=== PATIENT | female | born 1940 | race Caucasian/White ===

== ENCOUNTER 2023-12-13 09:39 | Inpatient (IN) | payer MEDICARE, SELFPAY ==
[2023-12-13] VITALS (16 sets, daily range): BP systolic 91–166; BP diastolic 59–95; PULSE 73–97; RESP 13–26; TEMP 36.3–36.5; O2SAT 94–99
--- NOTE | ~2023-12-13 | XR_ITS ---
EXAMINATION: XR chest 1V DATE: 12/13/2023 10:25 INDICATION: Syncope. Hypoxia. TECHNIQUE: A single frontal view of the chest was obtained. COMPARISON: None. FINDINGS: There is mild atelectasis at left lung base. A horizontal skinfold overlies the upper chest . No pleural effusion or pneumothorax. Cardiomegaly is noted. IMPRESSION: 1. Mild atelectasis at left lung base. 2. Cardiomegaly. Reviewed, dictated and finalized at location []
--- NOTE | ~2023-12-13 | MR_ITS ---
EXAMINATION: MR brain/brain stem wo con DATE: 12/17/2023 11:45 INDICATION: Worsening stroke. TECHNIQUE: Magnetic resonance imaging (MRI) of the brain and brainstem was performed without intraven ous contrast. COMPARISON: Head CT 12/16/2023, 12/13/23 FINDINGS: There is an acute infarct in left cerebellum. There is susceptibility artifact in this dist ribution. There are infarcts involving left parietal lobe, left insula, and left occipital lobe. Ther e is an old infarct in the right thalamus. There are scattered areas of nonspecific increased T2-weig hted signal intensity in the cerebral white matter, which is within normal limits for the patient's a ge. There is no abnormal mass lesion. The ventricles are normal. There is mild mucosal thickening in the ethmoid sinuses. There are likely changes of ocular lens replacement surgeries. The mastoid air c ells are normal. IMPRESSION: 1. Acute infarct in left cerebellum. Susceptibility artifact in this distribution may be calcificatio ns or blood products. 2. Infarcts involving the left parietal lobe, left insula, and left occipital lobe, likely subacute o r chronic. 3. Old infarct in the right thalamus. Reviewed, dictated and finalized at location A. ECTION AGENT IMPRESSION: 1. Acute infarct in left cerebellum. Susceptibility artifact in this distributi on may be calcifications or blood products. 2. Infarcts involving the left parietal lobe, left insula, and left occipital l obe, likely subacute or chronic. 3. Old infarct in the right thalamus.
--- NOTE | ~2023-12-13 | US_ITS ---
EXAMINATION: US venous doppler [facility] DATE: 12/15/2023 12:54 INDICATION: Deep venous anastomosis TECHNIQUE: Grayscale ultrasound images without and with compression and Doppler ultrasound images of the bilateral lower extremity veins were obtained. COMPARISON: None. FINDINGS: Noncompressible thrombus in the right peroneal veins. The visualized portions of right common femoral vein, profunda (deep) femoral vein, femoral vein, popliteal vein, posterior tibial veins, gastrocnem ius vein and greater saphenous vein outflow are patent. Noncompressible thrombus in the left posterior tibial and peroneal veins. The visualized portions of left common femoral vein, profunda femoral vein, femoral vein, popliteal vein, gastrocnemius vein and greater saphenous vein outflow are patent. IMPRESSION: 1. Bilateral [id number] deep venous thrombosis in the right peroneal vein and left posterior tib ial and peroneal veins. Reviewed, dictated and finalized at location A. IMPRESSION: 1. Bilateral [id number] deep venous thrombosis in the right peroneal vein and left posterior tibial and peroneal veins.
--- NOTE | ~2023-12-13 | CT_ITS ---
EXAMINATION: CT chest abdomen pelvis w con DATE: 12/13/2023 14:02 INDICATION: Altered mental status. Vomiting. TECHNIQUE: Computed tomography (CT) of the chest, abdomen, and pelvis was performed with 100 mL Omnip aque 350 intravenous contrast. Automated exposure control and iterative reconstruction technique were employed. The dose-length product was 773.09 mGy-cm. COMPARISON: None FINDINGS: CHEST CT: The lungs demonstrate mild atelectasis. No pleural effusion. Cardiomegaly is noted. There are coronar y artery calcifications. No pericardial effusion. There is a small sliding hiatal hernia. There are n odules in the thyroid measuring up to 8 mm, likely not clinically significant. There is mild thoracic spondylosis. ABDOMEN/PELVIS CT: The liver, spleen, gallbladder, pancreas, and adrenal glands are normal. There is cortical thinning o f the kidneys. There are cysts in left kidney measuring up to 9 mm. There are no dilated loops of bow el. The appendix is normal. There is calcified atherosclerosis of the aorta and many of the other art eries. There is a Wheeler catheter in expected position. There are no pathologically enlarged lymph nod es. There is no free intraperitoneal fluid. There is severe lumbar spondylosis. IMPRESSION: 1. Small sliding hiatal hernia. Reviewed, dictated and finalized at location B.
--- NOTE | ~2023-12-13 | CT_ITS ---
EXAMINATION: CT brain wo con DATE: 12/16/2023 11:19 INDICATION: Stroke presenting with confusion TECHNIQUE: Computed tomography (CT) of the head was performed without intravenous contrast. Sagittal and coronal reconstructions were performed. The mA was adjusted according to patient size. Iterative reconstruction technique was employed. The dose-length product was 605.33 mGy-cm. COMPARISON: head CT dated 12/13/2023 FINDINGS: Again seen is a small region of encephalomalacia in the left cerebral hemisphere consistent with police commissioner augustus infarct. There are a few additional small old lacunar infarcts including at the right basal gangl ia, right thalamus, bilateral subinsular white matter and the anterior left frontal lobe periventricu lar white matter. There is mild scattered white matter hypoattenuation consistent with chronic small vessel ischemic disease. No acute intracranial hemorrhage, acute infarction or abnormal extra axial f luid collection. Symmetric prominence of the sulci consistent with mild age-appropriate diffuse cereb ral volume loss. Ventricles are normal and symmetric. No mass/mass effect. Changes of bilateral intr aocular lens replacement. The orbits, paranasal sinuses and mastoid air cells are normal. Intracrania l calcified cerebral atherosclerosis is noted. IMPRESSION: 1. No acute intracranial process. 2. Unchanged old infarcts in the left cerebellar hemisphere, right thalamus and basal ganglia, left f rontal lobe and bilateral subinsular white matter. 3. Age-related changes including mild diffuse volume loss and mild scattered white matter hypoattenua tion consistent with chronic small vessel ischemic disease. Reviewed, dictated and finalized at location A. CLOSURE SPECIALIST IMPRESSION: 1. No acute intracranial process. 2. 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 3. Age-related changes including mild diffuse volume loss and mild scattered wh ite matter hypoattenuation consistent with chronic small vessel ischemic diseas e.
--- NOTE | ~2023-12-13 | CT_ITS ---
CT head without contrast Indication: Syncope Technique: Serial scans were obtained through the brain without the administration of contrast. Dose reduction technique was used on this scan by utilizing automated exposure control and iterative recon struction technique. The dose-length product (DLP) was 681.00 mGy-cm. Findings: There is no evidence of intracranial hemorrhage, mass lesion, or acute infarct. The ventri cles and subarachnoid spaces are dilated, consistent with mild atrophy. Low attenuation regions are seen within the periventricular white matter bilaterally, likely representing changes from chronic mi crovascular ischemic disease. There is no evidence of edema, mass effect or midline shift. The visu alized paranasal sinuses and mastoid air cells are clear. Impression: No intracranial hemorrhage, mass, or acute infarct. Atrophy and chronic white matter changes, as above. Reviewed, dictated and finalized at location . Impression: No intracranial hemorrhage, mass, or acute infarct. Atrophy and chronic white matter changes, as above.
--- NOTE | 2023-12-13 09:54 | ECG_ITS ---
Test Date: 2023-12-13 09:51:36 Measurements Intervals [place] Rate: 90 P: 19 [place]: 179 QRS: -44 QRSD: 106 T: 110 QT: 373 QTc: 458 Interpretive Statements SINUS RHYTHM LEFT AXIS DEVIATION [QRS AXIS < -30] POSSIBLE ANTERIOR MYOCARDIAL INFARCTION , PROBABLY OLD [30 ms Q WAVE IN V3/V4, OR R < 0.2 mV IN V4] MODERATE T-WAVE ABNORMALITY, CONSIDER LATERAL ISCHEMIA [-0.1+ mV T-WAVE IN I/aVL/V5/V6] No previous ECG available for comparison Electronically Signed On 12-13-2023 11:49:52 CDT by Vick Best M.D.
--- NOTE | 2023-12-13 10:11 | PC.NURSE ---
BS 236
--- NOTE | 2023-12-13 10:12 | PC.NURSE ---
PT TO CT SCAN VIA STRETCHER
[2023-12-13 10:18] LABS: Glucose Point of Care 236 mg/dl (65-105)
[2023-12-13 10:18] LABS: Basophils Absolute Auto 0.1 K/mm3 (0.0-0.1); Basophils Percent Auto 0.7 % (0.2-1.2); Eosinophils Absolute Auto 0.2 K/mm3 (0-0.3); Eosinophils Percent Auto 1.3 % (0-4.4); Hematocrit 34.9 % (37.0-47.0); Hemoglobin 11.4 g/dL (12.0-15.0); Immature Granulocyte Absolute 0.07 K/mm3 (0.00-0.031); Immature Granulocyte Percent A 0.6 % (0-0.5); Lymphocytes Absolute Auto 1.36 K/mm3 (0.9-3.2); Lymphocytes Percent Auto 11.9 % (18.3-44.2); Mean Corpuscular HGB Conc 32.7 g/dl (32-36); Mean Corpuscular Hemoglobin 30.1 pg (26-34); Mean Corpuscular Volume 92.1 fl (80-100); Mean Platelet Volume 10.8 fl (7.4-10.4); Monocytes Absolute Auto 0.7 K/mm3 (0.1-0.6); Monocytes Percent Auto 5.7 % (2.6-8.5); Neutrophils Absolute Auto 9.1 K/mm3 (1.3-6.7); Neutrophils Percent Auto 79.8 % (45.5-73.1); Platelet Count Result 335 k/mm3 (150-375); Red Blood Count 3.79 M/mm3 (4.2-5.4); Red Cell Distribution Width 13.1 % (11.5-14.5); White Blood Count 11.4 K/mm3 (4.5-10.0)
[2023-12-13 10:23] LABS: Add Urine Microscopic? YES; Appearance Urine Cloudy (Clear); Bacteria Urine 4+ /hpf; Bilirubin Urine Negative (Negative); Blood Urine 1+ (Negative); Color Urine Yellow (Yellow); Glucose Urine UA Negative (Negative); Ketones Urine Trace mg/dL (Negative); Leukocyte Esterase Ur 2+ LEU/UL (Negative); Nitrate Urine Negative (Negative); Protein Urine 2+ mg/dL (Negative); Specific Grav Ur 1.018 (1.001-1.035); Squamous Epithelial Cell Urine None Seen /hpf (Few); WBC Urine 21-50 /hpf (0-3); pH Urine 5.5 (5.0-9.0)
[2023-12-13 10:30] LABS: Alanine Aminotransferase 16 U/L (6-35); Albumin Level 3.2 g/dL (3.5-5.1); Alkaline Phosphatase 70 U/L (38-126); Anion Gap 7 mmol/L (4-12); Aspartate Amino Transferase 32 U/L (14-36); Bilirubin,Total 1.1 mg/dL (0.2-1.3); Blood Urea Nitrogen 28 mg/dL (7-17); Calcium 8.6 mg/dL (8.4-10.2); Carbon Dioxide 31 mmol/L (22-30); Chloride 96 mmol/L (98-107); Estimated CRCL calculation 23 ml/min; Estimated Glomerular Filt Rate 43; Glucose 208 mg/dL (65-110); Sodium 134 mmol/L (137-145)
--- NOTE | 2023-12-13 10:47 | ED_ITS ---
HPI - Altered Mental Status General Chief Complaint: Syncope <FRANCISCO Barney Last Filed: 12/14/23 11:05> Stated Complaint: syncope <FRANCISCO Barney Last Filed: 12/14/23 11:05> Time Seen by Provider: 12/13/23 10:07 <FRANCISCO Barney Last Filed: 12/14/23 11:05> Source: patient and EMS <FRANCISCO Barney Last Filed: 12/14/23 11:05> Mode of arrival: EMS <FRANCISCO Barney Last Filed: 12/14/23 11:05> Limitations: altered mental status <FRANCISCO Barney Last Filed: 12/14/23 11:05> History of Present Illness HPI narrative: This is an 83-year-old female that presents to the emergency department for altered mental status. Patient presents via EMS. Daughter is at bedside. Daughter reports she is recently suffered 2 strokes. Is currently in the [facility]. Yesterday she was not feeling well. Reports she struggled to get through therapy. She had an episode of vomiting. Today patient was unresponsive to staff. Noted to be hypoxic. <FRANCISCO Barney Last Filed: 12/14/23 11:05> Related Data Home Medications: Home Medications Medication Instructions Recorded Confirmed aspirin 81 mg tablet,delayed 81 mg PO DAILY 11/14/23 12/13/23 release clopidogrel 75 mg tablet 75 mg PO DAILY 11/14/23 12/13/23 losartan 50 mg tablet 50 mg PO DAILY 11/14/23 12/13/23 meclizine 25 mg tablet 25 mg PO BID PRN Dizziness Or 11/14/23 12/13/23 Vertigo metformin 500 mg tablet 500 mg PO BIDWM 11/14/23 12/13/23 methocarbamol 750 mg tablet 750 mg PO Q8H PRN muscle spasms 11/14/23 12/13/23 metoprolol succinate 25 mg 25 mg PO DAILY 11/14/23 12/13/23 tablet,extended release 24 hr ondansetron 4 mg disintegrating 4 mg PO Q8H PRN Nausea And Vomiting 11/14/23 1 tablet acetaminophen 325 mg tablet 650 mg PO Q6H PRN Pain 11/16/23 12/13/23 amlodipine 5 mg tablet 5 mg PO DAILY 12/13/23 12/13/23 nystatin 100,000 unit/mL oral 5 ml buccal QID 12/13/23 12/13/23 suspension rosuvastatin 20 mg tablet 20 mg PO HS 12/13/23 12/13/23 isosorbide mononitrate 30 mg 30 mg PO DAILY 12/14/23 12/14/23 tablet,extended release 24 hr <Jennifer Vega PA-C - Last Filed: 12/14/23 11:05> Allergies/Adverse Reactions: Allergies Allergy/AdvReac Type Severity Reaction Status Date / Time No Known Allergies Allergy Verified 12/08/23 18:26 <Jennifer Vega PA-C - Last Filed: 12/14/23 11:05> Review of Systems Review of Systems: ROS unobtainable: Yes unobtainable due to mental status <Jennifer Vega PA-C - Last Filed: 12/14/23 11:05> [facility] Past Medical History Medical History: Medical History (Updated 12/14/23 @ 11:03 by Jennifer Vega PA-C) Cognitive communication deficit Dysphagia as late effect of stroke HTN (hypertension) Stroke Type 2 diabetes mellitus with hyperglycemia <Jennifer Vega PA-C - Last Filed: 12/14/23 11:05> Social History Social History: Social History Smoking status: Never smoker Second hand tobacco smoke exposure: Yes Alcohol intake: never Substance use: never Substance use type: does not use Do You Feel Safe in your Home?: Yes Lack of Transportation: No Lack of Food: Never True Current Housing: I Have Housing Concerned About Future Housing: No Difficulty Paying Gas/Electric Bills: No Difficulty Paying for Meds: No Currently Unemployed: No Education: High School Diploma/GED Difficulty w/ Childcare or Family Care: No Living arrangements: with family Gender identity (if verbalized by the patient): Female Sexual Orientation (if Verbalized by the Patient): Straight or Heterosexual Spiritual care concerns: No <Jennifer Vega PA-C - Last Filed: 12/14/23 11:05> Exam Narrative: GENERAL: Ill-appearing, lethargic HEAD: Normocephalic, atraumatic. EYES: PERRLA ENT: Nares clear, no rhinorrhea or epistaxis. Mucous membranes moist. Oropharynx without tonsillar hypertrophy exudate or other lesions. Bilateral TMs pearly castellano non-bulging NECK: Supple. No adenopathy or masses. CHEST: Clear to auscultation. No respiratory distress. No wheezes rales or rhonchi HEART: Regular rate and rhythm. No murmur heard. Normal peripheral pulses. ABDOMEN: Soft, nontender, nondistended, normal active bowel sounds. EXTREMITIES: Normal range of motion. No edema. SKIN: Warm, dry, no rash. NEURO: Right sided weakness from prior CVA. Alert to verbal stimuli. Will follow some commands <Jennifer Vega PA-C - Last Filed: 12/14/23 11:05> Course Course Emergency Course: patient and family updated on workup and recommendation for admission <Jennifer Vega PA-C - Last Filed: 12/14/23 11:05> HEEL SEAT POUNDER/PA Physician Supervision For this patient encounter, I reviewed the HEEL SEAT POUNDER or PA documentation, treatment plan, and medical decision making; and I had [id number] time with this patient. <Bud Pan MD - Last Filed: 12/16/23 17:52> Consultations Consultation #1: spoke with hospitalist about patient and workup who accepts admission <Jennifer Vega PA-C - Last Filed: 12/14/23 11:05> Date: 12/13/23 <Jennifer Vega PA-C - Last Filed: 12/14/23 11:05> Vital Signs Vital signs: Vital Signs Temperature 97.7 F 12/13/23 09:47 Pulse Rate 92 12/13/23 09:47 Respiratory Rate 26 H 12/13/23 09:47 Blood Pressure 96/74 L 12/13/23 09:47 Pulse Oximetry 95 12/13/23 09:47 Oxygen Delivery Nasal Cannula 12/13/23 09:47 Oxygen Flow Rate 2 12/13/23 09:47 Temperature 97.7 F 12/16/23 06:00 Pulse Rate 79 12/16/23 16:00 Respiratory Rate 16 12/16/23 06:00 Blood Pressure 173/86 H 12/16/23 06:00 Pulse Oximetry 98 12/16/23 06:00 Oxygen Delivery Room Air 12/16/23 08:00 Oxygen Flow Rate 2 12/14/23 08:00 Fraction of Inspired Oxygen 21 12/15/23 20:00 <Jennifer Vega PA-C - Last Filed: 12/14/23 11:05> Vital Signs Temperature 97.7 F 12/13/23 09:47 Pulse Rate 92 12/13/23 09:47 Respiratory Rate 26 H 12/13/23 09:47 Blood Pressure 96/74 L 12/13/23 09:47 Pulse Oximetry 95 12/13/23 09:47 Oxygen Delivery Nasal Cannula 12/13/23 09:47 Oxygen Flow Rate 2 12/13/23 09:47 Temperature 97.7 F 12/16/23 06:00 Pulse Rate 79 12/16/23 16:00 Respiratory Rate 16 12/16/23 06:00 Blood Pressure 173/86 H 12/16/23 06:00 Pulse Oximetry 98 12/16/23 06:00 Oxygen Delivery Room Air 12/16/23 08:00 Oxygen Flow Rate 2 12/14/23 08:00 Fraction of Inspired Oxygen 21 12/15/23 20:00 <Bud Pan MD - Last Filed: 12/16/23 17:52> MDM - Altered Mental Status MDM Narrative Medical decision making narrative: patient presents to the emergency department for lethargy. Currently admitted to [facility]. Has suffered 2 strokes recently. This morning was unresponsive. Usually alert and responsive to verbal stimuli. 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 today she is quite lethargic, but is responsive to verbal stimuli and will follow some commands. Hypertensive upon arrival, she did respond to IV fluids. She is afebrile. Reportedly hypoxic at rehab, placed on 2 L nasal cannula. Cbc without leukocytosis. Hemoglobin appears stable. Metabolic panel with evidence of dehydration and acute hypokalemia. Urine without evidence of infection. Influenza, RSV and COVID screens are negative. CT brain is without acute findings. Chest x-ray shows atelectasis. Initial troponin elevated, but down trending. Likely due to infectious state. CT chest/abdomen / pelvis obtained for further evaluation. Shows small sliding hiatal hernia. Patient's family updated on her workup and recommendation for admission. Spoke with hospitalist about patient and workup who accepts admission. Patient will be admitted for IV antibiotics for further management of UTI <Jennifer Vega PA-C - Last Filed: 12/14/23 11:05> Differential Diagnosis Differential diagnosis: Likely altered mental status, delirium, dementia, hyponatremia, sepsis and other ( dehydration, UTI, pneumonia) <Jennifer Vega PA-C - Last Filed: 12/14/23 11:05> Lab Data Attestation: I reviewed the patient's lab results. <Jennifer Vega PA-C - Last Filed: 12/14/23 11:05> Result diagrams: 12/16/23 06:26 12/16/23 06:26 <Jennifer Vega PA-C - Last Filed: 12/14/23 11:05> Labs: Lab Results 12/13/23 12/13/23 12/13/23 Range/Units 10:06 10:08 10:09 WBC 11.4 H (4.5-10.0) K/mm3 RBC 3.79 L (4.2-5.4) M/mm3 Hgb 11.4 L (12.0-15.0) g/dL Hct 34.9 L (37.0-47.0) % MCV 92.1 (80-100) fl MCH 30.1 (26-34) pg MCHC 32.7 (32-36) g/dl RDW 13.1 (11.5-14.5) % Plt Count 335 (150-375) k/mm3 MPV 10.8 H (7.4-10.4) fl Immature Gran % (Auto) 0.6 H (0-0.5) % Neut % (Auto) 79.8 H (45.5-73.1) % Lymph % (Auto) 11.9 L (18.3-44.2) % [place] % (Auto) 5.7 (2.6-8.5) % Eos % (Auto) 1.3 (0-4.4) % Baso % (Auto) 0.7 (0.2-1.2) % Lymph # (Auto) 1.36 (0.9-3.2) K/mm3 [place] # (Auto) 0.7 H (0.1-0.6) K/mm3 Eos # (Auto) 0.2 (0-0.3) K/mm3 Baso # (Auto) 0.1 (0.0-0.1) K/mm3 Abs Immat Gran (auto) 0.07 H (0.00-0.031) K/mm3 Absolute Neuts (auto) 9.1 H (1.3-6.7) K/mm3 Absolute Nucleated RBC 0.000 (0.0-0.012) K/mm3 Nucleated RBC % 0.0 (0.0-0.2) % Sodium 134 L (137-145) mmol/L Potassium 3.0 L (3.4-5.0) mmol/L Chloride 96 L (98-107) mmol/L Carbon Dioxide 31 H (22-30) mmol/L Anion Gap 7 (4-12) mmol/L BUN 28 H (7-17) mg/dL Creatinine 1.20 H (0.7-1.0) mg/dL Estim Creat Clear Calc 23 ml/min Estimated GFR 43 L (59 - ) Glucose 208 H (65-110) mg/dL POC Capillary Glucose 236 H (65-105) mg/dl Hemoglobin A1c (<5.7) % Lactic Acid (0.7-2.0) mmol/L Calcium 8.6 (8.4-10.2) mg/dL Magnesium 1.4 L (1.6-2.3) mg/dL Total Bilirubin 1.1 (0.2-1.3) mg/dL AST 32 (14-36) U/L ALT 16 (6-35) U/L Alkaline Phosphatase 70 (38-126) U/L Troponin I 0.140 H* (0.000-0.034) ng/mL Total Protein 6.0 L (6.3-8.2) g/dL Albumin 3.2 L (3.5-5.1) g/dL Procalcitonin ng/mL Urine Color (Yellow) Urine Appearance (Clear) Urine pH (5.0-9.0) Ur Specific [place] (1.001-1.035) Urine Protein (Negative) mg/dL Urine Glucose (UA) (Negative) mg/dL Urine Ketones (Negative) mg/dL Ur Blood (Man) (Negative) Urine Nitrate (Negative) Urine Bilirubin (Negative) Urine Urobilinogen (<2.0) mg/dL Leukocyte Esterase Rfl (Negative) ROGERS/UL Urine RBC (0-2) /hpf Urine WBC (0-3) /hpf Ur Squamous Epith Cells (Few) /hpf Urine Bacteria /hpf Urine Casts Influenza A (RT-PCR) (Negative) Influenza B (RT-PCR) (Negative) RSV (RT-PCR) (Negative) SARS-CoV-2 RNA (RT-PCR) (Negative) 12/13/23 12/13/23 12/13/23 Range/Units 10:11 11:13 12:48 WBC (4.5-10.0) K/mm3 RBC (4.2-5.4) M/mm3 Hgb (12.0-15.0) g/dL Hct (37.0-47.0) % MCV (80-100) fl MCH (26-34) pg MCHC (32-36) g/dl RDW (11.5-14.5) % Plt Count (150-375) k/mm3 MPV (7.4-10.4) fl Immature Gran % (Auto) (0-0.5) % Neut % (Auto) (45.5-73.1) % Lymph % (Auto) (18.3-44.2) % [place] % (Auto) (2.6-8.5) % Eos % (Auto) (0-4.4) % Baso % (Auto) (0.2-1.2) % Lymph # (Auto) (0.9-3.2) K/mm3 [place] # (Auto) (0.1-0.6) K/mm3 Eos # (Auto) (0-0.3) K/mm3 Baso # (Auto) (0.0-0.1) K/mm3 Abs Immat Gran (auto) (0.00-0.031) K/mm3 Absolute Neuts (auto) (1.3-6.7) K/mm3 Absolute Nucleated RBC (0.0-0.012) K/mm3 Nucleated RBC % (0.0-0.2) % Sodium (137-145) mmol/L Potassium (3.4-5.0) mmol/L Chloride (98-107) mmol/L Carbon Dioxide (22-30) mmol/L Anion Gap (4-12) mmol/L BUN (7-17) mg/dL Creatinine (0.7-1.0) mg/dL Estim Creat Clear Calc ml/min Estimated GFR (59 - ) Glucose (65-110) mg/dL POC Capillary Glucose (65-105) mg/dl Hemoglobin A1c (<5.7) % Lactic Acid 2.0 (0.7-2.0) mmol/L Calcium (8.4-10.2) mg/dL Magnesium (1.6-2.3) mg/dL Total Bilirubin (0.2-1.3) mg/dL AST (14-36) U/L ALT (6-35) U/L Alkaline Phosphatase (38-126) U/L Troponin I (0.000-0.034) ng/mL Total Protein (6.3-8.2) g/dL Albumin (3.5-5.1) g/dL Procalcitonin ng/mL Urine Color Yellow (Yellow) Urine Appearance Cloudy H (Clear) Urine pH 5.5 (5.0-9.0) Ur Specific [place] 1.018 (1.001-1.035) Urine Protein 2+ H (Negative) mg/dL Urine Glucose (UA) Negative (Negative) mg/dL Urine Ketones Trace H (Negative) mg/dL Ur Blood (Man) 1+ H (Negative) Urine Nitrate Negative (Negative) Urine Bilirubin Negative (Negative) Urine Urobilinogen 1.0 (<2.0) mg/dL Leukocyte Esterase Rfl 2+ H (Negative) ROGERS/UL Urine RBC 3-5 H (0-2) /hpf Urine WBC 21-50 H (0-3) /hpf Ur Squamous Epith Cells None seen (Few) /hpf Urine Bacteria 4+ H /hpf Urine Casts 3-5 Influenza A (RT-PCR) Negative (Negative) Influenza B (RT-PCR) Negative (Negative) RSV (RT-PCR) Negative (Negative) SARS-CoV-2 RNA (RT-PCR) Negative (Negative) 12/13/23 12/13/23 12/13/23 Range/Units 16:05 17:32 18:56 WBC (4.5-10.0) K/mm3 RBC (4.2-5.4) M/mm3 Hgb (12.0-15.0) g/dL Hct (37.0-47.0) % MCV (80-100) fl MCH (26-34) pg MCHC (32-36) g/dl RDW (11.5-14.5) % Plt Count (150-375) k/mm3 MPV (7.4-10.4) fl Immature Gran % (Auto) (0-0.5) % Neut % (Auto) (45.5-73.1) % Lymph % (Auto) (18.3-44.2) % [place] % (Auto) (2.6-8.5) % Eos % (Auto) (0-4.4) % Baso % (Auto) (0.2-1.2) % Lymph # (Auto) (0.9-3.2) K/mm3 [place] # (Auto) (0.1-0.6) K/mm3 Eos # (Auto) (0-0.3) K/mm3 Baso # (Auto) (0.0-0.1) K/mm3 Abs Immat Gran (auto) (0.00-0.031) K/mm3 Absolute Neuts (auto) (1.3-6.7) K/mm3 Absolute Nucleated RBC (0.0-0.012) K/mm3 Nucleated RBC % (0.0-0.2) % Sodium (137-145) mmol/L Potassium (3.4-5.0) mmol/L Chloride (98-107) mmol/L Carbon Dioxide (22-30) mmol/L Anion Gap (4-12) mmol/L BUN (7-17) mg/dL Creatinine (0.7-1.0) mg/dL Estim Creat Clear Calc ml/min Estimated GFR (59 - ) Glucose (65-110) mg/dL POC Capillary Glucose 114 H (65-105) mg/dl Hemoglobin A1c (<5.7) % Lactic Acid (0.7-2.0) mmol/L Calcium (8.4-10.2) mg/dL Magnesium (1.6-2.3) mg/dL Total Bilirubin (0.2-1.3) mg/dL AST (14-36) U/L ALT (6-35) U/L Alkaline Phosphatase (38-126) U/L Troponin I 0.097 H* D 0.108 H* (0.000-0.034) ng/mL Total Protein (6.3-8.2) g/dL Albumin (3.5-5.1) g/dL Procalcitonin 0.1 ng/mL Urine Color (Yellow) Urine Appearance (Clear) Urine pH (5.0-9.0) Ur Specific [place] (1.001-1.035) Urine Protein (Negative) mg/dL Urine Glucose (UA) (Negative) mg/dL Urine Ketones (Negative) mg/dL Ur Blood (Man) (Negative) Urine Nitrate (Negative) Urine Bilirubin (Negative) Urine Urobilinogen (<2.0) mg/dL Leukocyte Esterase Rfl (Negative) ROGERS/UL Urine RBC (0-2) /hpf Urine WBC (0-3) /hpf Ur Squamous Epith Cells (Few) /hpf Urine Bacteria /hpf Urine Casts Influenza A (RT-PCR) (Negative) Influenza B (RT-PCR) (Negative) RSV (RT-PCR) (Negative) SARS-CoV-2 RNA (RT-PCR) (Negative) 12/13/23 12/14/23 12/14/23 Range/Units 20:35 04:42 07:58 WBC 8.3 (4.5-10.0) K/mm3 RBC 3.69 L (4.2-5.4) M/mm3 Hgb 11.0 L (12.0-15.0) g/dL Hct 34.5 L (37.0-47.0) % MCV 93.5 (80-100) fl MCH 29.8 (26-34) pg MCHC 31.9 L (32-36) g/dl RDW 12.9 (11.5-14.5) % Plt Count 270 (150-375) k/mm3 MPV 10.7 H (7.4-10.4) fl Immature Gran % (Auto) 0.2 (0-0.5) % Neut % (Auto) 71.9 (45.5-73.1) % Lymph % (Auto) 20.3 (18.3-44.2) % [place] % (Auto) 5.1 (2.6-8.5) % Eos % (Auto) 1.8 (0-4.4) % Baso % (Auto) 0.7 (0.2-1.2) % Lymph # (Auto) 1.68 (0.9-3.2) K/mm3 [place] # (Auto) 0.4 (0.1-0.6) K/mm3 Eos # (Auto) 0.2 (0-0.3) K/mm3 Baso # (Auto) 0.1 (0.0-0.1) K/mm3 Abs Immat Gran (auto) 0.02 (0.00-0.031) K/mm3 Absolute Neuts (auto) 5.9 (1.3-6.7) K/mm3 Absolute Nucleated RBC 0.000 (0.0-0.012) K/mm3 Nucleated RBC % 0.0 (0.0-0.2) % Sodium 136 L (137-145) mmol/L Potassium 3.2 L (3.4-5.0) mmol/L Chloride 102 (98-107) mmol/L Carbon Dioxide 29 (22-30) mmol/L Anion Gap 5 (4-12) mmol/L BUN 19 H (7-17) mg/dL Creatinine 0.90 (0.7-1.0) mg/dL Estim Creat Clear Calc 30 ml/min Estimated GFR 60 (59 - ) Glucose 94 (65-110) mg/dL POC Capillary Glucose 118 H 97 (65-105) mg/dl Hemoglobin A1c 6.6 H (<5.7) % Lactic Acid (0.7-2.0) mmol/L Calcium 8.2 L (8.4-10.2) mg/dL Magnesium 1.8 (1.6-2.3) mg/dL Total Bilirubin 0.8 (0.2-1.3) mg/dL AST 32 (14-36) U/L ALT 15 (6-35) U/L Alkaline Phosphatase 73 (38-126) U/L Troponin I 0.146 H* (0.000-0.034) ng/mL Total Protein 6.0 L (6.3-8.2) g/dL Albumin 3.0 L (3.5-5.1) g/dL Procalcitonin ng/mL Urine Color (Yellow) Urine Appearance (Clear) Urine pH (5.0-9.0) Ur Specific [place] (1.001-1.035) Urine Protein (Negative) mg/dL Urine Glucose (UA) (Negative) mg/dL Urine Ketones (Negative) mg/dL Ur Blood (Man) (Negative) Urine Nitrate (Negative) Urine Bilirubin (Negative) Urine Urobilinogen (<2.0) mg/dL Leukocyte Esterase Rfl (Negative) ROGERS/UL Urine RBC (0-2) /hpf Urine WBC (0-3) /hpf Ur Squamous Epith Cells (Few) /hpf Urine Bacteria /hpf Urine Casts Influenza A (RT-PCR) (Negative) Influenza B (RT-PCR) (Negative) RSV (RT-PCR) (Negative) SARS-CoV-2 RNA (RT-PCR) (Negative) <Jennifer Vega PA-C - Last Filed: 12/14/23 11:05> Lab Results 12/13/23 12/13/23 12/13/23 Range/Units 10:06 10:08 10:09 WBC 11.4 H (4.5-10.0) K/mm3 RBC 3.79 L (4.2-5.4) M/mm3 Hgb 11.4 L (12.0-15.0) g/dL Hct 34.9 L (37.0-47.0) % MCV 92.1 (80-100) fl MCH 30.1 (26-34) pg MCHC 32.7 (32-36) g/dl RDW 13.1 (11.5-14.5) % Plt Count 335 (150-375) k/mm3 MPV 10.8 H (7.4-10.4) fl Immature Gran % (Auto) 0.6 H (0-0.5) % Neut % (Auto) 79.8 H (45.5-73.1) % Lymph % (Auto) 11.9 L (18.3-44.2) % [place] % (Auto) 5.7 (2.6-8.5) % Eos % (Auto) 1.3 (0-4.4) % Baso % (Auto) 0.7 (0.2-1.2) % Lymph # (Auto) 1.36 (0.9-3.2) K/mm3 [place] # (Auto) 0.7 H (0.1-0.6) K/mm3 Eos # (Auto) 0.2 (0-0.3) K/mm3 Baso # (Auto) 0.1 (0.0-0.1) K/mm3 Abs Immat Gran (auto) 0.07 H (0.00-0.031) K/mm3 Absolute Neuts (auto) 9.1 H (1.3-6.7) K/mm3 Absolute Nucleated RBC 0.000 (0.0-0.012) K/mm3 Nucleated RBC % 0.0 (0.0-0.2) % Sodium 134 L (137-145) mmol/L Potassium 3.0 L (3.4-5.0) mmol/L Chloride 96 L (98-107) mmol/L Carbon Dioxide 31 H (22-30) mmol/L Anion Gap 7 (4-12) mmol/L BUN 28 H (7-17) mg/dL Creatinine 1.20 H (0.7-1.0) mg/dL Estim Creat Clear Calc 23 ml/min Estimated GFR 43 L (59 - ) Glucose 208 H (65-110) mg/dL POC Capillary Glucose 236 H (65-105) mg/dl Hemoglobin A1c (<5.7) % Lactic Acid (0.7-2.0) mmol/L Calcium 8.6 (8.4-10.2) mg/dL Magnesium 1.4 L (1.6-2.3) mg/dL Total Bilirubin 1.1 (0.2-1.3) mg/dL AST 32 (14-36) U/L ALT 16 (6-35) U/L Alkaline Phosphatase 70 (38-126) U/L Troponin I 0.140 H* (0.000-0.034) ng/mL Total Protein 6.0 L (6.3-8.2) g/dL Albumin 3.2 L (3.5-5.1) g/dL Procalcitonin ng/mL Urine Color (Yellow) Urine Appearance (Clear) Urine pH (5.0-9.0) Ur Specific [place] (1.001-1.035) Urine Protein (Negative) mg/dL Urine Glucose (UA) (Negative) mg/dL Urine Ketones (Negative) mg/dL Ur Blood (Man) (Negative) Urine Nitrate (Negative) Urine Bilirubin (Negative) Urine Urobilinogen (<2.0) mg/dL Leukocyte Esterase Rfl (Negative) ROGERS/UL Urine RBC (0-2) /hpf Urine WBC (0-3) /hpf Ur Squamous Epith Cells (Few) /hpf Urine Bacteria /hpf Urine Casts Influenza A (RT-PCR) (Negative) Influenza B (RT-PCR) (Negative) RSV (RT-PCR) (Negative) SARS-CoV-2 RNA (RT-PCR) (Negative) 12/13/23 12/13/23 12/13/23 Range/Units 10:11 11:13 12:48 WBC (4.5-10.0) K/mm3 RBC (4.2-5.4) M/mm3 Hgb (12.0-15.0) g/dL Hct (37.0-47.0) % MCV (80-100) fl MCH (26-34) pg MCHC (32-36) g/dl RDW (11.5-14.5) % Plt Count (150-375) k/mm3 MPV (7.4-10.4) fl Immature Gran % (Auto) (0-0.5) % Neut % (Auto) (45.5-73.1) % Lymph % (Auto) (18.3-44.2) % [place] % (Auto) (2.6-8.5) % Eos % (Auto) (0-4.4) % Baso % (Auto) (0.2-1.2) % Lymph # (Auto) (0.9-3.2) K/mm3 [place] # (Auto) (0.1-0.6) K/mm3 Eos # (Auto) (0-0.3) K/mm3 Baso # (Auto) (0.0-0.1) K/mm3 Abs Immat Gran (auto) (0.00-0.031) K/mm3 Absolute Neuts (auto) (1.3-6.7) K/mm3 Absolute Nucleated RBC (0.0-0.012) K/mm3 Nucleated RBC % (0.0-0.2) % Sodium (137-145) mmol/L Potassium (3.4-5.0) mmol/L Chloride (98-107) mmol/L Carbon Dioxide (22-30) mmol/L Anion Gap (4-12) mmol/L BUN (7-17) mg/dL Creatinine (0.7-1.0) mg/dL Estim Creat Clear Calc ml/min Estimated GFR (59 - ) Glucose (65-110) mg/dL POC Capillary Glucose (65-105) mg/dl Hemoglobin A1c (<5.7) % Lactic Acid 2.0 (0.7-2.0) mmol/L Calcium (8.4-10.2) mg/dL Magnesium (1.6-2.3) mg/dL Total Bilirubin (0.2-1.3) mg/dL AST (14-36) U/L ALT (6-35) U/L Alkaline Phosphatase (38-126) U/L Troponin I (0.000-0.034) ng/mL Total Protein (6.3-8.2) g/dL Albumin (3.5-5.1) g/dL Procalcitonin ng/mL Urine Color Yellow (Yellow) Urine Appearance Cloudy H (Clear) Urine pH 5.5 (5.0-9.0) Ur Specific [place] 1.018 (1.001-1.035) Urine Protein 2+ H (Negative) mg/dL Urine Glucose (UA) Negative (Negative) mg/dL Urine Ketones Trace H (Negative) mg/dL Ur Blood (Man) 1+ H (Negative) Urine Nitrate Negative (Negative) Urine Bilirubin Negative (Negative) Urine Urobilinogen 1.0 (<2.0) mg/dL Leukocyte Esterase Rfl 2+ H (Negative) ROGERS/UL Urine RBC 3-5 H (0-2) /hpf Urine WBC 21-50 H (0-3) /hpf Ur Squamous Epith Cells None seen (Few) /hpf Urine Bacteria 4+ H /hpf Urine Casts 3-5 Influenza A (RT-PCR) Negative (Negative) Influenza B (RT-PCR) Negative (Negative) RSV (RT-PCR) Negative (Negative) SARS-CoV-2 RNA (RT-PCR) Negative (Negative) 12/13/23 12/13/23 12/13/23 Range/Units 16:05 17:32 18:56 WBC (4.5-10.0) K/mm3 RBC (4.2-5.4) M/mm3 Hgb (12.0-15.0) g/dL Hct (37.0-47.0) % MCV (80-100) fl MCH (26-34) pg MCHC (32-36) g/dl RDW (11.5-14.5) % Plt Count (150-375) k/mm3 MPV (7.4-10.4) fl Immature Gran % (Auto) (0-0.5) % Neut % (Auto) (45.5-73.1) % Lymph % (Auto) (18.3-44.2) % [place] % (Auto) (2.6-8.5) % Eos % (Auto) (0-4.4) % Baso % (Auto) (0.2-1.2) % Lymph # (Auto) (0.9-3.2) K/mm3 [place] # (Auto) (0.1-0.6) K/mm3 Eos # (Auto) (0-0.3) K/mm3 Baso # (Auto) (0.0-0.1) K/mm3 Abs Immat Gran (auto) (0.00-0.031) K/mm3 Absolute Neuts (auto) (1.3-6.7) K/mm3 Absolute Nucleated RBC (0.0-0.012) K/mm3 Nucleated RBC % (0.0-0.2) % Sodium (137-145) mmol/L Potassium (3.4-5.0) mmol/L Chloride (98-107) mmol/L Carbon Dioxide (22-30) mmol/L Anion Gap (4-12) mmol/L BUN (7-17) mg/dL Creatinine (0.7-1.0) mg/dL Estim Creat Clear Calc ml/min Estimated GFR (59 - ) Glucose (65-110) mg/dL POC Capillary Glucose 114 H (65-105) mg/dl Hemoglobin A1c (<5.7) % Lactic Acid (0.7-2.0) mmol/L Calcium (8.4-10.2) mg/dL Magnesium (1.6-2.3) mg/dL Total Bilirubin (0.2-1.3) mg/dL AST (14-36) U/L ALT (6-35) U/L Alkaline Phosphatase (38-126) U/L Troponin I 0.097 H* D 0.108 H* (0.000-0.034) ng/mL Total Protein (6.3-8.2) g/dL Albumin (3.5-5.1) g/dL Procalcitonin 0.1 ng/mL Urine Color (Yellow) Urine Appearance (Clear) Urine pH (5.0-9.0) Ur Specific [place] (1.001-1.035) Urine Protein (Negative) mg/dL Urine Glucose (UA) (Negative) mg/dL Urine Ketones (Negative) mg/dL Ur Blood (Man) (Negative) Urine Nitrate (Negative) Urine Bilirubin (Negative) Urine Urobilinogen (<2.0) mg/dL Leukocyte Esterase Rfl (Negative) ROGERS/UL Urine RBC (0-2) /hpf Urine WBC (0-3) /hpf Ur Squamous Epith Cells (Few) /hpf Urine Bacteria /hpf Urine Casts Influenza A (RT-PCR) (Negative) Influenza B (RT-PCR) (Negative) RSV (RT-PCR) (Negative) SARS-CoV-2 RNA (RT-PCR) (Negative) 12/13/23 12/14/23 12/14/23 Range/Units 20:35 04:42 07:58 WBC 8.3 (4.5-10.0) K/mm3 RBC 3.69 L (4.2-5.4) M/mm3 Hgb 11.0 L (12.0-15.0) g/dL Hct 34.5 L (37.0-47.0) % MCV 93.5 (80-100) fl MCH 29.8 (26-34) pg MCHC 31.9 L (32-36) g/dl RDW 12.9 (11.5-14.5) % Plt Count 270 (150-375) k/mm3 MPV 10.7 H (7.4-10.4) fl Immature Gran % (Auto) 0.2 (0-0.5) % Neut % (Auto) 71.9 (45.5-73.1) % Lymph % (Auto) 20.3 (18.3-44.2) % [place] % (Auto) 5.1 (2.6-8.5) % Eos % (Auto) 1.8 (0-4.4) % Baso % (Auto) 0.7 (0.2-1.2) % Lymph # (Auto) 1.68 (0.9-3.2) K/mm3 [place] # (Auto) 0.4 (0.1-0.6) K/mm3 Eos # (Auto) 0.2 (0-0.3) K/mm3 Baso # (Auto) 0.1 (0.0-0.1) K/mm3 Abs Immat Gran (auto) 0.02 (0.00-0.031) K/mm3 Absolute Neuts (auto) 5.9 (1.3-6.7) K/mm3 Absolute Nucleated RBC 0.000 (0.0-0.012) K/mm3 Nucleated RBC % 0.0 (0.0-0.2) % Sodium 136 L (137-145) mmol/L Potassium 3.2 L (3.4-5.0) mmol/L Chloride 102 (98-107) mmol/L Carbon Dioxide 29 (22-30) mmol/L Anion Gap 5 (4-12) mmol/L BUN 19 H (7-17) mg/dL Creatinine 0.90 (0.7-1.0) mg/dL Estim Creat Clear Calc 30 ml/min Estimated GFR 60 (59 - ) Glucose 94 (65-110) mg/dL POC Capillary Glucose 118 H 97 (65-105) mg/dl Hemoglobin A1c 6.6 H (<5.7) % Lactic Acid (0.7-2.0) mmol/L Calcium 8.2 L (8.4-10.2) mg/dL Magnesium 1.8 (1.6-2.3) mg/dL Total Bilirubin 0.8 (0.2-1.3) mg/dL AST 32 (14-36) U/L ALT 15 (6-35) U/L Alkaline Phosphatase 73 (38-126) U/L Troponin I 0.146 H* (0.000-0.034) ng/mL Total Protein 6.0 L (6.3-8.2) g/dL Albumin 3.0 L (3.5-5.1) g/dL Procalcitonin ng/mL Urine Color (Yellow) Urine Appearance (Clear) Urine pH (5.0-9.0) Ur Specific [place] (1.001-1.035) Urine Protein (Negative) mg/dL Urine Glucose (UA) (Negative) mg/dL Urine Ketones (Negative) mg/dL Ur Blood (Man) (Negative) Urine Nitrate (Negative) Urine Bilirubin (Negative) Urine Urobilinogen (<2.0) mg/dL Leukocyte Esterase Rfl (Negative) ROGERS/UL Urine RBC (0-2) /hpf Urine WBC (0-3) /hpf Ur Squamous Epith Cells (Few) /hpf Urine Bacteria /hpf Urine Casts Influenza A (RT-PCR) (Negative) Influenza B (RT-PCR) (Negative) RSV (RT-PCR) (Negative) SARS-CoV-2 RNA (RT-PCR) (Negative) <Bud Pan MD - Last Filed: 12/16/23 17:52> Imaging Data Radiologist's impression: ITS Impressions Head CT 12/13/23 10:38 Impression: No intracranial hemorrhage, mass, or acute infarct. Atrophy and chronic white matter changes, as above. Chest X-Ray 12/13/23 10:39 IMPRESSION: 1. Mild atelectasis at left lung base. 2. Cardiomegaly. Chest/Abdomen/Pelvis CT 12/13/23 14:18 IMPRESSION: 1. Small sliding hiatal hernia. <Jennifer Vega PA-C - Last Filed: 12/14/23 11:05> ECG Data EKG #1: ECG completion date: 12/13/23 <Jennifer Vega PA-C - Last Filed: 12/14/23 11:05> EKG Interpretation: normal rate, sinus rhythm, non-specific ST changes and normal QT <Jennifer Vega PA-C - Last Filed: 12/14/23 11:05> Critical Care Time Critical Care Time Critical Care Time: Yes <FRANCISCO Barney Last Filed: 12/14/23 11:05> Total Critical Care Time: 35 <FRANCISCO Barney Last Filed: 12/14/23 11:05> Discharge Plan Discharge Clinical Impression: Acute kidney injury, Dehydration, Acute UTI, Hypokalemia <FRANCISCO Barney Last Filed: 12/14/23 11:05> Patient Disposition: Still a Patient <Jennifer Vega PA-C - Last Filed: 12/14/23 11:05> Condition: Serious <Jennifer Vega PA-C - Last Filed: 12/14/23 11:05>
[2023-12-13] MEDS: POTASSIUM CHLORIDE INJ 40 MEQ in SODIUM CHLORIDE 0.9% IV 500 ML 130 MEQ IVPB (10:56)
[2023-12-13] MEDS: SODIUM CHLORIDE 0.9% IV 500 ML 999 ML IV CONT (10:56)
[2023-12-13 11:58] LABS: Magnesium 1.4 mg/dL (1.6-2.3)
[2023-12-13 12:00] LABS: Influenza A QL RT-PCR Negative (Negative); Influenza B QL RT-PCR Negative (Negative); RSV RNA, RT-PCR Negative (Negative); SARS-CoV-2 RNA PCR Negative (Negative)
[2023-12-13] MEDS: MAGNESIUM SULF 2 GM/WATER 50ML 2 GM/50 ML BAG IVPB (12:10)
--- NOTE | 2023-12-13 14:41 | PC.NURSE ---
Spoke to Trini from Rehab regarding pt status and POC, gave update as requested.
[2023-12-13] MEDS: SODIUM CHLORIDE 0.9% IV 1,000 ML 125 ML IV CONT (14:52)
--- NOTE | 2023-12-13 15:24 | P.HP_ITS ---
H&P: HPI History of Present Illness Date/Time: 12/13/23 15:24 Chief Complaint: AMS Narrative: 83 y/o F presents here with syncope with PMH of HTN, CVA (RUE weakness, dysphagia, expressive aphasia), and diabetes. [facility] after a syncopal event that occurred today. Per daughter's report, they were told when they checked on her this morning that she was unresponsive . Per EMS, she was feeling unwell today and struggled to participate in PT. She then had 1 episode of vomiting and was then unresponsive to staff. Daughter is unsure of exact events. Upon EMS arrival she was noted to be hypoxic and pressure was soft. Arrived on 2L NC at 95% and blood pressure was 96/74. She has recently sustained 2 CVAs with most recent on 12/01/23 with residual deficits - right upper extremity weakness, dysphagia (on modified diet) and expressive aphasia (able to say short sentences/simple sentences). Patient denying shortness of breath, cough, abdominal pain, or dysuria. Initial VS at presentation: 97.7? F, HR in 92, RR 26, 96/74, and 95% on 2L NC. ED workup showed: WBC 11.4, hemoglobin 11.4 (previously 11.3 on 12/09/2023), sodium 134, potassium 3.0, CO2 31, creatinine 1.2 and GFR 43 (previously 0.8 and GFR >60 on 12/09/2023), glucose 208, magnesium 1.4, and initial troponin 0.140, and UA consistent with UTI. Viral PCR negative. Head CT showed no acute findings and atrophy/chronic white matter changes. CXR showed mild atelectasis at left lung base and cardiomegaly. CT chest/abdomen/pelvis with con showed a small sliding hiatal hernia, otherwise unremarkable. Review of Systems Review of Systems: ROS unobtainable: Yes unobtainable due to mental status (Limited) [facility] Past Medical History Medical History (Updated 12/13/23 @ 21:25 by Nette Diop APRN) Cognitive communication deficit Dysphagia as late effect of stroke HTN (hypertension) Stroke Type 2 diabetes mellitus with hyperglycemia Social History Social History Smoking status: Never smoker Second hand tobacco smoke exposure: Yes Alcohol intake: never Substance use: never Substance use type: does not use Do You Feel Safe in your Home?: Yes Lack of Transportation: No Lack of Food: Never True Current Housing: I Have Housing Concerned About Future Housing: No Difficulty Paying Gas/Electric Bills: No Difficulty Paying for Meds: No Currently Unemployed: No Education: High School Diploma/GED Difficulty w/ Childcare or Family Care: No Living arrangements: with family Gender identity (if verbalized by the patient): Female Sexual Orientation (if Verbalized by the Patient): Straight or Heterosexual Spiritual care concerns: No Meds Home Medications and Allergies Home Medications Medication Instructions Recorded Confirmed Type aspirin 81 mg tablet,delayed 81 mg PO DAILY 11/14/23 12/13/23 History release clopidogrel 75 mg tablet 75 mg PO DAILY 11/14/23 12/13/23 History losartan 50 mg tablet 50 mg PO DAILY 11/14/23 12/13/23 History meclizine 25 mg tablet 25 mg PO BID PRN Dizziness Or 11/14/23 12/13/23 History Vertigo metformin 500 mg tablet 500 mg PO BIDWM 11/14/23 12/13/23 History methocarbamol 750 mg tablet 750 mg PO Q8H PRN muscle spasms 11/14/23 12/13/23 History metoprolol succinate 25 mg 25 mg PO DAILY 11/14/23 12/13/23 History tablet,extended release 24 hr ondansetron 4 mg disintegrating 4 mg PO Q8H PRN Nausea And Vomiting 11/14/23 12/13/23 History tablet acetaminophen 325 mg tablet 650 mg PO Q6H PRN Pain 11/16/23 12/13/23 History isosorbide dinitrate 10 mg tablet 10 mg PO TID 12/08/23 12/13/23 History amlodipine 5 mg tablet 5 mg PO DAILY 12/13/23 12/13/23 History nystatin 100,000 unit/mL oral 5 ml buccal QID 12/13/23 12/13/23 History suspension rosuvastatin 20 mg tablet 20 mg PO HS 12/13/23 12/13/23 History Allergies Allergy/AdvReac Type Severity Reaction Status Date / Time No Known Allergies Allergy Verified 12/08/23 18:26 Vital Signs Vital Signs - 24 hr 12/13/23 09:47 12/13/23 09:56 12/13/23 09:57 Temperature 97.7 F Pulse Rate 92 97 Respiratory Rate 26 H Blood Pressure 96/74 L Pulse Oximetry 95 94 Oxygen Delivery Nasal Cannula Nasal Cannula Oxygen Flow Rate 2 2 12/13/23 10:11 12/13/23 10:59 12/13/23 12:12 Temperature 97.5 F L Pulse Rate 91 90 87 Respiratory Rate 15 14 17 Blood Pressure 91/67 L 109/63 109/59 L Pulse Oximetry 94 97 96 Oxygen Delivery Oxygen Flow Rate 12/13/23 14:07 Temperature Pulse Rate 83 Respiratory Rate 13 Blood Pressure 148/77 H Pulse Oximetry 96 Oxygen Delivery Oxygen Flow Rate Exam Const: General: comfortable and no acute distress Other: , female, elderly, mildly ill-appearing HENMT: Face/Nose/Sinus: Normal nares present Mouth: Yes dry mucous membranes Eyes: General: appearance normal, both eyes and all related structures Sclera: sclerae normal Pupils: Equal, round and reactive pupils present EOM: EOMs intact bilaterally Resp: Effort & Inspection: normal respiratory effort Auscultation: clear to auscultation bilaterally Cardio: Rate: regular rate Rhythm: regular rhythm Other: S1-S2 present without murmur, rub, ectopy GI: Other: Abdomen soft, nondistended, nontender. Normoactive bowel sounds in all quadrants. Urinary Catheter: Urinary Catheter: patent and draining Skin: General skin exam: normal color and no rashes or lesions noted Wounds: no wounds Neuro: Other: Patient with spontaneous eye opening. Regards. Able to nod yes and no to simple questions. Extrem: General: normal to inspection Psych: Other: Fair to poor insight and judgment are present, pleasant. H&P: Results Labs Labs: Short CBC 12/13/23 Range/Units 10:08 WBC 11.4 H (4.5-10.0) K/mm3 Hgb 11.4 L (12.0-15.0) g/dL Hct 34.9 L (37.0-47.0) % Plt Count 335 (150-375) k/mm3 [facility] 12/13/23 10:08 Sodium 134 L Potassium 3.0 L Chloride 96 L Carbon Dioxide 31 H BUN 28 H Creatinine 1.20 H Glucose 208 H Calcium 8.6 Cardiac Enzymes 12/13/23 Range/Units 10:09 Troponin I 0.140 H* (0.000-0.034) ng/mL Liver Function 12/13/23 Range/Units 10:08 Total Bilirubin 1.1 (0.2-1.3) mg/dL AST 32 (14-36) U/L ALT 16 (6-35) U/L Alkaline Phosphatase 70 (38-126) U/L Albumin 3.2 L (3.5-5.1) g/dL Urine 12/13/23 Range/Units 10:11 Urine Color Yellow (Yellow) Urine Appearance Cloudy H (Clear) Urine pH 5.5 (5.0-9.0) Ur Specific [place] 1.018 (1.001-1.035) Urine Protein 2+ H (Negative) mg/dL Urine Glucose (UA) Negative (Negative) mg/dL Assessment and Plan Assessment and plan (1) SIRS (systemic inflammatory response syndrome): Code(s): R65.10 - Systemic inflammatory response syndrome (SIRS) of non-infectious origin without acute organ dysfunction Status: Acute Assessment and Plan: - meets SIRS criteria: HR, RR - lactic acid: 2.0, procalcitonin added - 30 mL/kg = 720, 1L bolus given - suspected source: UTI - started on ceftriaxone - blood cultures drawn on 12/12 - UA consistent with UTI - CXR showing no pneumonia - monitor hemodynamic stability and temp (2) Altered mental status: Qualifiers: Altered mental status type: somnolence Qualified Code(s): R40.0 - Henry nolence Code(s): R41.82 - Altered mental status, unspecified Status: Acute Assessment and Plan: - EKG, initial: Sinus rhythm, rate 90, left axis deviation, possible anterior DC probably old, moderate T-wave abnormality consider lateral ischemia. No previous available for comparison. - head CT: no intracranial hemorrhage mass or acute infarct. atrophy and chronic white matter changes, see report. - CXR: Mild atelectasis at left lung base and cardiomegaly. - CT chest/abdomen/pelvis with con: small sliding hiatal hernia. - Troponin: 0.140 -> 0.097 -> 0.108, no chest pain or shortness of breath - ASA 324 ordered and SL nitro PRN - suspect alteration is multifactorial secondary to hypoxia, UTI, and hypotension. - telemetry monitoring Currently improving post fluids and antibiotic initiation. Now able to sustain wakefulness. (3) UTI (urinary tract infection): Qualifiers: Hematuria presence: without hematuria Urinary tract infection type: acute cystitis Qualified Code(s): N30.00 - Acute cystitis without hematuria Code(s): N39.0 - Urinary tract infection, site not specified Status: Acute Assessment and Plan: - UA: Cloudy, 2+ protein, trace ketones, 1+ blood, 2+ leuk esterase, 3-5 RBC, 21-50 WBC, no epithelial cells, 4+ bacteria - UC pending - no previous micro available for review - started on Ceftriaxone on 12/12 - rene exchanged on 12/12, originally placed post-CVA on 11/30 (4) Type 2 diabetes mellitus: Qualifiers: Diabetes mellitus complication status: without complication Diabetes mellitus skilled nursing insulin use: without director long term care use Qualified Code(s): E11.9 - Type 2 diabetes mellitus without complications Code(s): E11.9 - Type 2 diabetes mellitus without complications Status: Chronic Assessment and Plan: - hypoglycemia protocol - POC blood glucose ACHS - home medication: Hold metformin - correct regimen ordered - low dose TIDWM, based off BMI - A1C ordered (5) HTN (hypertension): Qualifiers: Hypertension type: primary hypertension Qualified Code(s): I10 - Essential (primary) hypertension Code(s): I10 - Essential (primary) hypertension Status: Chronic Assessment and Plan: - chronic, currently 166/95 - home medications: Continue amlodipine 5 mg and metoprolol 25 mg ER daily. Hold losartan given recent hypotension. Resume when appropriate. - monitor Plan Mild hypomagnesia and hypokalemia, repleted. Monitor. Diet: Diabetic, pureed level 4 GI Prophylaxis: Not currently indicated DVT Prophylaxis: SCDs Lines: Peripheral Code Status: Full code Quality VTE Prophylaxis VTE prophylaxis: mechanical ordered Hospitalist MIPS Advance Care Plan I have confirmed that the patient's Advanced Care Plan is present, code status is documented, or surrogate decision maker is listed in patient medical record.: Yes Medication Reconciliation I have utilized all available resources to obtain, update and review the patients current medications (includes all prescriptions, OTC, herbals, cannabis, and nutritional supplements).: Yes
--- NOTE | 2023-12-13 15:57 | ECG_ITS ---
Test Date: 2023-12-13 16:09:17 Measurements Intervals [place] Rate: 78 P: 25 ME: 183 QRS: -29 QRSD: 97 T: 108 QT: 389 QTc: 444 Interpretive Statements SINUS RHYTHM WITH OCCASIONAL SUPRAVENTRICULAR PREMATURE COMPLEXES DELAYED PRECORDIAL R/S TRANSITION CONSIDER INFERIOR INFARCT, AGE INDETERMINATE ST-T WAVE ABNORMALITY IN HIGH LATERAL LEADS- CONSIDER ISCHEMIA BASELINE ARTIFACT- V4 ABNORMAL ECG Compared to ECG 12/13/2023 09:51:36 NO SIGNIFICANT CHANGE Electronically Signed On 12-14-2023 06:42:04 CDT by Tomasz Schafer D.O.
--- NOTE | 2023-12-13 16:42 | ADMGEN ---
Addendum entered by Denita Landry RN 12/13/23 18:18: Report received from CIELO Richards @ [phone]. Pt arrived to the floor at 1628 Original Note: This patient, Alba Thayer, was admitted to IMU Room 204-01. Patient/family oriented to hospital policies and general routines including ID bracelet, bed and alarms, visiting hours, pain management, procedures, bathroom and other care routines, personal items, smoking policy, room service/diet, and visiting hours. Information on how to activate the Rapid Response Team has been discussed. Patient/Family are encouraged to report perceived risks to care and to ask questions if they do not understand what they are told or what they should do.
[2023-12-13 16:53] LABS: Troponin I 0.097 ng/mL (0.000-0.034)
[2023-12-13 17:35] LABS: Glucose Point of Care 114 mg/dl (65-105)
[2023-12-13] MEDS: ASPIRIN 81 MG CHEWABLE TABLET 324 MG PO (18:09)
--- NOTE | 2023-12-13 18:30 | PC.NURSE ---
Spoke with Nette Diop NP regarding pt's Wheeler catheter. There is no documentation, nor was it reported to this RN if the Wheeler catheter had been exchanged in the ED. New order to exchanged catheter, and obtain new urine culture after catheter has been exchanged.
[2023-12-13 19:32] LABS: Troponin I 0.108 ng/mL (0.000-0.034)
[2023-12-13 19:58] LABS: Procalcitonin 0.1 ng/mL
[2023-12-13 20:41] LABS: Glucose Point of Care 118 mg/dl (65-105)
[2023-12-13] MEDS: ROSUVASTATIN 20 MG TABLET PO (22:29)
[2023-12-13] MEDS: NYSTATIN 100,000 UNITS/ML SUSP 5 ML ORAL.SUSP BY MOUTH (22:29)
[2023-12-14] VITALS (17 sets, daily range): BP systolic 124–175; BP diastolic 70–95; PULSE 68–87; RESP 14–18; TEMP 36.4–36.7; O2SAT 95–100
[2023-12-14] MEDS: SODIUM CHLORIDE 0.9% IV 1,000 ML 125 ML IV CONT ×3 (00:49→17:19)
[2023-12-14 05:16] LABS: Basophils Absolute Auto 0.1 K/mm3 (0.0-0.1); Basophils Percent Auto 0.7 % (0.2-1.2); Eosinophils Absolute Auto 0.2 K/mm3 (0-0.3); Eosinophils Percent Auto 1.8 % (0-4.4); Hematocrit 34.5 % (37.0-47.0); Immature Granulocyte Absolute 0.02 K/mm3 (0.00-0.031); Immature Granulocyte Percent A 0.2 % (0-0.5); Lymphocytes Absolute Auto 1.68 K/mm3 (0.9-3.2); Lymphocytes Percent Auto 20.3 % (18.3-44.2); Mean Corpuscular HGB Conc 31.9 g/dl (32-36); Mean Corpuscular Hemoglobin 29.8 pg (26-34); Mean Corpuscular Volume 93.5 fl (80-100); Mean Platelet Volume 10.7 fl (7.4-10.4); Monocytes Absolute Auto 0.4 K/mm3 (0.1-0.6); Monocytes Percent Auto 5.1 % (2.6-8.5); Neutrophils Absolute Auto 5.9 K/mm3 (1.3-6.7); Neutrophils Percent Auto 71.9 % (45.5-73.1); Platelet Count Result 270 k/mm3 (150-375); Red Blood Count 3.69 M/mm3 (4.2-5.4); Red Cell Distribution Width 12.9 % (11.5-14.5); White Blood Count 8.3 K/mm3 (4.5-10.0)
[2023-12-14 05:26] LABS: Hemoglobin A1C 6.6 % (<5.7)
[2023-12-14 05:33] LABS: Alanine Aminotransferase 15 U/L (6-35); Alkaline Phosphatase 73 U/L (38-126); Anion Gap 5 mmol/L (4-12); Aspartate Amino Transferase 32 U/L (14-36); Bilirubin,Total 0.8 mg/dL (0.2-1.3); Blood Urea Nitrogen 19 mg/dL (7-17); Calcium 8.2 mg/dL (8.4-10.2); Carbon Dioxide 29 mmol/L (22-30); Chloride 102 mmol/L (98-107); Estimated CRCL calculation 30 ml/min; Estimated Glomerular Filt Rate 60; Glucose 94 mg/dL (65-110); Magnesium 1.8 mg/dL (1.6-2.3); Potassium 3.2 mmol/L (3.4-5.0); Sodium 136 mmol/L (137-145)
[2023-12-14 05:48] LABS: Troponin I 0.146 ng/mL (0.000-0.034)
[2023-12-14 08:00] LABS: Glucose Point of Care 97 mg/dl (65-105)
[2023-12-14] MEDS: CLOPIDOGREL BISULFATE 75 MG TABLET PO (08:10)
[2023-12-14] MEDS: amLODIPine BESYLATE 5 MG TABLET PO (08:11)
[2023-12-14] MEDS: METOPROLOL SUCCINATE EXT REL 25 MG TABCR PO (08:11)
[2023-12-14] MEDS: NYSTATIN 100,000 UNITS/ML SUSP 5 ML ORAL.SUSP BY MOUTH ×4 (08:11→20:02)
[2023-12-14] MEDS: ASPIRIN 81 MG ENTERIC TABLET PO (08:11)
[2023-12-14] MEDS: ISOSORBIDE MONONITRATE 30 MG TAB.ER.24H PO (08:12)
--- NOTE | 2023-12-14 08:46 | PM.IMPN ---
Progress Note: A&P Assessment and Plan (1) Altered mental status: Qualifiers: Altered mental status type: somnolence Qualified Code(s): R40.0 - Somnolence Code(s): R41.82 - Altered mental status, unspecified Status: Acute (2) SIRS (systemic inflammatory response syndrome): Code(s): R65.10 - Systemic inflammatory response syndrome (SIRS) of non-infectious origin without acute organ dysfunction Status: Acute (3) HTN (hypertension): Qualifiers: Hypertension type: primary hypertension Qualified Code(s): I10 - Essential (primary) hypertension Code(s): I10 - Essential (primary) hypertension Status: Chronic (4) UTI (urinary tract infection): Qualifiers: Hematuria presence: without hematuria Urinary tract infection type: acute cystitis Qualified Code(s): N30.00 - Acute cystitis without hematuria Code(s): N39.0 - Urinary tract infection, site not specified Status: Acute (5) Type 2 diabetes mellitus: Qualifiers: Diabetes mellitus complication status: without complication Diabetes mellitus [employer] insulin use: without long-term use Qualified Code(s): E11.9 - Type 2 diabetes mellitus without complications Code(s): E11.9 - Type 2 diabetes mellitus without complications Status: Chronic Plan SEPSIS - meets Sepsis criteria: HR, RR, leukocytosis 11,400 Likely resulting from UTI - lactic acid: 2.0, procalcitonin added - 30 mL/kg = 720, 1L bolus given - suspected source: UTI - started on ceftriaxone - blood cultures drawn on 12/12 - UA consistent with UTI - CXR showing no pneumonia - monitor hemodynamic stability and temp Acute encephalopathy -head CT: no intracranial hemorrhage mass or acute infarct. atrophy and chronic white matter changes, see report. Likely secondary to UTI, dehydration Neuro check KAUSHAL Elevated BUN creatinine above baseline, upon arrival 28 over 1.2, baseline creatinine 0.8 December 09, 2023 Likely secondary to dehydration and UTI Received antibiotics continue normal saline 125 mL/hour Creatinine is trending down Hypokalemia Hypokalemia upon arrival, Replete with potassium chloride 40 mEq daily p.o. Follow-up BMP, magnesium level Elevated troponin EKG, initial: Sinus rhythm, rate 90, left axis deviation, possible anterior CO probably old, moderate T-wave abnormality consider lateral ischemia. No previous available for comparison. - CXR: Mild atelectasis at left lung base and cardiomegaly. - CT chest/abdomen/pelvis with con: small sliding hiatal hernia. - Troponin: Positive serial troponin no chest pain or shortness of breath - ASA 324 ordered and SL nitro PRN - suspect alteration is multifactorial secondary to hypoxia, UTI, and hypotension. - telemetry monitoring Follow-up echocardiogram, consult Cardiology UTI (urinary tract infection): Qualifiers: Hematuria presence: without hematuria Urinary tract infection type: acute cystitis Qualified Code(s): N30.00 - Acute cystitis without hematuria Code(s): N39.0 - Urinary tract infection, site not specified Status: Acute Assessment and Plan: - UA: Cloudy, 2+ protein, trace ketones, 1+ blood, 2+ leuk esterase, 3-5 RBC, 21-50 WBC, no epithelial cells, 4+ bacteria - UC pending - no previous micro available for review - started on Ceftriaxone on 12/12 - rene exchanged on 12/12, originally placed post-CVA on 11/30 Type 2 diabetes mellitus: Qualifiers: Diabetes mellitus complication status: without complication Diabetes mellitus long-term insulin use: without [employer] use Qualified Code(s): E11.9 - Type 2 diabetes mellitus without complications Code(s): E11.9 - Type 2 diabetes mellitus without complications Status: Chronic Assessment and Plan: - hypoglycemia protocol - POC blood glucose ACHS - home medication: Hold metformin - correct regimen ordered - low dose TIDWM, based off BMI - A1C ordered HTN (hypertension): Qualifiers: Hypertension type: primary hypertension Qualified Code(s): I10 - Essential (primary) hypertension Code(s): I10 - Essential (primary) hypertension Status: Chronic Assessment and Plan: - chronic, currently 166/95 - home medications: Continue amlodipine 5 mg and metoprolol 25 mg ER daily. Hold losartan given recent hypotension. Resume when appropriate. - monitor Subjective Date/time seen: 12/14/23 08:46 Interval history: I saw and examined patient in presents of patient's daughter and granddaughter. Patient was lethargic, able to answer questions, patient is confused, patient has no appetite. Patient denies abdomen pain, nausea vomiting diarrhea. Labs reviewed, patient is afebrile, blood pressure stable, Exam Narrative: GENERAL: Pleasant, in no acute distress. Well-nourished. - EYES: EOMI. Anicteric. - HENT: Dry mucous membranes. - LUNGS: Clear to auscultation bilaterally, no wheezing, rhonchi, or rales. - CARDIOVASCULAR: Regular rate and rhythm. No murmur. No JVD. - ABDOMEN: Soft, non-tender and non-distended. No palpable masses. - EXTREMITIES: No edema. Peripheral pulses 2+. Non-tender. - NEUROLOGIC: No focal neurological deficits. CN II-XII grossly intact. Focal weakness, - PSYCHIATRIC: Awake, Alert and not oriented x 3. Appropriate mood and affect. - SKIN: No rashes or lesions. Warm. - LYMPH: No cervical lymphadenopathy. Objective Data Vital Signs Vital Signs: Vital Signs - 24 hr 12/13/23 09:47 12/13/23 09:56 12/13/23 09:57 Temperature 97.7 F Pulse Rate 92 97 Respiratory Rate 26 H Blood Pressure 96/74 L Pulse Oximetry 95 94 Oxygen Delivery Nasal Cannula Nasal Cannula Oxygen Flow Rate 2 2 12/13/23 10:11 12/13/23 10:59 12/13/23 12:12 Temperature 97.5 F L Pulse Rate 91 90 87 Respiratory Rate 15 14 17 Blood Pressure 91/67 L 109/63 109/59 L Pulse Oximetry 94 97 96 Oxygen Delivery Oxygen Flow Rate 12/13/23 14:07 12/13/23 16:00 12/13/23 16:44 Temperature 97.3 F L Pulse Rate 83 81 84 Respiratory Rate 13 17 18 Blood Pressure 148/77 H 154/88 H 150/84 H Pulse Oximetry 96 98 99 Oxygen Delivery Oxygen Flow Rate 12/13/23 17:30 12/13/23 18:00 12/13/23 20:07 Temperature 97.7 F Pulse Rate 89 87 Respiratory Rate 18 Blood Pressure 166/95 H Pulse Oximetry 99 97 Oxygen Delivery Nasal Cannula Oxygen Flow Rate 2 12/13/23 20:50 12/13/23 20:00 12/13/23 22:00 Temperature Pulse Rate 87 83 73 Respiratory Rate 18 Blood Pressure Pulse Oximetry 97 Oxygen Delivery Nasal Cannula Oxygen Flow Rate 2 12/13/23 23:50 12/14/23 00:00 12/14/23 00:43 Temperature 97.7 F Pulse Rate 73 84 87 Respiratory Rate 18 18 Blood Pressure 153/76 H Pulse Oximetry 97 100 Oxygen Delivery Nasal Cannula Oxygen Flow Rate 2 12/14/23 02:00 12/14/23 03:45 12/14/23 04:00 Temperature Pulse Rate 84 84 80 Respiratory Rate 18 Blood Pressure Pulse Oximetry 100 Oxygen Delivery Nasal Cannula Oxygen Flow Rate 2 12/14/23 04:45 12/14/23 06:00 12/14/23 08:11 Temperature 97.6 F Pulse Rate 82 73 86 Respiratory Rate 18 Blood Pressure 171/95 H Pulse Oximetry 95 Oxygen Delivery Oxygen Flow Rate 12/14/23 08:14 Temperature Pulse Rate Respiratory Rate Blood Pressure 175/91 H Pulse Oximetry Oxygen Delivery Oxygen Flow Rate Intake/Output Intake/Output: Intake & Output 12/11/23 12/12/23 12/13/23 12/14/23 23:59 23:59 23:59 23:59 Intake Total 1120 2097.9 Output Total 300 1300 Balance 820 797.9 Meds/Results Medications: Active Medications Generic Name Dose Route Start Last Admin Trade Name Freq PRN Reason Stop Dose Admin Acetaminophen 650 mg 12/13/23 21:22 Acetaminophen 325 Mg Tablet PO Q6H PRN PAIN RATED 1-3 Amlodipine Besylate 5 mg 12/14/23 09:00 12/14/23 08:11 Amlodipine Besylate 5 Mg Tablet PO 5 mg DAILY SARA Administration Aspirin 81 mg 12/14/23 09:00 12/14/23 08:11 Aspirin 81 Mg Enteric Tablet PO 81 mg DAILY SARA Administration Clopidogrel Bisulfate 75 mg 12/14/23 09:00 12/14/23 08:10 Clopidogrel Bisulfate 75 Mg Tablet PO 75 mg DAILY SARA Administration Dextrose 12.5 gm 12/13/23 15:48 Dextrose 50% 25 Gm/50 Ml Syringe IV PUSH PRN PRN Hypoglycemia Protocol Glucagon 1 mg 12/13/23 15:48 Glucagon For Inj 1 Mg Vial IM PRN PRN Hypoglycemia Protocol Glucose 15 gm 12/13/23 15:48 Glucose Oral Gel 15 Gm Of Glucse In 37.5 Gm Tube PO PRN PRN Hypoglycemia Protocol Sodium Chloride 1,000 mls @ 125 mls/hr 12/13/23 14:45 12/14/23 08:24 Normal Saline Iv IV CONT 125 mls/hr .Q8H SARA Administration Ceftriaxone Sodium 1 gm in 50 mls @ 100 mls/hr 12/14/23 11:00 Rocephin 1 Gm/Ns 50 Ml IVPB Q24H SARA Dextrose 1,000 mls @ 100 mls/hr 12/13/23 15:48 Dextrose 5% 1,000 Ml IVPB PRN PRN Hypoglycemia Protocol Insulin Aspart 2 - 5 units 12/13/23 17:00 12/14/23 08:13 Insulin Aspart (*Bkc) 100 Units/Ml SUB-Q Not Given TIDWM [facility] Protocol Isosorbide Mononitrate 30 mg 12/14/23 09:00 12/14/23 08:12 Isosorbide Mononitrate 30 Mg Tab.Er.24h PO 30 mg DAILY SARA Administration Meclizine HCl 25 mg 12/13/23 21:22 Meclizine Hcl 25 Mg Tablet PO BID PRN Dizziness Or Vertigo Methocarbamol 750 mg 12/13/23 21:22 Methocarbamol 750 Mg Tablet PO Q8H PRN muscle spasms Metoprolol Succinate 25 mg 12/14/23 09:00 12/14/23 08:11 Metoprolol Succinate Ext Rel 25 Mg Tabcr PO 25 mg DAILY SARA Administration Nystatin 5 ml 12/13/23 21:35 12/14/23 08:11 Nystatin 100,000 Units/Ml Susp 5 Ml Oral.Susp BY MOUTH 5 ml QID SARA Administration Ondansetron HCl 4 mg 12/13/23 21:22 Ondansetron Hcl Odt 4 Mg Tablet PO Q8H PRN Nausea And Vomiting Rosuvastatin Calcium 20 mg 12/13/23 21:35 12/13/23 22:29 Rosuvastatin 20 Mg Tablet PO 20 mg HS SARA Administration Radiology Results: ITS Impressions Head CT 12/13/23 10:38 Impression: No intracranial hemorrhage, mass, or acute infarct. Atrophy and chronic white matter changes, as above. Chest X-Ray 12/13/23 10:39 IMPRESSION: 1. Mild atelectasis at left lung base. 2. Cardiomegaly. Chest/Abdomen/Pelvis CT 12/13/23 14:18 IMPRESSION: 1. Small sliding hiatal hernia. Labs Labs: Laboratory Results - last 24 hr 12/13/23 12/13/23 12/13/23 10:06 10:08 10:09 WBC 11.4 H RBC 3.79 L Hgb 11.4 L Hct 34.9 L MCV 92.1 MCH 30.1 MCHC 32.7 RDW 13.1 Plt Count 335 MPV 10.8 H Immature Gran % (Auto) 0.6 H Neut % (Auto) 79.8 H Lymph % (Auto) 11.9 L [place] % (Auto) 5.7 Eos % (Auto) 1.3 Baso % (Auto) 0.7 Lymph # (Auto) 1.36 [place] # (Auto) 0.7 H Eos # (Auto) 0.2 Baso # (Auto) 0.1 Abs Immat Gran (auto) 0.07 H Absolute Neuts (auto) 9.1 H Absolute Nucleated RBC 0.000 Nucleated RBC % 0.0 Sodium 134 L Potassium 3.0 L Chloride 96 L Carbon Dioxide 31 H Anion Gap 7 BUN 28 H Creatinine 1.20 H Estim Creat Clear Calc 23 Estimated GFR 43 L Glucose 208 H POC Capillary Glucose 236 H Hemoglobin A1c Lactic Acid Calcium 8.6 Magnesium 1.4 L Total Bilirubin 1.1 AST 32 ALT 16 Alkaline Phosphatase 70 Troponin I 0.140 H* Total Protein 6.0 L Albumin 3.2 L Procalcitonin Urine Color Urine Appearance Urine pH Ur Specific Simpson Urine Protein Urine Glucose (UA) Urine Ketones Ur Blood (Man) Urine Nitrate Urine Bilirubin Urine Urobilinogen Leukocyte Esterase Rfl Urine RBC Urine WBC Ur Squamous Epith Cells Urine Bacteria Urine Casts Influenza A (RT-PCR) Influenza B (RT-PCR) RSV (RT-PCR) SARS-CoV-2 RNA (RT-PCR) 12/13/23 12/13/23 12/13/23 10:11 11:13 12:48 WBC RBC Hgb Hct MCV MCH MCHC RDW Plt Count MPV Immature Gran % (Auto) Neut % (Auto) Lymph % (Auto) [place] % (Auto) Eos % (Auto) Baso % (Auto) Lymph # (Auto) [place] # (Auto) Eos # (Auto) Baso # (Auto) Abs Immat Gran (auto) Absolute Neuts (auto) Absolute Nucleated RBC Nucleated RBC % Sodium Potassium Chloride Carbon Dioxide Anion Gap BUN Creatinine Estim Creat Clear Calc Estimated GFR Glucose POC Capillary Glucose Hemoglobin A1c Lactic Acid 2.0 Calcium Magnesium Total Bilirubin AST ALT Alkaline Phosphatase Troponin I Total Protein Albumin Procalcitonin Urine Color Yellow Urine Appearance Cloudy H Urine pH 5.5 Ur Specific Simpson 1.018 Urine Protein 2+ H Urine Glucose (UA) Negative Urine Ketones Trace H Ur Blood (Man) 1+ H Urine Nitrate Negative Urine Bilirubin Negative Urine Urobilinogen 1.0 Leukocyte Esterase Rfl 2+ H Urine RBC 3-5 H Urine WBC 21-50 H Ur Squamous Epith Cells None seen Urine Bacteria 4+ H Urine Casts 3-5 Influenza A (RT-PCR) Negative Influenza B (RT-PCR) Negative RSV (RT-PCR) Negative SARS-CoV-2 RNA (RT-PCR) Negative 12/13/23 12/13/23 12/13/23 16:05 17:32 18:56 WBC RBC Hgb Hct MCV MCH MCHC RDW Plt Count MPV Immature Gran % (Auto) Neut % (Auto) Lymph % (Auto) [place] % (Auto) Eos % (Auto) Baso % (Auto) Lymph # (Auto) [place] # (Auto) Eos # (Auto) Baso # (Auto) Abs Immat Gran (auto) Absolute Neuts (auto) Absolute Nucleated RBC Nucleated RBC % Sodium Potassium Chloride Carbon Dioxide Anion Gap BUN Creatinine Estim Creat Clear Calc Estimated GFR Glucose POC Capillary Glucose 114 H Hemoglobin A1c Lactic Acid Calcium Magnesium Total Bilirubin AST ALT Alkaline Phosphatase Troponin I 0.097 H* D 0.108 H* Total Protein Albumin Procalcitonin 0.1 Urine Color Urine Appearance Urine pH Ur Specific Simpson Urine Protein Urine Glucose (UA) Urine Ketones Ur Blood (Man) Urine Nitrate Urine Bilirubin Urine Urobilinogen Leukocyte Esterase Rfl Urine RBC Urine WBC Ur Squamous Epith Cells Urine Bacteria Urine Casts Influenza A (RT-PCR) Influenza B (RT-PCR) RSV (RT-PCR) SARS-CoV-2 RNA (RT-PCR) 12/13/23 12/14/23 12/14/23 20:35 04:42 07:58 WBC 8.3 RBC 3.69 L Hgb 11.0 L Hct 34.5 L MCV 93.5 MCH 29.8 MCHC 31.9 L RDW 12.9 Plt Count 270 MPV 10.7 H Immature Gran % (Auto) 0.2 Neut % (Auto) 71.9 Lymph % (Auto) 20.3 [place] % (Auto) 5.1 Eos % (Auto) 1.8 Baso % (Auto) 0.7 Lymph # (Auto) 1.68 [place] # (Auto) 0.4 Eos # (Auto) 0.2 Baso # (Auto) 0.1 Abs Immat Gran (auto) 0.02 Absolute Neuts (auto) 5.9 Absolute Nucleated RBC 0.000 Nucleated RBC % 0.0 Sodium 136 L Potassium 3.2 L Chloride 102 Carbon Dioxide 29 Anion Gap 5 BUN 19 H Creatinine 0.90 Estim Creat Clear Calc 30 Estimated GFR 60 Glucose 94 POC Capillary Glucose 118 H 97 Hemoglobin A1c 6.6 H Lactic Acid Calcium 8.2 L Magnesium 1.8 Total Bilirubin 0.8 AST 32 ALT 15 Alkaline Phosphatase 73 Troponin I 0.146 H* Total Protein 6.0 L Albumin 3.0 L Procalcitonin Urine Color Urine Appearance Urine pH Ur Specific Simpson Urine Protein Urine Glucose (UA) Urine Ketones Ur Blood (Man) Urine Nitrate Urine Bilirubin Urine Urobilinogen Leukocyte Esterase Rfl Urine RBC Urine WBC Ur Squamous Epith Cells Urine Bacteria Urine Casts Influenza A (RT-PCR) Influenza B (RT-PCR) RSV (RT-PCR) SARS-CoV-2 RNA (RT-PCR)
--- NOTE | 2023-12-14 08:55 | ECHO_ITS ---
Patient Info Name: Alba Thayer Age: 83 years : 1940 Gender: Female Ht: 61 in Wt: 130 lbs BSA: 1.60 m2 HR: 77 bpm BP: 145 / 81 mmHg Heart Rhythm: Sinus Rhythm Technical Quality: Good Exam Date: 12/14/2023 11:08 AM Exam Location: Echo Lab Patient Status: Inpatient Admit Date: 12/14/2023 Staff Ordering Physician: Darius Obrien MD Sales And Service Change Leader: Tomeka Brewer RDCS Attending Provider: Chema Beavers MD Exam Type: CA echo doppler color flow Study Info Indications - elevated troponin Complete two-dimensional, color flow and Doppler transthoracic echocardiogram is performed. Summary 1. Complete two-dimensional, color flow and Doppler transthoracic echocardiogram is performed. 2. Left ventricular chamber dimension is normal. 3. Left ventricular systolic function is normal, estimated at 60-65%. 4. There is moderate concentric increased left ventricular wall thickness. 5. The left ventricular diastolic function is grade I diastolic dysfunction. 6. E/e' 14 is mildly elevated. 7. Left atrial chamber dimension is moderately enlarged. 8. There is trace mitral valve regurgitation. 9. There is trace tricuspid valve regurgitation. 10. No pulmonary hypertension, estimated pulmonary arterial systolic pressure is 33 mmHg. 11. There is trivial pericardial effusion. Left Ventricle E/e' 14 is mildly elevated. Left ventricular chamber dimension is normal. Left ventricular systolic function is normal, estimated at 60-65%. There is moderate concentric increased left ventricular wall thickness. The left ventricular diastolic function is grade I diastolic dysfunction. Right Ventricle Right ventricular systolic function is normal and with normal TAPSE 1.8 cm. Right ventricular chamber dimension is normal. Left Atria Left atrial chamber dimension is moderately enlarged. Right Atria Right atrial chamber dimension is normal. Aortic Valve The aortic valve is trileaflet. There is no aortic valve stenosis. There is no aortic valve regurgitation. Pulmonic Valve There is no pulmonic regurgitation. Mitral Valve There is no mitral valve stenosis. There is trace mitral valve regurgitation. Tricuspid Valve There is trace tricuspid valve regurgitation. No pulmonary hypertension, estimated pulmonary arterial systolic pressure is 33 mmHg. Pericardium/Pleural There is trivial pericardial effusion. Inferior Vena Cava Normal inferior vena cava with >50% collapse upon inspiration consistent with normal right atrial pressure, 5 mmHg. Aorta The aortic root size at the sinus of Valsalva is normal. Left Ventricular Outflow Tract Name Value Normal LVOT 2D LVOT Diameter 2.1 cm LVOT Doppler LVOT Peak Gradient 2 mmHg LVOT Mean Gradient 1 mmHg LVOT VTI 16 cm LVOT VTI/AV VTI Ratio 0.6 LVOT Stroke Volume 55 ml LVOT CO 3.8 l/min LVOT CI 2.4 l/min/m2 Mitral Valve Name Value Normal MV Doppler MV Decel [place] 340 cm/s2 MV PHT 45 ms MV Area (PHT) 4.9 cm2 4.0-5.0 MV Regurgitation Doppler MR Peak Gradient 34 mmHg MV Diastolic Function MV E Peak Velocity 53 cm/s MV A Peak Velocity 94 cm/s MV E/A 0.6 MV Decel Time 155 ms MV Annular TDI MV E/e' (Septal) 12.3 <=8.0 MV E/e' (Lateral) 19.2 <=8.0 MV E/e' (Average) 15.7 Tricuspid Valve Name Value Normal TV Regurgitation Doppler TR Peak Velocity 263 cm/s TR Peak Gradient 28 mmHg Estimated PAP/RSVP RA Pressure 5 mmHg <=5 PA Systolic Pressure 33 mmHg <36 RV Systolic Pressure 33 mmHg <36 Aortic Valve Name Value Normal AV Doppler AV Peak Velocity 101 cm/s AV Peak Gradient 4 mmHg AV Mean Gradient 2 mmHg AV VTI 24 cm AV Area (Cont Eq VTI) 2.2 cm2 >=3.0 AV Area (Cont Eq Toribio) 2.5 cm2 AV Regurgitation 2D LVOT Area 3.5 cm2 Ventricles Name Value Normal LV Dimensions 2D/MM IVS Diastolic Thickness (2D) 1.4 cm 0.6-1.0 LVID Diastole (2D) 4.9 cm 3.8-5.2 LVIW Diastolic Thickness (2D) 1.3 cm 0.6-0.9 LVID Systole (2D) 3.3 cm 2.2-3.5 LVOT Diameter 2.1 cm LV Mass (2D Cubed) 269.08 g 67.00-162.00 LV Mass Index (2D Cubed) 168 g/m2 43-95 Relative Wall Thickness (2D) 0.55 LV Fractional Shortening/Ejection Fraction 2D/MM LV Fractional Shortening (2D) 33 % 27-45 LV EF (2D Teicholz) 62 % 54-74 LV Diastolic Volume (4C MOD) 93 ml LV EF (4C MOD) 57 % LV Diastolic Volume (2C MOD) 70 ml LV EF (2C MOD) 68 % LV Diastolic Volume (BP MOD) 81 ml 46-106 LV Diastolic Volume Index (BP MOD) 50 ml/m2 29-61 LV Systolic Volume (BP MOD) 31 ml 14-42 LV Systolic Volume Index (BP MOD) 19 ml/m2 8-24 LV EF (BP MOD) 62 % 54-74 LV Diastolic Length (4C) 6.8 cm LV Systolic Length (4C) 5.3 cm LV Stroke Volume (4C MOD) 53 ml Atria Name Value Normal LA Dimensions LA Volume (4C A-L) 58 ml LA Volume (BP A-L) 54 ml RA Dimensions RA Area (4C) 7.8 cm2 <=18.0 Report Signatures
--- NOTE | 2023-12-14 09:50 | PM.CNCAR ---
Assessment and Plan Assessment and plan (1) Syncope: Qualifiers: Syncope type: unspecified Qualified Code(s): R55 - Syncope and collapse Code(s): R55 - Syncope and collapse Status: Acute Assessment and Plan: Probably due to volume depletion and UTI. Agree with IV hydration. (2) HTN (hypertension): Qualifiers: Hypertension type: primary hypertension Qualified Code(s): I10 - Essential (primary) hypertension Code(s): I10 - Essential (primary) hypertension Status: Chronic Assessment and Plan: Stable. (3) History of cerebellar stroke: Code(s): Z86.73 - Personal history of transient ischemic attack (TIA), and cerebral infarction without residual deficits Status: Acute Assessment and Plan: Unknown etiology, could be from PFO or not. On aspirin and Plavix. (4) Elevated troponin: Code(s): R79.89 - Other specified abnormal findings of blood chemistry Status: Acute Assessment and Plan: Stuttering levels up to 0.146. Doubt ACS as she has no symptoms related to it. Probably due to UTI. Obtain echo. (5) DVT (deep venous thrombosis): Code(s): I82.409 - Acute embolism and thrombosis of unspecified deep veins of unspecified lower extremity Status: Acute Assessment and Plan: Leg DVT per family's history recently. Not on anticoagulation due to recent stroke per family. Need neurology to let us know when OK to start anticoagulation for this. (6) PFO (patent foramen ovale): Code(s): Q21.12 - Patent foramen ovale Status: Acute Assessment and Plan: Per history. (7) CAD (coronary artery disease): Code(s): I25.10 - Atherosclerotic heart disease of [place] coronary artery without angina pectoris Status: Acute Assessment and Plan: On dual antiplatelets as it was recent stent in August 2023 at [facility]. History of Present Illness History of Present Illness Consult date/time: 12/14/23 09:50 Reason For Visit: Acute UTI/Altered Mental Status Narrative: 83 yr old woman admitted for unresponsiveness. She has a history of recent strokes in Oct and Nov 2023 and received care at [facility] and DVT of leg, PFO, CAD with a stent in August 2023, hypertension, DM, dyslipidemia. Her regular scorekeeper is Dr. Epps with [facility]. Daughter is at bedside. Apparently she was at acute rehab for her stroke with right sided weakness and difficulty with speech, and was informed she became unresponsive and brought to ER. They also mentioned that her BP tends to be low while doing rehab and walking. Denies chest pain, sob. Review of Systems Review of Systems: All systems reviewed & are unremarkable except as noted in HPI and below Constitutional: Constitutional: Reports as per HPI, Denies chills and Denies fever(s) Cardiovascular: Cardiovascular: Reports as per HPI and Denies chest pain Respiratory: Respiratory: Reports as per HPI and Denies dyspnea Gastrointestinal: Gastrointestinal: Reports as per HPI and Denies abdominal pain Genitourinary: Genitourinary: Reports as per HPI Musculoskeletal: Musculoskeletal: Reports as per HPI Neurologic: Reports as per HPI and Denies dizziness PMFSH Past Medical History Medical History (Updated 12/14/23 @ 09:59 by Tomasz Schafer DO) Cognitive communication deficit Dysphagia as late effect of stroke HTN (hypertension) Stroke Type 2 diabetes mellitus with hyperglycemia Social History Social History Smoking status: Never smoker Second hand tobacco smoke exposure: Yes Alcohol intake: never Substance use: never Substance use type: does not use Do You Feel Safe in your Home?: Yes Lack of Transportation: No Lack of Food: Never True Current Housing: I Have Housing Concerned About Future Housing: No Difficulty Paying Gas/Electric Bills: No Difficulty Paying for Meds: No Currently Unemployed: No Education: High School Diploma/GED Difficulty w/ Childcare or Family Care: No Living arrangements: with family Gender identity (if verbalized by the patient): Female Sexual Orientation (if Verbalized by the Patient): Straight or Heterosexual Spiritual care concerns: No Meds Home Medications and Allergies Home Medications Medication Instructions Recorded Confirmed Type aspirin 81 mg tablet,delayed 81 mg PO DAILY 11/14/23 12/13/23 History release clopidogrel 75 mg tablet 75 mg PO DAILY 11/14/23 12/13/23 History losartan 50 mg tablet 50 mg PO DAILY 11/14/23 12/13/23 History meclizine 25 mg tablet 25 mg PO BID PRN Dizziness Or 11/14/23 12/13/23 History Vertigo metformin 500 mg tablet 500 mg PO BIDWM 11/14/23 12/13/23 History methocarbamol 750 mg tablet 750 mg PO Q8H PRN muscle spasms 11/14/23 12/13/23 History metoprolol succinate 25 mg 25 mg PO DAILY 11/14/23 12/13/23 History tablet,extended release 24 hr ondansetron 4 mg disintegrating 4 mg PO Q8H PRN Nausea And Vomiting 11/14/23 12/13/23 History tablet acetaminophen 325 mg tablet 650 mg PO Q6H PRN Pain 11/16/23 12/13/23 History amlodipine 5 mg tablet 5 mg PO DAILY 12/13/23 12/13/23 History nystatin 100,000 unit/mL oral 5 ml buccal QID 12/13/23 12/13/23 History suspension rosuvastatin 20 mg tablet 20 mg PO HS 12/13/23 12/13/23 History isosorbide mononitrate 30 mg 30 mg PO DAILY 12/14/23 12/14/23 History tablet,extended release 24 hr Allergies Allergy/AdvReac Type Severity Reaction Status Date / Time No Known Allergies Allergy Verified 12/08/23 18:26 Vital Signs Vital Signs - 24 hr 12/13/23 09:56 12/13/23 09:57 12/13/23 10:11 Temperature Pulse Rate 97 91 Respiratory Rate 15 Blood Pressure 91/67 L Pulse Oximetry 94 94 Oxygen Delivery Nasal Cannula Oxygen Flow Rate 2 12/13/23 10:59 12/13/23 12:12 12/13/23 14:07 Temperature 97.5 F L Pulse Rate 90 87 83 Respiratory Rate 14 17 13 Blood Pressure 109/63 109/59 L 148/77 H Pulse Oximetry 97 96 96 Oxygen Delivery Oxygen Flow Rate 12/13/23 16:00 12/13/23 16:44 12/13/23 17:30 Temperature 97.3 F L Pulse Rate 81 84 Respiratory Rate 17 18 Blood Pressure 154/88 H 150/84 H Pulse Oximetry 98 99 99 Oxygen Delivery Nasal Cannula Oxygen Flow Rate 2 12/13/23 18:00 12/13/23 20:07 12/13/23 20:50 Temperature 97.7 F Pulse Rate 89 87 87 Respiratory Rate 18 18 Blood Pressure 166/95 H Pulse Oximetry 97 97 Oxygen Delivery Nasal Cannula Oxygen Flow Rate 2 12/13/23 20:00 12/13/23 22:00 12/13/23 23:50 Temperature Pulse Rate 83 73 73 Respiratory Rate 18 Blood Pressure Pulse Oximetry 97 Oxygen Delivery Nasal Cannula Oxygen Flow Rate 2 12/14/23 00:00 12/14/23 00:43 12/14/23 02:00 Temperature 97.7 F Pulse Rate 84 87 84 Respiratory Rate 18 Blood Pressure 153/76 H Pulse Oximetry 100 Oxygen Delivery Oxygen Flow Rate 12/14/23 03:45 12/14/23 04:00 12/14/23 04:45 Temperature 97.6 F Pulse Rate 84 80 82 Respiratory Rate 18 18 Blood Pressure 171/95 H Pulse Oximetry 100 95 Oxygen Delivery Nasal Cannula Oxygen Flow Rate 2 12/14/23 06:00 12/14/23 08:11 12/14/23 08:14 Temperature Pulse Rate 73 86 Respiratory Rate Blood Pressure 175/91 H Pulse Oximetry Oxygen Delivery Oxygen Flow Rate 12/14/23 08:00 Temperature Pulse Rate Respiratory Rate Blood Pressure Pulse Oximetry 97 Oxygen Delivery Nasal Cannula Oxygen Flow Rate 2 Exam Const: General: cooperative, healthy appearing and comfortable Resp: Auscultation: clear to auscultation bilaterally, no crackles, no rales, no rhonchi and no wheezes Cardio: Rate: regular rate Rhythm: regular rhythm Heart sounds: no murmurs Peripheral pulses: dorsalis pedis present GI: GI Palp: No abdominal tenderness and Yes Soft to palpation Neuro: General: oriented to person, oriented to place and oriented to time Extrem: Right lower extremity: no edema Left lower extremity: no edema Results Labs and Meds 12/14/23 04:42 12/14/23 04:42 Lab results: Cardiac Enzymes 12/13/23 12/13/23 12/13/23 Range/Units 10:08 10:09 16:05 AST 32 (14-36) U/L Troponin I 0.140 H* 0.097 H* D (0.000-0.034) ng/mL 12/13/23 12/14/23 Range/Units 18:56 04:42 AST 32 (14-36) U/L Troponin I 0.108 H* 0.146 H* (0.000-0.034) ng/mL CBC 12/13/23 12/14/23 Range/Units 10:08 04:42 WBC 11.4 H 8.3 (4.5-10.0) K/mm3 RBC 3.79 L 3.69 L (4.2-5.4) M/mm3 Hgb 11.4 L 11.0 L (12.0-15.0) g/dL Hct 34.9 L 34.5 L (37.0-47.0) % Plt Count 335 270 (150-375) k/mm3 Lymph # (Auto) 1.36 1.68 (0.9-3.2) K/mm3 [place] # (Auto) 0.7 H 0.4 (0.1-0.6) K/mm3 Eos # (Auto) 0.2 0.2 (0-0.3) K/mm3 Baso # (Auto) 0.1 0.1 (0.0-0.1) K/mm3 Comprehensive Metabolic Panel 12/13/23 12/14/23 Range/Units 10:08 04:42 Sodium 134 L 136 L (137-145) mmol/L Potassium 3.0 L 3.2 L (3.4-5.0) mmol/L Chloride 96 L 102 (98-107) mmol/L Carbon Dioxide 31 H 29 (22-30) mmol/L BUN 28 H 19 H (7-17) mg/dL Creatinine 1.20 H 0.90 (0.7-1.0) mg/dL Glucose 208 H 94 (65-110) mg/dL Calcium 8.6 8.2 L (8.4-10.2) mg/dL AST 32 32 (14-36) U/L ALT 16 15 (6-35) U/L Alkaline Phosphatase 70 73 (38-126) U/L Total Protein 6.0 L 6.0 L (6.3-8.2) g/dL Albumin 3.2 L 3.0 L (3.5-5.1) g/dL Intake and Output 12/13/23 12/14/23 12/14/23 23:59 07:59 15:59 Intake Total 1150 947.9 Output Total 300 1300 750 Balance -300 -150 197.9 Intake: IV 1000 947.9 Sodium Chloride 0.9% IV 1,000 1000 947.9 ml @ 125 mls/hr IV CONT .Q8H [facility] Rx#:[id number] Oral 150 0 Output: Urine 300 750 Catheter Urine 1300 Urethral Catheter 1300 Patient Weight 12/14/23 23:59 Weight 59.4 kg
[2023-12-14 11:58] LABS: Glucose Point of Care 128 mg/dl (65-105)
[2023-12-14 11:58] LABS: Glucose Point of Care 116 mg/dl (65-105)
[2023-12-14] MEDS: POTASSIUM CHLORIDE 20 MEQ PACKET (FOR LIQUID) 40 MEQ PO (12:03)
[2023-12-14 12:06] LABS: Magnesium 1.6 mg/dL (1.6-2.3)
[2023-12-14 18:09] LABS: Glucose Point of Care 121 mg/dl (65-105)
[2023-12-14] MEDS: ROSUVASTATIN 20 MG TABLET PO (20:02)
[2023-12-14 20:22] LABS: Glucose Point of Care 128 mg/dl (65-105)
[2023-12-15] VITALS (10 sets, daily range): BP systolic 140–180; BP diastolic 75–95; PULSE 68–90; RESP 16–22; TEMP 36.4–36.7; O2SAT 96–100
[2023-12-15] MEDS: SODIUM CHLORIDE 0.9% IV 1,000 ML 125 ML IV CONT (02:39)
[2023-12-15 08:27] LABS: Glucose Point of Care 95 mg/dl (65-105)
--- NOTE | 2023-12-15 08:36 | PCOTNOTE ---
Attempted OT evaluation, per RN hold off till ultrasound for reported DVT. Will follow.
--- NOTE | 2023-12-15 08:40 | P.PNIM_ITS ---
Progress Note: A&P Assessment and Plan (1) Altered mental status: Qualifiers: Altered mental status type: somnolence Qualified Code(s): R40.0 - Somnolence Code(s): R41.82 - Altered mental status, unspecified Status: Acute (2) SIRS (systemic inflammatory response syndrome): Code(s): R65.10 - Systemic inflammatory response syndrome (SIRS) of non-infectious origin without acute organ dysfunction Status: Acute (3) HTN (hypertension): Qualifiers: Hypertension type: primary hypertension Qualified Code(s): I10 - Essential (primary) hypertension Code(s): I10 - Essential (primary) hypertension Status: Chronic (4) UTI (urinary tract infection): Qualifiers: Hematuria presence: without hematuria Urinary tract infection type: acute cystitis Qualified Code(s): N30.00 - Acute cystitis without hematuria Code(s): N39.0 - Urinary tract infection, site not specified Status: Acute (5) Type 2 diabetes mellitus: Qualifiers: Diabetes mellitus complication status: without complication 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 atrophy and chronic white matter changes, see report. Likely secondary to UTI, dehydration Neuro check Mental status improving, still not oriented x3 KAUSHAL Elevated BUN creatinine above baseline, upon arrival 28 over 1.2, baseline creatinine 0.8 December 09, 2023 Likely secondary to dehydration and UTI Received antibiotics on normal saline 125 mL/hour Creatinine is trending down dcrease NS to 75 ml/h Hypokalemia Hypokalemia upon arrival, Replete with potassium chloride 40 mEq daily p.o. Follow-up BMP, magnesium level Elevated troponin EKG, initial: Sinus rhythm, rate 90, left axis deviation, possible anterior UT probably old, moderate T-wave abnormality consider lateral ischemia. No previous available for comparison. - CXR: Mild atelectasis at left lung base and cardiomegaly. - CT chest/abdomen/pelvis with con: small sliding hiatal hernia. - Troponin: Positive serial troponin no chest pain or shortness of breath - ASA 324 ordered and SL nitro PRN - suspect alteration is multifactorial secondary to hypoxia, UTI, and hypotension. - telemetry monitoring Follow-up echocardiogram, 1. Complete two-dimensional, color flow and Doppler transthoracic echocardiogram is performed. 2. Left ventricular chamber dimension is normal. 3. Left ventricular systolic function is normal, estimated at 60-65%. 4. There is moderate concentric increased left ventricular wall thickness. 5. The left ventricular diastolic function is grade I diastolic dysfunction. 6. E/e' 14 is mildly elevated. 7. Left atrial chamber dimension is moderately enlarged. 8. There is trace mitral valve regurgitation. 9. There is trace tricuspid valve regurgitation. 10. No pulmonary hypertension, estimated pulmonary arterial systolic pressure is 33 mmHg. 11. There is trivial pericardial effusion. consulted Cardiology UTI (urinary tract infection): Qualifiers: Hematuria presence: without hematuria Urinary tract infection type: acute cystitis Qualified Code(s): N30.00 - Acute cystitis without hematuria Code(s): N39.0 - Urinary tract infection, site not specified Status: Acute Assessment and Plan: - UA: Cloudy, 2+ protein, trace ketones, 1+ blood, 2+ leuk esterase, 3-5 RBC, 2 1-50 WBC, no epithelial cells, 4+ bacteria - UC pending - no previous micro available for review - started on Ceftriaxone on 12/12 - rene exchanged on 12/12, originally placed post-CVA on 11/30 Type 2 diabetes mellitus: Qualifiers: Diabetes mellitus complication status: without complication 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 Qualified Code(s): E11.9 - Type 2 diabetes mellitus without complications Code(s): E11.9 - Type 2 diabetes mellitus without complications Status: Chronic Assessment and Plan: - hypoglycemia protocol - POC blood glucose ACHS - home medication: Hold metformin - correct regimen ordered - low dose TIDWM, based off BMI - A1C ordered HTN (hypertension): Qualifiers: Hypertension type: primary hypertension Qualified Code(s): I10 - Essential (primary) hypertension Code(s): I10 - Essential (primary) hypertension Status: Chronic Assessment and Plan: Uncontrolled hypertension, Increased globulin 10 mg daily p.o., continue metoprolol 25 mg daily p.o., start losartan 50 mg daily p.o. Start hydralazine p.r.n. IV with parameters History DVT Anticoagulation on hold due to recent stroke per neurologist Follow-up venous Doppler Subjective Date/time seen: 12/15/23 08:40 Interval history: I saw and examined patient in presents of the patient's nurse. Patient mental status is improving, S no obvious distress, able to answer questions, but unable to provide reliable history. Patient denies abdomen pain, nausea vomiting diarrhea. Labs reviewed, patient is afebrile, blood pressure stable, Exam Narrative: GENERAL: Pleasant, in no acute distress. Well-nourished. - EYES: EOMI. Anicteric. - HENT: Dry mucous membranes. - LUNGS: Clear to auscultation bilateral ly, no wheezing, rhonchi, or rales. - CARDIOVASCULAR: Regular rate and rhyth m. No murmur. No JVD. - ABDOMEN: Soft, non-tender and non-dist ended. No palpable masses. - EXTREMITIES: No edema. Peripheral puls es 2+. Non-tender. - NEUROLOGIC: No focal neurological defi cits. CN II-XII grossly intact. Focal weakness, - PSYCHIATRIC: Awake, Alert and not orie nted x 3. Appropriate mood and affect. - SKIN: No rashes or lesions. Warm. - LYMPH: No cervical lymphadenopathy. Objective Data Vital Signs Vital Signs: Vital Signs - 24 hr 12/14/23 09:57 12/14/23 10:00 12/14/23 12:00 Temperature 97.6 F Pulse Rate 68 77 85 Respiratory Rate 14 Blood Pressure 145/81 H Pulse Oximetry 98 Oxygen Delivery 12/14/23 12:38 12/14/23 15:29 12/14/23 16:00 Temperature 98.1 F 97.9 F Pulse Rate 85 76 73 Respiratory Rate 18 Blood Pressure 124/70 140/90 Pulse Oximetry 96 95 Oxygen Delivery 12/14/23 20:00 12/14/23 20:00 12/15/23 00:00 Temperature 98.0 F Pulse Rate 73 Respiratory Rate 20 Blood Pressure 170/70 H 179/95 H Pulse Oximetry 99 Oxygen Delivery Room Air 12/14/23 20:00 12/15/23 00:00 12/15/23 04:00 Temperature Pulse Rate 83 68 82 Respiratory Rate Blood Pressure Pulse Oximetry Oxygen Delivery 12/15/23 08:00 Temperature 97.5 F L Pulse Rate 72 Respiratory Rate 22 H Blood Pressure 180/92 H Pulse Oximetry 100 Oxygen Delivery Intake/Output Intake/Output: Intake & Output 12/12/23 12/13/23 12/14/23 12/15/23 23:59 23:59 23:59 23:59 Intake Total 1120 3217.9 1150 Output Total 300 2475 950 Balance 820 742.9 200 Meds/Results Medications: Active Medications Generic Name Dose Route Start Last Admin Trade Name Freq PRN Reason Stop Dose Admin Acetaminophen 650 mg 12/13/23 21:22 Acetaminophen 325 Mg Tablet PO Q6H PRN PAIN RATED 1-3 Amlodipine Besylate 10 mg 12/15/23 09:00 Amlodipine Besylate 10 Mg Tablet PO DAILY SARA Aspirin 81 mg 12/14/23 09:00 12/14/23 08:11 Aspirin 81 Mg Enteric Tablet PO 81 mg DAILY SARA Administration Clopidogrel Bisulfate 75 mg 12/14/23 09:00 12/14/23 08:10 Clopidogrel Bisulfate 75 Mg Tablet PO 75 mg DAILY SARA Administration Dextrose 12.5 gm 12/13/23 15:48 Dextrose 50% 25 Gm/50 Ml Syringe IV PUSH PRN PRN Hypoglycemia Protocol Glucagon 1 mg 12/13/23 15:48 Glucagon For Inj 1 Mg Vial IM PRN PRN Hypoglycemia Protocol Glucose 15 gm 12/13/23 15:48 Glucose Oral Gel 15 Gm Of Glucse In 37.5 Gm Tube PO PRN PRN Hypoglycemia Protocol Sodium Chloride 1,000 mls @ 125 mls/hr 12/13/23 14:45 12/15/23 02:39 Normal Saline Iv IV CONT 125 mls/hr .Q8H SARA Administration Ceftriaxone Sodium 1 gm in 50 mls @ 100 mls/hr 12/14/23 11:00 12/14/23 12:04 Rocephin 1 Gm/Ns 50 Ml IVPB 100 mls/hr Q24H SARA Administration Dextrose 1,000 mls @ 100 mls/hr 12/13/23 15:48 Dextrose 5% 1,000 Ml IVPB PRN PRN Hypoglycemia Protocol Insulin Aspart 2 - 5 units 12/13/23 17:00 12/14/23 17:19 Insulin Aspart (*Bkc) 100 Units/Ml SUB-Q Not Given TIDWM [facility] Protocol Isosorbide Mononitrate 30 mg 12/14/23 09:00 12/14/23 08:12 Isosorbide Mononitrate 30 Mg Tab.Er.24h PO 30 mg DAILY SARA Administration Meclizine HCl 25 mg 12/13/23 21:22 Meclizine Hcl 25 Mg Tablet PO BID PRN Dizziness Or Vertigo Methocarbamol 750 mg 12/13/23 21:22 Methocarbamol 750 Mg Tablet PO Q8H PRN muscle spasms Metoprolol Succinate 25 mg 12/14/23 09:00 12/14/23 08:11 Metoprolol Succinate Ext Rel 25 Mg Tabcr PO 25 mg DAILY SARA Administration Nystatin 5 ml 12/13/23 21:35 12/14/23 20:02 Nystatin 100,000 Units/Ml Susp 5 Ml Oral.Susp BY MOUTH 5 ml QID SARA Administration Ondansetron HCl 4 mg 12/13/23 21:22 Ondansetron Hcl Odt 4 Mg Tablet PO Q8H PRN Nausea And Vomiting Perflutren Lipid Microsphere 0 ml 12/14/23 08:55 Perflutren Lipid Microspheres 1.5 Ml Vial Diluted To 10 Ml Total Volume IV PUSH 12/17/23 08:55 ONCE PRN adequate visualization Protocol Potassium Chloride 40 meq 12/15/23 09:00 Potassium Chloride 20 Meq Packet (For Liquid) PO DAILY [facility] Rosuvastatin Calcium 20 mg 12/13/23 21:35 12/14/23 20:02 Rosuvastatin 20 Mg Tablet PO 20 mg HS SARA Administration Radiology Results: ITS Impressions Head CT 12/13/23 10:38 Impression: No intracranial hemorrhage, mass, or acute infarct. Atrophy and chronic white matter changes, as above. Chest X-Ray 12/13/23 10:39 IMPRESSION: 1. Mild atelectasis at left lung base. 2. Cardiomegaly. Chest/Abdomen/Pelvis CT 12/13/23 14:18 IMPRESSION: 1. Small sliding hiatal hernia. Labs Labs: Laboratory Results - last 24 hr 12/14/23 12/14/23 12/14/23 11:30 11:34 11:55 POC Capillary Glucose 128 H 116 H Magnesium 1.6 12/14/23 12/14/23 12/15/23 15:27 19:55 08:22 POC Capillary Glucose 121 H 128 H 95 Magnesium
[2023-12-15 09:09] LABS: Basophils Absolute Auto 0.1 K/mm3 (0.0-0.1); Basophils Percent Auto 0.9 % (0.2-1.2); Eosinophils Absolute Auto 0.2 K/mm3 (0-0.3); Eosinophils Percent Auto 2.4 % (0-4.4); Hematocrit 36.1 % (37.0-47.0); Hemoglobin 11.3 g/dL (12.0-15.0); Immature Granulocyte Absolute 0.03 K/mm3 (0.00-0.031); Immature Granulocyte Percent A 0.4 % (0-0.5); Lymphocytes Absolute Auto 1.69 K/mm3 (0.9-3.2); Lymphocytes Percent Auto 21.4 % (18.3-44.2); Mean Corpuscular HGB Conc 31.3 g/dl (32-36); Mean Corpuscular Hemoglobin 29.6 pg (26-34); Mean Corpuscular Volume 94.5 fl (80-100); Mean Platelet Volume 10.5 fl (7.4-10.4); Monocytes Absolute Auto 0.4 K/mm3 (0.1-0.6); Monocytes Percent Auto 5.2 % (2.6-8.5); Neutrophils Absolute Auto 5.5 K/mm3 (1.3-6.7); Neutrophils Percent Auto 69.7 % (45.5-73.1); Platelet Count Result 272 k/mm3 (150-375); Red Blood Count 3.82 M/mm3 (4.2-5.4); Red Cell Distribution Width 12.8 % (11.5-14.5); White Blood Count 7.9 K/mm3 (4.5-10.0)
--- NOTE | 2023-12-15 09:15 | PCPTNOTE ---
HOLD PT eval per RN--? DVT.
--- NOTE | 2023-12-15 09:16 | PM.PNCARD ---
Progress Note: A&P Assessment and Plan (1) Syncope: Qualifiers: Syncope type: unspecified Qualified Code(s): R55 - Syncope and collapse Code(s): R55 - Syncope and collapse Status: Acute Assessment and Plan: Probably due to volume depletion and UTI. Agree with IV hydration. (2) HTN (hypertension): Qualifiers: Hypertension type: primary hypertension Qualified Code(s): I10 - Essential (primary) hypertension Code(s): I10 - Essential (primary) hypertension Status: Chronic Assessment and Plan: Mildly high. Increase Amlodipine 10 mg daily. (3) History of cerebellar stroke: Code(s): Z86.73 - Personal history of transient ischemic attack (TIA), and cerebral infarction without residual deficits Status: Acute Assessment and Plan: Unknown etiology, could be from PFO or not. On aspirin and Plavix. (4) Elevated troponin: Code(s): R79.89 - Other specified abnormal findings of blood chemistry Status: Acute Assessment and Plan: Troponin peaked at 0.146. Doubt ACS as she has no symptoms related to it. Probably due to UTI. 12/14/23 Echo with EF 60-65%, grade I diastolic dysfunction (E/e' 14). No further cardiac workup is needed. Will sign off, please call with any questions. She is to keep her appointment with her regular petroleum laboratory technician, Dr. Epps with [facility]. (5) DVT (deep venous thrombosis): Code(s): I82.409 - Acute embolism and thrombosis of unspecified deep veins of unspecified lower extremity Status: Acute Assessment and Plan: Leg DVT per family's history recently. Not on anticoagulation due to recent stroke per family. Need neurology to let us know when OK to start anticoagulation for this. (6) PFO (patent foramen ovale): Code(s): Q21.12 - Patent foramen ovale Status: Acute Assessment and Plan: Per history. (7) CAD (coronary artery disease): Code(s): I25.10 - Atherosclerotic heart disease of [place] coronary artery without angina pectoris Status: Acute Assessment and Plan: On dual antiplatelets as it was recent stent in August 2023 at [facility] [place]. Subjective Date/time seen: 12/15/23 09:16 Interval history: Denies chest pain or sob. Exam Const: General: cooperative, healthy appearing and comfortable Orientation/consciousness: oriented to person, oriented to place and oriented to time Resp: Auscultation: clear to auscultation bilaterally, no crackles, no rales, no rhonchi and no wheezes Cardio: Rate: regular rate Rhythm: regular rhythm Heart sounds: no murmurs Peripheral pulses: dorsalis pedis present Neuro: General: oriented to person, oriented to place and oriented to time Extrem: Right lower extremity: no edema Left lower extremity: no edema Objective Data Vital Signs Vital Signs: Vital Signs - 24 hr 12/14/23 09:57 12/14/23 10:00 12/14/23 12:00 Temperature 97.6 F Pulse Rate 68 77 85 Respiratory Rate 14 Blood Pressure 145/81 H Pulse Oximetry 98 Oxygen Delivery Fraction of Inspired Oxygen 12/14/23 12:38 12/14/23 15:29 12/14/23 16:00 Temperature 98.1 F 97.9 F Pulse Rate 85 76 73 Respiratory Rate 18 Blood Pressure 124/70 140/90 Pulse Oximetry 96 95 Oxygen Delivery Fraction of Inspired Oxygen 12/14/23 20:00 12/14/23 20:00 12/15/23 00:00 Temperature 98.0 F Pulse Rate 73 Respiratory Rate 20 Blood Pressure 170/70 H 179/95 H Pulse Oximetry 99 Oxygen Delivery Room Air Fraction of Inspired Oxygen 12/14/23 20:00 12/15/23 00:00 12/15/23 04:00 Temperature Pulse Rate 83 68 82 Respiratory Rate Blood Pressure Pulse Oximetry Oxygen Delivery Fraction of Inspired Oxygen 12/15/23 08:00 12/15/23 08:57 Temperature 97.5 F L Pulse Rate 72 Respiratory Rate 22 H Blood Pressure 180/92 H Pulse Oximetry 100 99 Oxygen Delivery Room Air Fraction of Inspired Oxygen 21 Intake/Output Intake/Output: Intake & Output 12/12/23 12/13/23 12/14/23 12/15/23 23:59 23:59 23:59 23:59 Intake Total 1120 3217.9 1270 Output Total 300 2475 950 Balance 820 742.9 320 Meds/Results Medications: Active Medications Generic Name Dose Route Start Last Admin Trade Name Freq PRN Reason Stop Dose Admin Acetaminophen 650 mg 12/13/23 21:22 Acetaminophen 325 Mg Tablet PO Q6H PRN PAIN RATED 1-3 Amlodipine Besylate 10 mg 12/15/23 09:00 Amlodipine Besylate 10 Mg Tablet PO DAILY SARA Aspirin 81 mg 12/14/23 09:00 12/14/23 08:11 Aspirin 81 Mg Enteric Tablet PO 81 mg DAILY SARA Administration Clopidogrel Bisulfate 75 mg 12/14/23 09:00 12/14/23 08:10 Clopidogrel Bisulfate 75 Mg Tablet PO 75 mg DAILY SARA Administration Dextrose 12.5 gm 12/13/23 15:48 Dextrose 50% 25 Gm/50 Ml Syringe IV PUSH PRN PRN Hypoglycemia Protocol Glucagon 1 mg 12/13/23 15:48 Glucagon For Inj 1 Mg Vial IM PRN PRN Hypoglycemia Protocol Glucose 15 gm 12/13/23 15:48 Glucose Oral Gel 15 Gm Of Glucse In 37.5 Gm Tube PO PRN PRN Hypoglycemia Protocol Hydralazine HCl 10 mg 12/15/23 08:43 Hydralazine Hcl 20 Mg/Ml Vial IV PUSH Q6H PRN Blood Pressure - High Sodium Chloride 1,000 mls @ 75 mls/hr 12/13/23 14:45 12/15/23 02:39 Normal Saline Iv IV CONT 125 mls/hr .[id number] SARA Administration Ceftriaxone Sodium 1 gm in 50 mls @ 100 mls/hr 12/14/23 11:00 12/14/23 12:04 Rocephin 1 Gm/Ns 50 Ml IVPB 100 mls/hr Q24H SARA Administration Dextrose 1,000 mls @ 100 mls/hr 12/13/23 15:48 Dextrose 5% 1,000 Ml IVPB PRN PRN Hypoglycemia Protocol Insulin Aspart 2 - 5 units 12/13/23 17:00 12/14/23 17:19 Insulin Aspart (*Bkc) 100 Units/Ml SUB-Q Not Given TIDWM [facility] Protocol Isosorbide Mononitrate 30 mg 12/14/23 09:00 12/14/23 08:12 Isosorbide Mononitrate 30 Mg Tab.Er.24h PO 30 mg DAILY SARA Administration Losartan Potassium 50 mg 12/15/23 09:00 Losartan Potassium 50 Mg Tablet PO DAILY SARA Meclizine HCl 25 mg 12/13/23 21:22 Meclizine Hcl 25 Mg Tablet PO BID PRN Dizziness Or Vertigo Methocarbamol 750 mg 12/13/23 21:22 Methocarbamol 750 Mg Tablet PO Q8H PRN muscle spasms Metoprolol Succinate 25 mg 12/14/23 09:00 12/14/23 08:11 Metoprolol Succinate Ext Rel 25 Mg Tabcr PO 25 mg DAILY SARA Administration Nystatin 5 ml 12/13/23 21:35 12/14/23 20:02 Nystatin 100,000 Units/Ml Susp 5 Ml Oral.Susp BY MOUTH 5 ml QID SARA Administration Ondansetron HCl 4 mg 12/13/23 21:22 Ondansetron Hcl Odt 4 Mg Tablet PO Q8H PRN Nausea And Vomiting Perflutren Lipid Microsphere 0 ml 12/14/23 08:55 Perflutren Lipid Microspheres 1.5 Ml Vial Diluted To 10 Ml Total Volume IV PUSH 12/17/23 08:55 ONCE PRN adequate visualization Protocol Potassium Chloride 40 meq 12/15/23 09:00 Potassium Chloride 20 Meq Packet (For Liquid) PO DAILY SARA Rosuvastatin Calcium 20 mg 12/13/23 21:35 12/14/23 20:02 Rosuvastatin 20 Mg Tablet PO 20 mg HS SARA Administration Radiology Results: ITS Impressions Head CT 12/13/23 10:38 Impression: No intracranial hemorrhage, mass, or acute infarct. Atrophy and chronic white matter changes, as above. Chest X-Ray 12/13/23 10:39 IMPRESSION: 1. Mild atelectasis at left lung base. 2. Cardiomegaly. Chest/Abdomen/Pelvis CT 12/13/23 14:18 IMPRESSION: 1. Small sliding hiatal hernia. Labs Labs: Laboratory Results - last 24 hr 12/14/23 12/14/23 12/14/23 11:30 11:34 11:55 WBC RBC Hgb Hct MCV MCH MCHC RDW Plt Count MPV Immature Gran % (Auto) Neut % (Auto) Lymph % (Auto) [place] % (Auto) Eos % (Auto) Baso % (Auto) Lymph # (Auto) [place] # (Auto) Eos # (Auto) Baso # (Auto) Abs Immat Gran (auto) Absolute Neuts (auto) Absolute Nucleated RBC Nucleated RBC % Sodium Potassium Chloride Carbon Dioxide Anion Gap BUN Creatinine Estim Creat Clear Calc Estimated GFR Glucose POC Capillary Glucose 128 H 116 H Calcium Magnesium 1.6 12/14/23 12/14/23 12/15/23 15:27 19:55 08:14 WBC 7.9 RBC 3.82 L Hgb 11.3 L Hct 36.1 L MCV 94.5 MCH 29.6 MCHC 31.3 L RDW 12.8 Plt Count 272 MPV 10.5 H Immature Gran % (Auto) 0.4 Neut % (Auto) 69.7 Lymph % (Auto) 21.4 [place] % (Auto) 5.2 Eos % (Auto) 2.4 Baso % (Auto) 0.9 Lymph # (Auto) 1.69 [place] # (Auto) 0.4 Eos # (Auto) 0.2 Baso # (Auto) 0.1 Abs Immat Gran (auto) 0.03 Absolute Neuts (auto) 5.5 Absolute Nucleated RBC 0.000 Nucleated RBC % 0.0 Sodium Cancelled Potassium Cancelled Chloride Cancelled Carbon Dioxide Cancelled Anion Gap Cancelled BUN Cancelled Creatinine Cancelled Estim Creat Clear Calc Cancelled Estimated GFR Cancelled Glucose Cancelled POC Capillary Glucose 121 H 128 H Calcium Cancelled Magnesium Cancelled 12/15/23 08:22 WBC RBC Hgb Hct MCV MCH MCHC RDW Plt Count MPV Immature Gran % (Auto) Neut % (Auto) Lymph % (Auto) [place] % (Auto) Eos % (Auto) Baso % (Auto) Lymph # (Auto) [place] # (Auto) Eos # (Auto) Baso # (Auto) Abs Immat Gran (auto) Absolute Neuts (auto) Absolute Nucleated RBC Nucleated RBC % Sodium Potassium Chloride Carbon Dioxide Anion Gap BUN Creatinine Estim Creat Clear Calc Estimated GFR Glucose POC Capillary Glucose 95 Calcium Magnesium
[2023-12-15 09:17] LABS: Troponin I 0.072 ng/mL (0.000-0.034)
[2023-12-15] MEDS: POTASSIUM CHLORIDE 20 MEQ PACKET (FOR LIQUID) 40 MEQ PO (09:26)
[2023-12-15] MEDS: METOPROLOL SUCCINATE EXT REL 25 MG TABCR PO (09:26)
[2023-12-15] MEDS: NYSTATIN 100,000 UNITS/ML SUSP 5 ML ORAL.SUSP BY MOUTH ×3 (09:26→20:42)
[2023-12-15] MEDS: ISOSORBIDE MONONITRATE 30 MG TAB.ER.24H PO (09:27)
[2023-12-15] MEDS: ASPIRIN 81 MG ENTERIC TABLET PO (09:27)
[2023-12-15] MEDS: CLOPIDOGREL BISULFATE 75 MG TABLET PO (09:27)
[2023-12-15] MEDS: amLODIPine BESYLATE 10 MG TABLET PO (09:27)
[2023-12-15] MEDS: LOSARTAN POTASSIUM 50 MG TABLET PO (09:29)
[2023-12-15 11:36] LABS: Magnesium 1.3 mg/dL (1.6-2.3)
[2023-12-15] MEDS: SODIUM CHLORIDE 0.9% IV 1,000 ML 75 ML IV CONT (11:49)
[2023-12-15 12:02] LABS: Glucose Point of Care 174 mg/dl (65-105)
--- NOTE | 2023-12-15 13:23 | PC.NURSE ---
Addendum entered by Michelle Sinha RN 12/15/23 13:27: Patient's Daughter Brooke notified of room change. Original Note: This patient, Alba Thayer, was transferred to [facility] on 12/15/23 at 1320. Personal belongings sent with patient. Report given to Zunilda BUCK. Appropriate documentation sent with patient.
--- NOTE | 2023-12-15 13:54 | PC.NURSE ---
This patient, Alba Thayer, was received from [id number]] on 12/15/23 at 1320. Patient/family oriented to unit policies and routines
[2023-12-15 17:13] LABS: Glucose Point of Care 133 mg/dl (65-105)
[2023-12-15 19:47] LABS: Glucose Point of Care 130 mg/dl (65-105)
[2023-12-15] MEDS: ROSUVASTATIN 20 MG TABLET PO (20:42)
[2023-12-16] VITALS (9 sets, daily range): BP systolic 119–173; BP diastolic 65–86; PULSE 60–97; RESP 16–18; TEMP 36.4–36.5; O2SAT 95–98
[2023-12-16] MEDS: SODIUM CHLORIDE 0.9% IV 1,000 ML 75 ML IV CONT ×2 (01:12→14:35)
--- NOTE | 2023-12-16 01:28 | PC.NURSE ---
Daylight Savings Time For Daylight Savings Time Ending in the Fall - Clocks are moved back. For Daylight Savings Time Beginning in the Spring - Clocks are moved ahead. For [facility], the time of change occurs at 0200 hrs. Time is taken from the process server. This entry on the patient's chart recognizes the change in time reflected during documentation. Example: 2 entries for vital signs may be charted for 0200 hrs.
[2023-12-16 07:27] LABS: Basophils Absolute Auto 0.1 K/mm3 (0.0-0.1); Basophils Percent Auto 0.9 % (0.2-1.2); Eosinophils Absolute Auto 0.1 K/mm3 (0-0.3); Eosinophils Percent Auto 1.9 % (0-4.4); Hematocrit 35.5 % (37.0-47.0); Hemoglobin 11.6 g/dL (12.0-15.0); Immature Granulocyte Absolute 0.03 K/mm3 (0.00-0.031); Immature Granulocyte Percent A 0.4 % (0-0.5); Lymphocytes Percent Auto 17.9 % (18.3-44.2); Mean Corpuscular HGB Conc 32.7 g/dl (32-36); Mean Corpuscular Hemoglobin 30.1 pg (26-34); Mean Platelet Volume 10.6 fl (7.4-10.4); Monocytes Absolute Auto 0.4 K/mm3 (0.1-0.6); Neutrophils Absolute Auto 4.9 K/mm3 (1.3-6.7); Neutrophils Percent Auto 72.9 % (45.5-73.1); Platelet Count Result 251 k/mm3 (150-375); Red Blood Count 3.86 M/mm3 (4.2-5.4); Red Cell Distribution Width 12.5 % (11.5-14.5); White Blood Count 6.7 K/mm3 (4.5-10.0)
--- NOTE | 2023-12-16 07:29 | P.PNCA_ITS ---
Progress Note: A&P Assessment and Plan (1) Syncope: Qualifiers: Syncope type: unspecified Qualified Code(s): R55 - Syncope and collapse Code(s): R55 - Syncope and collapse Status: Acute Assessment and Plan: Probably due to volume depletion and UTI. Agree with IV hydration. (2) HTN (hypertension): Qualifiers: Hypertension type: primary hypertension Qualified Code(s): I10 - Essential (primary) hypertension Code(s): I10 - Essential (primary) hypertension Status: Chronic Assessment and Plan: Mildly high. Increase Losartan 100 mg daily and Metoprolol Succinate 50 mg daily. (3) History of cerebellar stroke: Code(s): Z86.73 - Personal history of transient ischemic attack (TIA), and cerebral infarction without residual deficits Status: Acute Assessment and Plan: Unknown etiology, could be from PFO or not. On aspirin and Plavix. (4) Elevated troponin: Code(s): R79.89 - Other specified abnormal findings of blood chemistry Status: Acute Assessment and Plan: Troponin peaked at 0.146. Doubt ACS as she has no symptoms related to it. Probably due to UTI. 12/14/23 Echo with EF 60-65%, grade I diastolic dysfunction (E/e' 14). No further cardiac workup is needed. Will sign off, please call with any questions. She is to keep her appointment with her regular watch assembly inspector, Dr. Epps with [facility]. (5) DVT (deep venous thrombosis): Code(s): I82.409 - Acute embolism and thrombosis of unspecified deep veins of unspecified lower extremity Status: Acute Assessment and Plan: Leg DVT per family's history recently. Not on anticoagulation due to recent stroke per family. Need neurology to let us know when OK to start anticoagulation for this. (6) PFO (patent foramen ovale): Code(s): Q21.12 - Patent foramen ovale Status: Acute Assessment and Plan: Per history. (7) CAD (coronary artery disease): Code(s): I25.10 - Atherosclerotic heart disease of [place] coronary artery without angina pectoris Status: Acute Assessment and Plan: On dual antiplatelets as it was recent stent in August 2023 at [facility]. Subjective Date/time seen: 12/16/23 07:29 Interval history: Denies chest pain or sob. Exam Const: General: cooperative, healthy appearing and comfortable Orientation/consciousness: oriented to person, oriented to place and oriented to time Resp: Auscultation: clear to auscultation bilaterally, no crackles, no rales, no rhonchi and no wheezes Cardio: Rate: regular rate Rhythm: regular rhythm Heart sounds: no murmurs Peripheral pulses: dorsalis pedis present Neuro: General: oriented to person, oriented to place and oriented to time Extrem: Right lower extremity: no edema Left lower extremity: no edema Objective Data Vital Signs Vital Signs: Vital Signs - 24 hr 12/15/23 08:57 12/15/23 09:26 12/15/23 12:00 Temperature Pulse Rate 83 75 Respiratory Rate Blood Pressure Pulse Oximetry 99 Oxygen Delivery Room Air Fraction of Inspired Oxygen 12/15/23 12:18 12/15/23 16:00 12/15/23 20:00 Temperature 98 F Pulse Rate 90 71 79 Respiratory Rate 16 Blood Pressure 142/95 H Pulse Oximetry 97 Oxygen Delivery Fraction of Inspired Oxygen 12/15/23 21:45 12/16/23 00:00 12/15/23 20:00 Temperature 98.1 F Pulse Rate 81 81 81 Respiratory Rate 16 16 Blood Pressure 140/75 Pulse Oximetry 96 96 Oxygen Delivery Room Air Fraction of Inspired Oxygen 12/16/23 06:00 12/16/23 04:00 Temperature 97.7 F Pulse Rate 80 97 Respiratory Rate 16 Blood Pressure 173/86 H Pulse Oximetry 98 Oxygen Delivery Fraction of Inspired Oxygen Intake/Output Intake/Output: Intake & Output 12/13/23 12/14/23 12/15/23 12/16/23 23:59 23:59 23:59 22:59 Intake Total 1120 3267.9 2320.0 1000 Output Total 300 2475 3675 1100 Balance 820 792.9 -1355.0 -100 Meds/Results Medications: Active Medications Generic Name Dose Route Start Last Admin Trade Name Freq PRN Reason Stop Dose Admin Acetaminophen 650 mg 12/13/23 21:22 Acetaminophen 325 Mg Tablet PO Q6H PRN PAIN RATED 1-3 Amlodipine Besylate 10 mg 12/15/23 09:00 12/15/23 09:27 Amlodipine Besylate 10 Mg Tablet PO 10 mg DAILY SARA Administration Aspirin 81 mg 12/14/23 09:00 12/15/23 09:27 Aspirin 81 Mg Enteric Tablet PO 81 mg DAILY SARA Administration Clopidogrel Bisulfate 75 mg 12/14/23 09:00 12/15/23 09:27 Clopidogrel Bisulfate 75 Mg Tablet PO 75 mg DAILY SARA Administration Dextrose 12.5 gm 12/13/23 15:48 Dextrose 50% 25 Gm/50 Ml Syringe IV PUSH PRN PRN Hypoglycemia Protocol Glucagon 1 mg 12/13/23 15:48 Glucagon For Inj 1 Mg Vial IM PRN PRN Hypoglycemia Protocol Glucose 15 gm 12/13/23 15:48 Glucose Oral Gel 15 Gm Of Glucse In 37.5 Gm Tube PO PRN PRN Hypoglycemia Protocol Hydralazine HCl 10 mg 12/15/23 08:43 Hydralazine Hcl 20 Mg/Ml Vial IV PUSH Q6H PRN Blood Pressure - High Sodium Chloride 1,000 mls @ 75 mls/hr 12/13/23 14:45 12/16/23 01:12 CDT Normal Saline Iv IV CONT 75 mls/hr .[id number] SARA Administration Ceftriaxone Sodium 1 gm in 50 mls @ 100 mls/hr 12/14/23 11:00 12/15/23 12:35 Rocephin 1 Gm/Ns 50 Ml IVPB Infused Q24H SARA Infusion Dextrose 1,000 mls @ 100 mls/hr 12/13/23 15:48 Dextrose 5% 1,000 Ml IVPB PRN PRN Hypoglycemia Protocol Insulin Aspart 2 - 5 units 12/13/23 17:00 12/15/23 16:24 Insulin Aspart (*Bkc) 100 Units/Ml SUB-Q Not Given TIDWM [facility] Protocol Isosorbide Mononitrate 30 mg 12/14/23 09:00 12/15/23 09:27 Isosorbide Mononitrate 30 Mg Tab.Er.24h PO 30 mg DAILY SARA Administration Losartan Potassium 100 mg 12/16/23 09:00 Losartan Potassium 50 Mg Tablet PO DAILY SARA Meclizine HCl 25 mg 12/13/23 21:22 Meclizine Hcl 25 Mg Tablet PO BID PRN Dizziness Or Vertigo Methocarbamol 750 mg 12/13/23 21:22 Methocarbamol 750 Mg Tablet PO Q8H PRN muscle spasms Metoprolol Succinate 50 mg 12/16/23 09:00 Metoprolol Succinate Ext Rel 50 Mg Tabcr PO DAILY [facility] Nystatin 5 ml 12/13/23 21:35 12/15/23 20:42 Nystatin 100,000 Units/Ml Susp 5 Ml Oral.Susp BY MOUTH 5 ml QID SARA Administration Ondansetron HCl 4 mg 12/13/23 21:22 Ondansetron Hcl Odt 4 Mg Tablet PO Q8H PRN Nausea And Vomiting Perflutren Lipid Microsphere 0 ml 12/14/23 08:55 Perflutren Lipid Microspheres 1.5 Ml Vial Diluted To 10 Ml Total Volume IV PUSH 12/17/23 08:55 ONCE PRN adequate visualization Protocol Potassium Chloride 40 meq 12/15/23 09:00 12/15/23 09:26 Potassium Chloride 20 Meq Packet (For Liquid) PO 40 meq DAILY SARA Administration Rosuvastatin Calcium 20 mg 12/13/23 21:35 12/15/23 20:42 Rosuvastatin 20 Mg Tablet PO 20 mg HS SARA Administration Radiology Results: ITS Impressions Head CT 12/13/23 10:38 Impression: No intracranial hemorrhage, mass, or acute infarct. Atrophy and chronic white matter changes, as above. Chest X-Ray 12/13/23 10:39 IMPRESSION: 1. Mild atelectasis at left lung base. 2. Cardiomegaly. Chest/Abdomen/Pelvis CT 12/13/23 14:18 IMPRESSION: 1. Small sliding hiatal hernia. Venous Doppler Study 12/15/23 14:19 IMPRESSION: 1. Bilateral [id number] deep venous thrombosis in the right peroneal vein and left posterior tibial and peroneal veins. Labs Labs: Laboratory Results - last 24 hr 12/15/23 12/15/23 12/15/23 08:14 08:14 08:17 WBC 7.9 RBC 3.82 L Hgb 11.3 L Hct 36.1 L MCV 94.5 MCH 29.6 MCHC 31.3 L RDW 12.8 Plt Count 272 MPV 10.5 H Immature Gran % (Auto) 0.4 Neut % (Auto) 69.7 Lymph % (Auto) 21.4 [place] % (Auto) 5.2 Eos % (Auto) 2.4 Baso % (Auto) 0.9 Lymph # (Auto) 1.69 [place] # (Auto) 0.4 Eos # (Auto) 0.2 Baso # (Auto) 0.1 Abs Immat Gran (auto) 0.03 Absolute Neuts (auto) 5.5 Absolute Nucleated RBC 0.000 Nucleated RBC % 0.0 Sodium Cancelled Potassium Cancelled Chloride Cancelled Carbon Dioxide Cancelled Anion Gap Cancelled BUN Cancelled Creatinine Cancelled Estim Creat Clear Calc Cancelled Estimated GFR Cancelled Glucose Cancelled POC Capillary Glucose Calcium Cancelled Magnesium 1.3 L Cancelled Troponin I 0.072 H* 12/15/23 12/15/23 12/15/23 12:00 17:08 19:40 WBC RBC Hgb Hct MCV MCH MCHC RDW Plt Count MPV Immature Gran % (Auto) Neut % (Auto) Lymph % (Auto) [place] % (Auto) Eos % (Auto) Baso % (Auto) Lymph # (Auto) [place] # (Auto) Eos # (Auto) Baso # (Auto) Abs Immat Gran (auto) Absolute Neuts (auto) Absolute Nucleated RBC Nucleated RBC % Sodium Potassium Chloride Carbon Dioxide Anion Gap BUN Creatinine Estim Creat Clear Calc Estimated GFR Glucose POC Capillary Glucose 174 H 133 H 130 H Calcium Magnesium Troponin I 12/16/23 06:26 WBC 6.7 RBC 3.86 L Hgb 11.6 L Hct 35.5 L MCV 92.0 MCH 30.1 MCHC 32.7 RDW 12.5 Plt Count 251 MPV 10.6 H Immature Gran % (Auto) 0.4 Neut % (Auto) 72.9 Lymph % (Auto) 17.9 L [place] % (Auto) 6.0 Eos % (Auto) 1.9 Baso % (Auto) 0.9 Lymph # (Auto) 1.20 [place] # (Auto) 0.4 Eos # (Auto) 0.1 Baso # (Auto) 0.1 Abs Immat Gran (auto) 0.03 Absolute Neuts (auto) 4.9 Absolute Nucleated RBC 0.000 Nucleated RBC % 0.0 Sodium Potassium Chloride Carbon Dioxide Anion Gap BUN Creatinine Estim Creat Clear Calc Estimated GFR Glucose POC Capillary Glucose Calcium Magnesium Troponin I
--- NOTE | 2023-12-16 07:57 | P.PNIM_ITS ---
Progress Note: A&P Assessment and Plan (1) Altered mental status: Qualifiers: Altered mental status type: somnolence Qualified Code(s): R40.0 - Somnolence Code(s): R41.82 - Altered mental status, unspecified Status: Acute (2) SIRS (systemic inflammatory response syndrome): Code(s): R65.10 - Systemic inflammatory response syndrome (SIRS) of non-infectious origin without acute organ dysfunction Status: Acute (3) HTN (hypertension): Qualifiers: Hypertension type: primary hypertension Qualified Code(s): I10 - Essential (primary) hypertension Code(s): I10 - Essential (primary) hypertension Status: Chronic (4) UTI (urinary tract infection): Qualifiers: Hematuria presence: without hematuria Urinary tract infection type: acute cystitis Qualified Code(s): N30.00 - Acute cystitis without hematuria Code(s): N39.0 - Urinary tract infection, site not specified Status: Acute (5) Type 2 diabetes mellitus: Qualifiers: Diabetes mellitus complication status: without complication Diabetes mellitus recording artist insulin use: without mcfp use Qualified Code(s): E11.9 - Type 2 diabetes mellitus without complications Code(s): E11.9 - Type 2 diabetes mellitus without complications Status: Chronic Plan SEPSIS - meets Sepsis criteria: HR, RR, leukocytosis 11,400 Likely resulting from UTI - lactic acid: 2.0, procalcitonin added - 30 mL/kg = 720, 1L bolus given - suspected source: UTI - started on ceftriaxone - blood cultures drawn on 12/12 - UA consistent with UTI - CXR showing no pneumonia - monitor hemodynamic stability and temp Resolved Acute encephalopathy -head CT: no intracranial hemorrhage mass or acute infarct. atrophy and chronic white matter changes, see report. Likely secondary to UTI, dehydration Neuro check Mental status improving, still not oriented x3, possible baseline due to recent stroke consult neurologist DVT Anticoagulation on hold due to recent stroke per neurologist Per rehab note, MRI done on 11/11 showed a new infarction not sure ischemic or intracranial bleeding stroke 12/14 venous Doppler Bilateral [id number] deep venous thrombosis in the right peroneal vein and left posterior tibial and peroneal veins. repeat CT head today Will consult neurologist regarding long-term oral anticoagulation, If anticoagulation is contraindicated will place inferior vena cava future KAUSHAL Elevated BUN creatinine above baseline, upon arrival 28 over 1.2, baseline creatinine 0.8 December 09, 2023 Likely secondary to dehydration and UTI Received antibiotics on normal saline 125 mL/hour Creatinine is trending down dcrease NS to 75 ml/h Hypokalemia Hypokalemia upon arrival, Replete with potassium chloride 40 mEq daily p.o. Follow-up BMP, magnesium level Elevated troponin EKG, initial: Sinus rhythm, rate 90, left axis deviation, possible anterior ND probably old, moderate T-wave abnormality consider lateral ischemia. No previous available for comparison. - CXR: Mild atelectasis at left lung base and cardiomegaly. - CT chest/abdomen/pelvis with con: small sliding hiatal hernia. - Troponin: Positive serial troponin no chest pain or shortness of breath - ASA 324 ordered and SL nitro PRN - suspect alteration is multifactorial secondary to hypoxia, UTI, and hypotension. - telemetry monitoring Follow-up echocardiogram, 1. Complete two-dimensional, color flow and Doppler transthoracic echocardiogram is performed. 2. Left ventricular chamber dimension is normal. 3. Left ventricular systolic function is normal, estimated at 60-65%. 4. There is moderate concentric increased left ventricular wall thickness. 5. The left ventricular diastolic function is grade I diastolic dysfunction. 6. E/e' 14 is mildly elevated. 7. Left atrial chamber dimension is moderately enlarged. 8. There is trace mitral valve regurgitation. 9. There is trace tricuspid valve regurgitation. 10. No pulmonary hypertension, estimated pulmonary arterial systolic pressure is 33 mmHg. 11. There is trivial pericardial effusion. consulted Cardiology, no further ischemic workup per tomato paste maker recommendation UTI (urinary tract infection): Qualifiers: Hematuria presence: without hematuria Urinary tract infection type: acute cystitis Qualified Code(s): N30.00 - Acute cystitis without hematuria Code(s): N39.0 - Urinary tract infection, site not specified Status: Acute Assessment and Plan: - UA: Cloudy, 2+ protein, trace ketones, 1+ blood, 2+ leuk esterase, 3-5 RBC, 21-50 WBC, no epithelial cells, 4+ bacteria - UC pending - no previous micro available for review - started on Ceftriaxone on 12/12 - rene exchanged on 12/12, originally placed post-CVA on 11/30 Type 2 diabetes mellitus: Qualifiers: Diabetes mellitus complication status: without complication Diabetes mellitus mcfp insulin use: without recording artist use Qualified Code(s): E11.9 - Type 2 diabetes mellitus without complications Code(s): E11.9 - Type 2 diabetes mellitus without complications Status: Chronic Assessment and Plan: - hypoglycemia protocol - POC blood glucose ACHS - home medication: Hold metformin - correct regimen ordered - low dose TIDWM, based off BMI - A1C ordered HTN (hypertension): Qualifiers: Hypertension type: primary hypertension Qualified Code(s): I10 - Essential (primary) hypertension Code(s): I10 - Essential (primary) hypertension Status: Chronic Assessment and Plan: Uncontrolled hypertension, Increased globulin 10 mg daily p.o., continue metoprolol 25 mg daily p.o., increase losartan 100 mg daily p.o. Start hydralazine p.r.n. IV with parameters Subjective Date/time seen: 12/16/23 07:57 Interval history: I saw and examined patient in presents of the patient's nurse. able to answer questions, unable to provide reliable history. Patient denies abdomen pain, nausea vomiting diarrhea. Labs reviewed, patient is afebrile, blood pressure stable, Exam Narrative: GENERAL: Pleasant, in no acute distress. Well-nourished. - EYES: EOMI. Anicteric. - HENT: Dry mucous membranes. - LUNGS: Clear to auscultation bilateral ly, no wheezing, rhonchi, or rales. - CARDIOVASCULAR: Regular rate and rhyth m. No murmur. No JVD. - ABDOMEN: Soft, non-tender and non-dist ended. No palpable masses. - EXTREMITIES: No edema. Peripheral puls es 2+. Non-tender. - NEUROLOGIC: No focal neurological defi cits. CN II-XII grossly intact. Focal weakness, - PSYCHIATRIC: Awake, Alert and not orie nted x 3. Appropriate mood and affect. - SKIN: No rashes or lesions. Warm. - LYMPH: No cervical lymphadenopathy. Objective Data Vital Signs Vital Signs: Vital Signs - 24 hr 12/15/23 09:26 12/15/23 12:00 12/15/23 12:18 Temperature 98 F Pulse Rate 83 75 90 Respiratory Rate 16 Blood Pressure 142/95 H Pulse Oximetry 97 Oxygen Delivery Fraction of Inspired Oxygen 12/15/23 16:00 12/15/23 20:00 12/15/23 21:45 Temperature 98.1 F Pulse Rate 71 79 81 Respiratory Rate 16 Blood Pressure 140/75 Pulse Oximetry 96 Oxygen Delivery Fraction of Inspired Oxygen 12/16/23 00:00 12/15/23 20:00 12/16/23 06:00 Temperature 97.7 F Pulse Rate 81 81 80 Respiratory Rate 16 16 Blood Pressure 173/86 H Pulse Oximetry 96 98 Oxygen Delivery Room Air Fraction of Inspired Oxygen 12/16/23 04:00 Temperature Pulse Rate 97 Respiratory Rate Blood Pressure Pulse Oximetry Oxygen Delivery Fraction of Inspired Oxygen Intake/Output Intake/Output: Intake & Output 12/13/23 12/14/23 12/15/23 12/16/23 23:59 23:59 23:59 22:59 Intake Total 1120 3267.9 2320.0 1000 Output Total 300 2475 3675 1100 Balance 820 792.9 -1355.0 -100 Meds/Results Medications: Active Medications Generic Name Dose Route Start Last Admin Trade Name Freq PRN Reason Stop Dose Admin Acetaminophen 650 mg 12/13/23 21:22 Acetaminophen 325 Mg Tablet PO Q6H PRN PAIN RATED 1-3 Amlodipine Besylate 10 mg 12/15/23 09:00 12/15/23 09:27 Amlodipine Besylate 10 Mg Tablet PO 10 mg DAILY SARA Administration Aspirin 81 mg 12/14/23 09:00 12/15/23 09:27 Aspirin 81 Mg Enteric Tablet PO 81 mg DAILY SARA Administration Clopidogrel Bisulfate 75 mg 12/14/23 09:00 12/15/23 09:27 Clopidogrel Bisulfate 75 Mg Tablet PO 75 mg DAILY SARA Administration Dextrose 12.5 gm 12/13/23 15:48 Dextrose 50% 25 Gm/50 Ml Syringe IV PUSH PRN PRN Hypoglycemia Protocol Glucagon 1 mg 12/13/23 15:48 Glucagon For Inj 1 Mg Vial IM PRN PRN Hypoglycemia Protocol Glucose 15 gm 12/13/23 15:48 Glucose Oral Gel 15 Gm Of Glucse In 37.5 Gm Tube PO PRN PRN Hypoglycemia Protocol Hydralazine HCl 10 mg 12/15/23 08:43 Hydralazine Hcl 20 Mg/Ml Vial IV PUSH Q6H PRN Blood Pressure - High Sodium Chloride 1,000 mls @ 75 mls/hr 12/13/23 14:45 12/16/23 01:12 CDT Normal Saline Iv IV CONT 75 mls/hr .[id number] SARA Administration Ceftriaxone Sodium 1 gm in 50 mls @ 100 mls/hr 12/14/23 11:00 12/15/23 12:35 Rocephin 1 Gm/Ns 50 Ml IVPB Infused Q24H SARA Infusion Dextrose 1,000 mls @ 100 mls/hr 12/13/23 15:48 Dextrose 5% 1,000 Ml IVPB PRN PRN Hypoglycemia Protocol Insulin Aspart 2 - 5 units 12/13/23 17:00 12/15/23 16:24 Insulin Aspart (*Bkc) 100 Units/Ml SUB-Q Not Given TIDWM SARA Protocol Isosorbide Mononitrate 30 mg 12/14/23 09:00 12/15/23 09:27 Isosorbide Mononitrate 30 Mg Tab.Er.24h PO 30 mg DAILY ASRA Administration Losartan Potassium 100 mg 12/16/23 09:00 Losartan Potassium 50 Mg Tablet PO DAILY SARA Meclizine HCl 25 mg 12/13/23 21:22 Meclizine Hcl 25 Mg Tablet PO BID PRN Dizziness Or Vertigo Methocarbamol 750 mg 12/13/23 21:22 Methocarbamol 750 Mg Tablet PO Q8H PRN muscle spasms Metoprolol Succinate 50 mg 12/16/23 09:00 Metoprolol Succinate Ext Rel 50 Mg Tabcr PO DAILY SARA Nystatin 5 ml 12/13/23 21:35 12/15/23 20:42 Nystatin 100,000 Units/Ml Susp 5 Ml Oral.Susp BY MOUTH 5 ml QID SARA Administration Ondansetron HCl 4 mg 12/13/23 21:22 Ondansetron Hcl Odt 4 Mg Tablet PO Q8H PRN Nausea And Vomiting Perflutren Lipid Microsphere 0 ml 12/14/23 08:55 Perflutren Lipid Microspheres 1.5 Ml Vial Diluted To 10 Ml Total Volume IV PUSH 12/17/23 08:55 ONCE PRN adequate visualization Protocol Potassium Chloride 40 meq 12/15/23 09:00 12/15/23 09:26 Potassium Chloride 20 Meq Packet (For Liquid) PO 40 meq DAILY SARA Administration Rosuvastatin Calcium 20 mg 12/13/23 21:35 12/15/23 20:42 Rosuvastatin 20 Mg Tablet PO 20 mg HS SARA Administration Radiology Results: ITS Impressions Head CT 12/13/23 10:38 Impression: No intracranial hemorrhage, mass, or acute infarct. Atrophy and chronic white matter changes, as above. Chest X-Ray 12/13/23 10:39 IMPRESSION: 1. Mild atelectasis at left lung base. 2. Cardiomegaly. Chest/Abdomen/Pelvis CT 12/13/23 14:18 IMPRESSION: 1. Small sliding hiatal hernia. Venous Doppler Study 12/15/23 14:19 IMPRESSION: 1. Bilateral [id number]-tss-[id number] deep venous thrombosis in the right peroneal vein and left posterior tibial and peroneal veins. Labs Labs: Laboratory Results - last 24 hr 12/15/23 12/15/23 12/15/23 08:14 08:14 08:17 WBC 7.9 RBC 3.82 L Hgb 11.3 L Hct 36.1 L MCV 94.5 MCH 29.6 MCHC 31.3 L RDW 12.8 Plt Count 272 MPV 10.5 H Immature Gran % (Auto) 0.4 Neut % (Auto) 69.7 Lymph % (Auto) 21.4 [place] % (Auto) 5.2 Eos % (Auto) 2.4 Baso % (Auto) 0.9 Lymph # (Auto) 1.69 [place] # (Auto) 0.4 Eos # (Auto) 0.2 Baso # (Auto) 0.1 Abs Immat Gran (auto) 0.03 Absolute Neuts (auto) 5.5 Absolute Nucleated RBC 0.000 Nucleated RBC % 0.0 Sodium Cancelled Potassium Cancelled Chloride Cancelled Carbon Dioxide Cancelled Anion Gap Cancelled BUN Cancelled Creatinine Cancelled Estim Creat Clear Calc Cancelled Estimated GFR Cancelled Glucose Cancelled POC Capillary Glucose Calcium Cancelled Magnesium 1.3 L Cancelled Troponin I 0.072 H* 12/15/23 12/15/23 12/15/23 12:00 17:08 19:40 WBC RBC Hgb Hct MCV MCH MCHC RDW Plt Count MPV Immature Gran % (Auto) Neut % (Auto) Lymph % (Auto) [place] % (Auto) Eos % (Auto) Baso % (Auto) Lymph # (Auto) [place] # (Auto) Eos # (Auto) Baso # (Auto) Abs Immat Gran (auto) Absolute Neuts (auto) Absolute Nucleated RBC Nucleated RBC % Sodium Potassium Chloride Carbon Dioxide Anion Gap BUN Creatinine Estim Creat Clear Calc Estimated GFR Glucose POC Capillary Glucose 174 H 133 H 130 H Calcium Magnesium Troponin I 12/16/23 06:26 WBC 6.7 RBC 3.86 L Hgb 11.6 L Hct 35.5 L MCV 92.0 MCH 30.1 MCHC 32.7 RDW 12.5 Plt Count 251 MPV 10.6 H Immature Gran % (Auto) 0.4 Neut % (Auto) 72.9 Lymph % (Auto) 17.9 L [place] % (Auto) 6.0 Eos % (Auto) 1.9 Baso % (Auto) 0.9 Lymph # (Auto) 1.20 [place] # (Auto) 0.4 Eos # (Auto) 0.1 Baso # (Auto) 0.1 Abs Immat Gran (auto) 0.03 Absolute Neuts (auto) 4.9 Absolute Nucleated RBC 0.000 Nucleated RBC % 0.0 Sodium Potassium Chloride Carbon Dioxide Anion Gap BUN Creatinine Estim Creat Clear Calc Estimated GFR Glucose POC Capillary Glucose Calcium Magnesium Troponin I
[2023-12-16 08:14] LABS: Potassium 3.3 mmol/L (3.4-5.0)
[2023-12-16 08:16] LABS: Glucose Point of Care 90 mg/dl (65-105)
[2023-12-16] MEDS: ASPIRIN 81 MG ENTERIC TABLET PO (08:20)
[2023-12-16] MEDS: ISOSORBIDE MONONITRATE 30 MG TAB.ER.24H PO (08:20)
[2023-12-16] MEDS: POTASSIUM CHLORIDE 20 MEQ PACKET (FOR LIQUID) 40 MEQ PO (08:20)
[2023-12-16] MEDS: METOPROLOL SUCCINATE EXT REL 50 MG TABCR PO (08:20)
[2023-12-16] MEDS: NYSTATIN 100,000 UNITS/ML SUSP 5 ML ORAL.SUSP BY MOUTH (08:20)
[2023-12-16] MEDS: LOSARTAN POTASSIUM 50 MG TABLET 100 MG PO (08:20)
[2023-12-16] MEDS: CLOPIDOGREL BISULFATE 75 MG TABLET PO (08:21)
[2023-12-16] MEDS: amLODIPine BESYLATE 10 MG TABLET PO (08:21)
[2023-12-16 08:23] LABS: Magnesium 1.2 mg/dL (1.6-2.3)
[2023-12-16 08:31] LABS: Anion Gap 10 mmol/L (4-12); Blood Urea Nitrogen 7 mg/dL (7-17); Calcium 8.3 mg/dL (8.4-10.2); Carbon Dioxide 26 mmol/L (22-30); Chloride 100 mmol/L (98-107); Estimated CRCL calculation 38 ml/min; Estimated Glomerular Filt Rate > 60; Glucose 91 mg/dL (65-110); Potassium 3.3 mmol/L (3.4-5.0); Sodium 136 mmol/L (137-145)
[2023-12-16 12:40] LABS: Glucose Point of Care 125 mg/dl (65-105)
[2023-12-16] MEDS: MAGNESIUM SULF 2 GM/WATER 50ML 2 GM/50 ML BAG IVPB (14:33)
[2023-12-16 17:19] LABS: Glucose Point of Care 131 mg/dl (65-105)
--- NOTE | 2023-12-16 17:21 | PC.NURSE ---
Nahomi's updated number is [phone].
[2023-12-16] MEDS: ROSUVASTATIN 20 MG TABLET PO (21:21)
[2023-12-16 21:38] LABS: Glucose Point of Care 135 mg/dl (65-105)
[2023-12-17] VITALS (9 sets, daily range): BP systolic 114–145; BP diastolic 60–78; PULSE 67–80; RESP 14–18; TEMP 36.7–37.1; O2SAT 93–98
[2023-12-17 07:41] LABS: Glucose Point of Care 80 mg/dl (65-105)
[2023-12-17 07:42] LABS: Basophils Absolute Auto 0.1 K/mm3 (0.0-0.1); Basophils Percent Auto 0.9 % (0.2-1.2); Eosinophils Absolute Auto 0.1 K/mm3 (0-0.3); Eosinophils Percent Auto 1.6 % (0-4.4); Hematocrit 30.7 % (37.0-47.0); Hemoglobin 9.9 g/dL (12.0-15.0); Immature Granulocyte Absolute 0.02 K/mm3 (0.00-0.031); Immature Granulocyte Percent A 0.3 % (0-0.5); Lymphocytes Absolute Auto 1.23 K/mm3 (0.9-3.2); Lymphocytes Percent Auto 19.4 % (18.3-44.2); Mean Corpuscular HGB Conc 32.2 g/dl (32-36); Mean Corpuscular Hemoglobin 29.6 pg (26-34); Mean Corpuscular Volume 91.9 fl (80-100); Mean Platelet Volume 10.6 fl (7.4-10.4); Monocytes Absolute Auto 0.4 K/mm3 (0.1-0.6); Monocytes Percent Auto 6.1 % (2.6-8.5); Neutrophils Absolute Auto 4.6 K/mm3 (1.3-6.7); Neutrophils Percent Auto 71.7 % (45.5-73.1); Platelet Count Result 256 k/mm3 (150-375); Red Blood Count 3.34 M/mm3 (4.2-5.4); Red Cell Distribution Width 12.6 % (11.5-14.5); White Blood Count 6.4 K/mm3 (4.5-10.0)
--- NOTE | 2023-12-17 07:44 | PM.PNCARD ---
Progress Note: A&P Assessment and Plan (1) Syncope: Qualifiers: Syncope type: unspecified Qualified Code(s): R55 - Syncope and collapse Code(s): R55 - Syncope and collapse Status: Acute Assessment and Plan: Probably due to volume depletion and UTI. Agree with IV hydration. (2) HTN (hypertension): Qualifiers: Hypertension type: primary hypertension Qualified Code(s): I10 - Essential (primary) hypertension Code(s): I10 - Essential (primary) hypertension Status: Chronic Assessment and Plan: Stable. (3) History of cerebellar stroke: Code(s): Z86.73 - Personal history of transient ischemic attack (TIA), and cerebral infarction without residual deficits Status: Acute Assessment and Plan: Unknown etiology, could be from PFO or not. On aspirin and Plavix. (4) Elevated troponin: Code(s): R79.89 - Other specified abnormal findings of blood chemistry Status: Acute Assessment and Plan: Troponin peaked at 0.146. Doubt ACS as she has no symptoms related to it. Probably due to UTI. 12/14/23 Echo with EF 60-65%, grade I diastolic dysfunction (E/e' 14). No further cardiac workup is needed. Will sign off, please call with any questions. She is to keep her appointment with her regular manager forensic, Dr. Epps with [facility] [address]. (5) DVT (deep venous thrombosis): Code(s): I82.409 - Acute embolism and thrombosis of unspecified deep veins of unspecified lower extremity Status: Acute Assessment and Plan: Leg DVT per family's history recently. Not on anticoagulation due to recent stroke per family. Need neurology to let us know when OK to start anticoagulation for this. (6) PFO (patent foramen ovale): Code(s): Q21.12 - Patent foramen ovale Status: Acute Assessment and Plan: Per history. (7) CAD (coronary artery disease): Code(s): I25.10 - Atherosclerotic heart disease of kashia coronary artery without angina pectoris Status: Acute Assessment and Plan: On dual antiplatelets as it was recent stent in August 2023 at [facility] [place]. Subjective Date/time seen: 12/17/23 07:44 Interval history: Denies chest pain or sob. Exam Const: General: cooperative, healthy appearing and comfortable Orientation/consciousness: oriented to person, oriented to place and oriented to time Resp: Auscultation: clear to auscultation bilaterally, no crackles, no rales, no rhonchi and no wheezes Cardio: Rate: regular rate Rhythm: regular rhythm Heart sounds: no murmurs Peripheral pulses: dorsalis pedis present Neuro: General: oriented to person, oriented to place and oriented to time Extrem: Right lower extremity: no edema Left lower extremity: no edema Objective Data Vital Signs Vital Signs: Vital Signs - 24 hr 12/16/23 08:00 12/16/23 08:00 12/16/23 12:00 Temperature Pulse Rate 79 60 Respiratory Rate Blood Pressure Pulse Oximetry Oxygen Delivery Room Air 12/16/23 16:00 12/16/23 14:00 12/16/23 20:00 Temperature 97.5 F L Pulse Rate 79 70 72 Respiratory Rate 16 Blood Pressure 126/73 Pulse Oximetry 96 Oxygen Delivery 12/16/23 22:00 12/17/23 00:00 12/17/23 04:00 Temperature 97.7 F Pulse Rate 70 78 69 Respiratory Rate 18 Blood Pressure 119/65 Pulse Oximetry 95 Oxygen Delivery 12/17/23 06:00 Temperature 98.0 F Pulse Rate 67 Respiratory Rate 16 Blood Pressure 121/71 Pulse Oximetry 93 Oxygen Delivery Intake/Output Intake/Output: Intake & Output 12/15/23 12/16/23 12/16/23 12/17/23 00:59 00:59 23:59 23:59 Intake Total 0 Output Total 1000 Balance -1000 Meds/Results Medications: Active Medications Generic Name Dose Route Start Last Admin Trade Name Freq PRN Reason Stop Dose Admin Acetaminophen 650 mg 12/13/23 21:22 Acetaminophen 325 Mg Tablet PO Q6H PRN PAIN RATED 1-3 Amlodipine Besylate 10 mg 12/15/23 09:00 12/16/23 08:21 Amlodipine Besylate 10 Mg Tablet PO 10 mg DAILY SARA Administration Aspirin 81 mg 12/14/23 09:00 12/16/23 08:20 Aspirin 81 Mg Enteric Tablet PO 81 mg DAILY SARA Administration Clopidogrel Bisulfate 75 mg 12/14/23 09:00 12/16/23 08:21 Clopidogrel Bisulfate 75 Mg Tablet PO 75 mg DAILY SARA Administration Dextrose 12.5 gm 12/13/23 15:48 Dextrose 50% 25 Gm/50 Ml Syringe IV PUSH PRN PRN Hypoglycemia Protocol Glucagon 1 mg 12/13/23 15:48 Glucagon For Inj 1 Mg Vial IM PRN PRN Hypoglycemia Protocol Glucose 15 gm 12/13/23 15:48 Glucose Oral Gel 15 Gm Of Glucse In 37.5 Gm Tube PO PRN PRN Hypoglycemia Protocol Hydralazine HCl 10 mg 12/15/23 08:43 Hydralazine Hcl 20 Mg/Ml Vial IV PUSH Q6H PRN Blood Pressure - High Sodium Chloride 1,000 mls @ 75 mls/hr 12/13/23 14:45 12/16/23 14:35 Normal Saline Iv IV CONT 75 mls/hr .[id number] SARA Administration Ceftriaxone Sodium 1 gm in 50 mls @ 100 mls/hr 12/14/23 11:00 12/16/23 12:04 Rocephin 1 Gm/Ns 50 Ml IVPB Infused Q24H SARA Infusion Dextrose 1,000 mls @ 100 mls/hr 12/13/23 15:48 Dextrose 5% 1,000 Ml IVPB PRN PRN Hypoglycemia Protocol Insulin Aspart 2 - 5 units 12/13/23 17:00 12/16/23 17:11 Insulin Aspart (*Bkc) 100 Units/Ml SUB-Q Not Given TIDWM SARA Protocol Isosorbide Mononitrate 30 mg 12/14/23 09:00 12/16/23 08:20 Isosorbide Mononitrate 30 Mg Tab.Er.24h PO 30 mg DAILY SARA Administration Losartan Potassium 100 mg 12/16/23 09:00 12/16/23 08:20 Losartan Potassium 50 Mg Tablet PO 100 mg DAILY SARA Administration Meclizine HCl 25 mg 12/13/23 21:22 Meclizine Hcl 25 Mg Tablet PO BID PRN Dizziness Or Vertigo Methocarbamol 750 mg 12/13/23 21:22 Methocarbamol 750 Mg Tablet PO Q8H PRN muscle spasms Metoprolol Succinate 50 mg 12/16/23 09:00 12/16/23 08:20 Metoprolol Succinate Ext Rel 50 Mg Tabcr PO 50 mg DAILY SARA Administration Ondansetron HCl 4 mg 12/13/23 21:22 Ondansetron Hcl Odt 4 Mg Tablet PO Q8H PRN Nausea And Vomiting Perflutren Lipid Microsphere 0 ml 12/14/23 08:55 Perflutren Lipid Microspheres 1.5 Ml Vial Diluted To 10 Ml Total Volume IV PUSH 12/17/23 08:55 ONCE PRN adequate visualization Protocol Potassium Chloride 40 meq 12/15/23 09:00 12/16/23 08:20 Potassium Chloride 20 Meq Packet (For Liquid) PO 40 meq DAILY SARA Administration Rosuvastatin Calcium 20 mg 12/13/23 21:35 12/16/23 21:21 Rosuvastatin 20 Mg Tablet PO 20 mg HS SARA Administration Radiology Results: ITS Impressions Chest X-Ray 12/13/23 10:39 IMPRESSION: 1. Mild atelectasis at left lung base. 2. Cardiomegaly. Chest/Abdomen/Pelvis CT 12/13/23 14:18 IMPRESSION: 1. Small sliding hiatal hernia. Venous Doppler Study 12/15/23 14:19 IMPRESSION: 1. Bilateral gprja-jjk-jbes deep venous thrombosis in the right peroneal vein and left posterior tibial and peroneal veins. Head CT 12/16/23 11:55 IMPRESSION: 1. No acute intracranial process. 2. 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 3. Age-related changes including mild diffuse volume loss and mild scattered white matter hypoattenuation consistent with chronic small vessel ischemic disease. Labs Labs: Laboratory Results - last 24 hr 12/16/23 12/16/23 12/16/23 06:26 06:26 08:13 Sodium 136 L Potassium 3.3 L 3.3 L Chloride 100 Carbon Dioxide 26 Anion Gap 10 BUN 7 D Creatinine 0.70 Estim Creat Clear Calc 38 Estimated GFR > 60 Glucose 91 POC Capillary Glucose 90 Calcium 8.3 L Magnesium 1.2 L 12/16/23 12/16/23 12/16/23 12:36 17:13 20:45 Sodium Potassium Chloride Carbon Dioxide Anion Gap BUN Creatinine Estim Creat Clear Calc Estimated GFR Glucose POC Capillary Glucose 125 H 131 H 135 H Calcium Magnesium 12/17/23 07:32 Sodium Potassium Chloride Carbon Dioxide Anion Gap BUN Creatinine Estim Creat Clear Calc Estimated GFR Glucose POC Capillary Glucose 80 Calcium Magnesium
[2023-12-17 07:46] LABS: Anion Gap 11 mmol/L (4-12); Blood Urea Nitrogen 10 mg/dL (7-17); Carbon Dioxide 23 mmol/L (22-30); Chloride 104 mmol/L (98-107); Estimated CRCL calculation 38 ml/min; Estimated Glomerular Filt Rate > 60; Glucose 79 mg/dL (65-110); Potassium 2.8 mmol/L (3.4-5.0); Sodium 138 mmol/L (137-145)
[2023-12-17] MEDS: POTASSIUM CHLORIDE 20 MEQ PACKET (FOR LIQUID) 40 MEQ PO (08:07)
[2023-12-17] MEDS: LOSARTAN POTASSIUM 50 MG TABLET 100 MG PO (08:07)
[2023-12-17] MEDS: amLODIPine BESYLATE 10 MG TABLET PO (08:07)
[2023-12-17] MEDS: ISOSORBIDE MONONITRATE 30 MG TAB.ER.24H PO (08:07)
[2023-12-17] MEDS: METOPROLOL SUCCINATE EXT REL 50 MG TABCR PO (08:07)
[2023-12-17] MEDS: ASPIRIN 81 MG ENTERIC TABLET PO (08:07)
[2023-12-17] MEDS: CLOPIDOGREL BISULFATE 75 MG TABLET PO (08:07)
--- NOTE | 2023-12-17 08:22 | P.PNIM_ITS ---
Progress Note: A&P Assessment and Plan (1) Sepsis: Code(s): A41.9 - Sepsis, unspecified organism Status: Acute Assessment and Plan: * meeting sepsis criteria with elevated HR, elevated RR, leukocytosis of 11.4, lactic acid 2.0, AMS * UA initially showing possible UTI, Urine culture today was negative. * Rocephin discontinued * Blood cultures showing no growth to date on preliminary read * Improvement in heart rate, respiratory rate after fluid resuscitation (2) Altered mental status: Qualifiers: Altered mental status type: somnolence Qualified Code(s): R40.0 - Somnolence Code(s): R41.82 - Altered mental status, unspecified Status: Acute Assessment and Plan: * Head CT was negative for any acute intracranial process, shown old infarcts in the left cerebellar hemisphere, right thalamus, basal ganglia, left frontal lobe, and bilateral subinsular white matter, age related changes * MRI of brain and brain stem ordered today and shown a new acute infarct in the left cerebellum, old infarcts of the left parietal lobe, left insula, left occipital, and right thalamus. * Neurology consulted * UA appeared positive, UC was negative. Rocephin discontinued * Check CMP and ammonia level * Na+ normal at 138 (3) DVT (deep venous thrombosis): Code(s): I82.409 - Acute embolism and thrombosis of unspecified deep veins of unspecified lower extremity Status: Acute Assessment and Plan: * Bilateral below the knee DVT in the right peroneal vein and left posterior tibial and peroneal veins. * Currently anticoagulation on hold and will not be able to be restarted for at least a week post this new infarct per neurology recommendations. * Neurologist consulted regarding long term acute care registered nurse anticoagulation versus IVC filter (4) HTN (hypertension): Qualifiers: Hypertension type: primary hypertension Qualified Code(s): I10 - Essential (primary) hypertension Code(s): I10 - Essential (primary) hypertension Status: Chronic Assessment and Plan: * Blood pressure ranging 119/65-121/71 * Continue amlodipine (5) UTI (urinary tract infection): Qualifiers: Hematuria presence: without hematuria Urinary tract infection type: acute cystitis Qualified Code(s): N30.00 - Acute cystitis without hematuria Code(s): N39.0 - Urinary tract infection, site not specified Status: Acute Assessment and Plan: * Urine culture negative * Rocephin stopped (6) Type 2 diabetes mellitus: Qualifiers: Diabetes mellitus complication status: without complication Diabetes mellitus long term acute care registered nurse insulin use: without long term acute care registered nurse use Qualified Code(s): E11.9 - Type 2 diabetes mellitus without complications Code(s): E11.9 - Type 2 diabetes mellitus without complications Status: Chronic Assessment and Plan: * Blood sugars ranging 80-135 * Hgb A1C 6.6 * Accu checks AC/HS * low dose SSI ordered * hypoglycemic protocol in place * Diabetic diet ordered (7) Hypokalemia: Code(s): E87.6 - Hypokalemia Status: Acute Assessment and Plan: * Potassium 2.8 * 80 meq of KCL ordered * Will check magnesium level * continue to trend (8) Elevated troponin: Code(s): R79.89 - Other specified abnormal findings of blood chemistry Status: Acute Assessment and Plan: * Troponin 0.140>0.097>0.108>0.146>0.072 * Cardiology consulted * Echo reviewed and shown a normal LV systolic function with an EF of 60-65%, grade I diastolic dysfunction Time Spent With Patient Time with patient: 25 - 35 minutes Subjective Date/time seen: 12/17/23 08:22 Interval history: Interval history: This is an 83 year old female who presented to the hospital on 12/13/23 for evaluation of AMS and syncope. Work up in the hospital included a head CT which is negative for any acute findings. Chest x-ray which shown cardiomegaly, mild atelectasis at left lung base. Chest/abdomen/pelvis CT shown a small sliding hernia, otherwise negative. Venous Doppler study shown Bilateral [id number] deep venous thrombosis in the right peroneal vein and left posterior tibial and peroneal veins. Head Ct was negative for any acute findings, unchanged old infarcts in the left cerebellar hemisphere, right thalamus, basal ganglia, left frontal lobe, and bilateral subinsular white matter, age related changes. Subjective: Patient is alert and oriented x2-3, Denies any fever, chills, nausea, vomiting, diarrhea, abdominal pain, chest pain, shortness of breath. Labs and imaging reviewed. Review of Systems Review of Systems: All systems reviewed & are unremarkable except as noted in HPI and below Constitutional: Constitutional: Reports as per HPI and Reports no additional constitutional complaints Eyes: Eyes: Reports as per HPI and Reports no additional eye complaints ENT: Reports system reviewed and no additional complaints, except as documented and Reports as per HPI Cardiovascular: Cardiovascular: Reports as per HPI and Reports no additional cardiovascular complaints Respiratory: Respiratory: Reports as per HPI and Reports no additional respiratory complaints Gastrointestinal: Gastrointestinal: Reports as per HPI and Reports no additional gastrointestinal complaints Genitourinary: Genitourinary: Reports no additional female genitourinary complaints and Reports as per HPI Musculoskeletal: Musculoskeletal: Reports no additional musculoskeletal complaints and Reports as per HPI Integumentary/Breasts: Skin/Breast: Reports system reviewed and no additional complaints, except as docu and Reports as per HPI Neurologic: Reports system reviewed and no additional complaints, except as documented and Reports as per HPI Psychiatric: Psychiatric: Reports no additional psychiatric complaints and Reports as per HPI Exam Narrative: General: In no acute distress Head: atraumatic, no encephalopathy Eyes: PERRLA, sclera clear ENT: moist mucous membranes, nasal passages clear Neck: supple, no JVD, no adenopathy, trachea midline Cardiac: Normal S1 and S2. No murmur, gallops or friction rubs, peripheral pulses intact. Respiratory: Lungs clear to auscultation, no adventitious lung sounds Gastrointestinal: soft, non-distended, non-tender, normoactive bowel sounds. : voiding without difficulty. Extremities: moves all extremities well, no edema, good ROM, strength 4/5 on right side, 5/5 strength on left side Skin: clean, dry, intact. No wounds or lesions. Neuro: Alert and oriented x2-3, cranial nerves intact, no neuro deficits. She does have some dysphagia and slurred speech. confused Psych:interactive Objective Data Vital Signs Vital Signs: Vital Signs - 24 hr 12/16/23 12:00 12/16/23 16:00 12/16/23 14:00 Temperature 97.5 F L Pulse Rate 60 79 70 Respiratory Rate 16 Blood Pressure 126/73 Pulse Oximetry 96 12/16/23 20:00 12/16/23 22:00 12/17/23 00:00 Temperature 97.7 F Pulse Rate 72 70 78 Respiratory Rate 18 Blood Pressure 119/65 Pulse Oximetry 95 12/17/23 04:00 12/17/23 06:00 Temperature 98.0 F Pulse Rate 69 67 Respiratory Rate 16 Blood Pressure 121/71 Pulse Oximetry 93 Intake/Output Intake/Output: Intake & Output 12/15/23 12/16/23 12/16/23 12/17/23 00:59 00:59 23:59 23:59 Intake Total 0 Output Total 1000 Balance -1000 Meds/Results Medications: Active Medications Generic Name Dose Route Start Last Admin Trade Name Freq PRN Reason Stop Dose Admin Acetaminophen 650 mg 12/13/23 21:22 Acetaminophen 325 Mg Tablet PO Q6H PRN PAIN RATED 1-3 Amlodipine Besylate 10 mg 12/15/23 09:00 12/17/23 08:07 Amlodipine Besylate 10 Mg Tablet PO 10 mg DAILY SARA Administration Aspirin 81 mg 12/14/23 09:00 12/17/23 08:07 Aspirin 81 Mg Enteric Tablet PO 81 mg DAILY SARA Administration Clopidogrel Bisulfate 75 mg 12/14/23 09:00 12/17/23 08:07 Clopidogrel Bisulfate 75 Mg Tablet PO 75 mg DAILY SARA Administration Dextrose 12.5 gm 12/13/23 15:48 Dextrose 50% 25 Gm/50 Ml Syringe IV PUSH PRN PRN Hypoglycemia Protocol Glucagon 1 mg 12/13/23 15:48 Glucagon For Inj 1 Mg Vial IM PRN PRN Hypoglycemia Protocol Glucose 15 gm 12/13/23 15:48 Glucose Oral Gel 15 Gm Of Glucse In 37.5 Gm Tube PO PRN PRN Hypoglycemia Protocol Hydralazine HCl 10 mg 12/15/23 08:43 Hydralazine Hcl 20 Mg/Ml Vial IV PUSH Q6H PRN Blood Pressure - High Sodium Chloride 1,000 mls @ 75 mls/hr 12/13/23 14:45 12/16/23 14:35 Normal Saline Iv IV CONT 75 mls/hr .[id number] SARA Administration Dextrose 1,000 mls @ 100 mls/hr 12/13/23 15:48 Dextrose 5% 1,000 Ml IVPB PRN PRN Hypoglycemia Protocol Potassium Chloride 40 meq/ 520 mls @ 130 mls/hr 12/17/23 08:15 Sodium Chloride IVPB 12/17/23 12:14 ONCE ONE Insulin Aspart 2 - 5 units 12/13/23 17:00 12/17/23 07:47 Insulin Aspart (*Bkc) 100 Units/Ml SUB-Q Not Given TIDWM SARA Protocol Isosorbide Mononitrate 30 mg 12/14/23 09:00 12/17/23 08:07 Isosorbide Mononitrate 30 Mg Tab.Er.24h PO 30 mg DAILY SARA Administration Losartan Potassium 100 mg 12/16/23 09:00 12/17/23 08:07 Losartan Potassium 50 Mg Tablet PO 100 mg DAILY SARA Administration Meclizine HCl 25 mg 12/13/23 21:22 Meclizine Hcl 25 Mg Tablet PO BID PRN Dizziness Or Vertigo Methocarbamol 750 mg 12/13/23 21:22 Methocarbamol 750 Mg Tablet PO Q8H PRN muscle spasms Metoprolol Succinate 50 mg 12/16/23 09:00 12/17/23 08:07 Metoprolol Succinate Ext Rel 50 Mg Tabcr PO 50 mg DAILY SARA Administration Ondansetron HCl 4 mg 12/13/23 21:22 Ondansetron Hcl Odt 4 Mg Tablet PO Q8H PRN Nausea And Vomiting Perflutren Lipid Microsphere 0 ml 12/14/23 08:55 Perflutren Lipid Microspheres 1.5 Ml Vial Diluted To 10 Ml Total Volume IV PUSH 12/17/23 08:55 ONCE PRN adequate visualization Protocol Potassium Chloride 40 meq 12/15/23 09:00 12/17/23 08:07 Potassium Chloride 20 Meq Packet (For Liquid) PO 40 meq DAILY SARA Administration Rosuvastatin Calcium 20 mg 12/13/23 21:35 12/16/23 21:21 Rosuvastatin 20 Mg Tablet PO 20 mg HS SARA Administration Radiology Results: ITS Impressions Chest X-Ray 12/13/23 10:39 IMPRESSION: 1. Mild atelectasis at left lung base. 2. Cardiomegaly. Chest/Abdomen/Pelvis CT 12/13/23 14:18 IMPRESSION: 1. Small sliding hiatal hernia. Venous Doppler Study 12/15/23 14:19 IMPRESSION: 1. Bilateral [id number] deep venous thrombosis in the right peroneal vein and left posterior tibial and peroneal veins. Head CT 12/16/23 11:55 IMPRESSION: 1. No acute intracranial process. 2. 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 3. Age-related changes including mild diffuse volume loss and mild scattered white matter hypoattenuation consistent with chronic small vessel ischemic disease. Labs Labs: Laboratory Results - last 24 hr 1112/16/23 12/16/23 06:26 12:36 17:13 WBC RBC Hgb Hct MCV MCH MCHC RDW Plt Count MPV Immature Gran % (Auto) Neut % (Auto) Lymph % (Auto) [place] % (Auto) Eos % (Auto) Baso % (Auto) Lymph # (Auto) [place] # (Auto) Eos # (Auto) Baso # (Auto) Abs Immat Gran (auto) Absolute Neuts (auto) Absolute Nucleated RBC Nucleated RBC % Sodium 136 L Potassium 3.3 L Chloride 100 Carbon Dioxide 26 Anion Gap 10 BUN 7 D Creatinine 0.70 Estim Creat Clear Calc 38 Estimated GFR > 60 Glucose 91 POC Capillary Glucose 125 H 131 H Calcium 8.3 L Magnesium 1.2 L 12/16/23 12/17/23 12/17/23 20:45 07:08 07:09 WBC 6.4 RBC 3.34 L Hgb 9.9 L Hct 30.7 L MCV 91.9 MCH 29.6 MCHC 32.2 RDW 12.6 Plt Count 256 MPV 10.6 H Immature Gran % (Auto) 0.3 Neut % (Auto) 71.7 Lymph % (Auto) 19.4 [place] % (Auto) 6.1 Eos % (Auto) 1.6 Baso % (Auto) 0.9 Lymph # (Auto) 1.23 [place] # (Auto) 0.4 Eos # (Auto) 0.1 Baso # (Auto) 0.1 Abs Immat Gran (auto) 0.02 Absolute Neuts (auto) 4.6 Absolute Nucleated RBC 0.000 Nucleated RBC % 0.0 Sodium 138 Potassium 2.8 L* Chloride 104 Carbon Dioxide 23 Anion Gap 11 BUN 10 Creatinine 0.70 Estim Creat Clear Calc 38 Estimated GFR > 60 Glucose 79 POC Capillary Glucose 135 H Calcium 8.0 L Magnesium 12/17/23 07:32 WBC RBC Hgb Hct MCV MCH MCHC RDW Plt Count MPV Immature Gran % (Auto) Neut % (Auto) Lymph % (Auto) [place] % (Auto) Eos % (Auto) Baso % (Auto) Lymph # (Auto) [place] # (Auto) Eos # (Auto) Baso # (Auto) Abs Immat Gran (auto) Absolute Neuts (auto) Absolute Nucleated RBC Nucleated RBC % Sodium Potassium Chloride Carbon Dioxide Anion Gap BUN Creatinine Estim Creat Clear Calc Estimated GFR Glucose POC Capillary Glucose 80 Calcium Magnesium Quality VTE Prophylaxis VTE prophylaxis: mechanical ordered
[2023-12-17] MEDS: POTASSIUM CHLORIDE INJ 40 MEQ in SODIUM CHLORIDE 0.9% IV 500 ML 75 MEQ IVPB ×2 (08:45→15:02)
[2023-12-17 08:59] LABS: Ammonia < 9 umol/L (9-30)
[2023-12-17 09:09] LABS: Potassium 2.9 mmol/L (3.4-5.0)
[2023-12-17 09:24] LABS: Alanine Aminotransferase 14 U/L (6-35); Albumin Level 2.9 g/dL (3.5-5.1); Alkaline Phosphatase 72 U/L (38-126); Anion Gap 8 mmol/L (4-12); Aspartate Amino Transferase 28 U/L (14-36); Bilirubin,Total 0.9 mg/dL (0.2-1.3); Blood Urea Nitrogen 9 mg/dL (7-17); Calcium 8.1 mg/dL (8.4-10.2); Carbon Dioxide 24 mmol/L (22-30); Chloride 104 mmol/L (98-107); Estimated CRCL calculation 34 ml/min; Estimated Glomerular Filt Rate > 60; Glucose 107 mg/dL (65-110); Magnesium 1.7 mg/dL (1.6-2.3); Sodium 136 mmol/L (137-145)
[2023-12-17 12:00] LABS: Glucose Point of Care 120 mg/dl (65-105)
[2023-12-17] MEDS: polyethylene glycoL 3350 17 GM POWD.PACK PO (15:01)
[2023-12-17 16:50] LABS: Glucose Point of Care 116 mg/dl (65-105)
--- NOTE | 2023-12-17 18:22 | P.CONNEU_ITS ---
Assessment and Plan Assessment and plan (1) Acute ischemic vertebrobasilar artery cerebellar stroke: Code(s): I63.29 - Cerebral infarction due to unspecified occlusion or stenosis of other precerebral arteries Status: Acute (2) Type 2 diabetes mellitus: Qualifiers: Diabetes mellitus longitudinal float operator insulin use: without longitudinal float operator use Diabetes mellitus complication status: without complication Qualified Code(s): E11.9 - Type 2 diabetes mellitus without complications Code(s): E11.9 - Type 2 diabetes mellitus without complications Status: Chronic (3) CAD (coronary artery disease): Code(s): I25.10 - Atherosclerotic heart disease of [place] coronary artery without angina pectoris Status: Acute (4) History of cerebellar stroke: Code(s): Z86.73 - Personal history of transient ischemic attack (TIA), and cerebral infar ction without residual deficits Status: Acute Plan This is 3rd stroke, this patient has had in the last 6-7 weeks time the 1st 1 being in October and the 2nd 1 in November and now she has another stroke in the left cerebellar area. she has residual finding the right upper and lower limb and seems to somewhat lethargic as may happen with the brainstem strokes. The stroke is identified mostly in the left cerebellar area. There is some residual finding in the left parietal occipital area from the previous stroke. Other old strokes were also identified. The other question being asked that he see has DVT what should we do. There is a question about to have some hemorrhagic element in the cerebellar stroke and hence I would suggest not to use anticoagulation but rather we should get IVC filter to prevent thromboembolism here from the stroke point of view see should be treated with antiplatelets and statins with view to keep LDL under 65. Currently she is on Crestor 20 mg a day and aspirin and Plavix. These will be continued. She should be referred to a vascular surgeon for IVC filter Consult date: 12/17/23 HPI: Alba Thayer is a 83 year old female Presented to the hospital with change in mental status. She was found to be sleepy. She has been here for 4 days and that has been some improvement in her sleepiness. Patient's daughter was present at the time of the evaluation. I also spoke to the hospitalist on the case we discussed the findings. The patient is able to talk but has significant difficulty with walking. Prior to the this particular decline she was doing much better. She has had right arm weakness. She has had a stroke once in October and another 1 on 11/30 the 2nd 1 led to the right side weakness. She also had difficulty swallowing and speech. Her workup was done at [facility]. She also had a myocardial infarction earlier this area. She has had a CT angiogram of the head and neck also however she did not require any into a direct manner intervention. She has history of diabetes mellitus. [facility] was for last several days until she got transferred as a result of change in mental status. 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 Dysphagia as late effect of stroke HTN (hypertension) Stroke Type 2 diabetes mellitus with hyperglycemia Social History Social History Smoking status: Never smoker Second hand tobacco smoke exposure: Yes Alcohol intake: never Substance use: never Substance use type: does not use Do You Feel Safe in your Home?: Yes Lack of Transportation: No Lack of Food: Never True Current Housing: I Have Housing Concerned About Future Housing: No Difficulty Paying Gas/Electric Bills: No Difficulty Paying for Meds: No Currently Unemployed: No Education: High School Diploma/GED Difficulty w/ Childcare or Family Care: No Living arrangements: with family Gender identity (if verbalized by the patient): Female Sexual Orientation (if Verbalized by the Patient): Straight or Heterosexual Spiritual care concerns: No Meds Home Medications and Allergies Home Medications Medication Instructions Recorded Confirmed Type aspirin 81 mg tablet,delayed 81 mg PO DAILY 11/14/23 12/13/23 History release clopidogrel 75 mg tablet 75 mg PO DAILY 11/14/23 12/13/23 History losartan 50 mg tablet 50 mg PO DAILY 11/14/23 12/13/23 History meclizine 25 mg tablet 25 mg PO BID PRN Dizziness Or 11/14/23 12/13/23 History Vertigo metformin 500 mg tablet 500 mg PO BIDWM 11/14/23 12/13/23 History methocarbamol 750 mg tablet 750 mg PO Q8H PRN muscle spasms 11/14/23 12/13/23 History metoprolol succinate 25 mg 25 mg PO DAILY 11/14/23 12/13/23 History tablet,extended release 24 hr ondansetron 4 mg disintegrating 4 mg PO Q8H PRN Nausea And Vomiting 11/14/23 12/13/23 History tablet acetaminophen 325 mg tablet 650 mg PO Q6H PRN Pain 11/16/23 12/13/23 History amlodipine 5 mg tablet 5 mg PO DAILY 12/13/23 12/13/23 History nystatin 100,000 unit/mL oral 5 ml buccal QID 12/13/23 12/13/23 History suspension rosuvastatin 20 mg tablet 20 mg PO HS 12/13/23 12/13/23 History isosorbide mononitrate 30 mg 30 mg PO DAILY 12/14/23 12/14/23 History tablet,extended release 24 hr Allergies Allergy/AdvReac Type Severity Reaction Status Date / Time No Known Allergies Allergy Verified 12/08/23 18:26 Vital Signs Vital Signs - 24 hr 12/16/23 20:00 12/16/23 22:00 12/17/23 00:00 Temperature 97.7 F Pulse Rate 72 70 78 Respiratory Rate 18 Blood Pressure 119/65 Pulse Oximetry 95 Oxygen Delivery 12/17/23 04:00 12/17/23 06:00 12/17/23 08:00 Temperature 98.0 F Pulse Rate 69 67 Respiratory Rate 16 Blood Pressure 121/71 Pulse Oximetry 93 Oxygen Delivery Room Air 12/17/23 08:00 12/17/23 12:02 12/17/23 14:00 Temperature 98.1 F Pulse Rate 72 79 80 Respiratory Rate 14 Blood Pressure 114/60 Pulse Oximetry 96 Oxygen Delivery 12/17/23 16:03 Temperature Pulse Rate 69 Respiratory Rate Blood Pressure Pulse Oximetry Oxygen Delivery Exam Narrative: Patient awake and able to follow simple commands tends to sleep look to the left side visual shook probably normal extraocular movements intact pupils were equa l reacting. Apparent facial asymmetry. Mild to moderate weakness of the right upper and lower limb. Deep tendon reflexes slightly brisk on the right than left side. Sensory absent sensory unremarkable. No involuntary movements are seen. Rapid alternating movement of the right upper limb was decreased compared to the left side. Results Labs 12/17/23 07:09 12/17/23 08:42 Labs: Short CBC 11/04/24 Range/Units 07:09 WBC 6.4 (4.5-10.0) K/mm3 Hgb 9.9 L (12.0-15.0) g/dL Hct 30.7 L (37.0-47.0) % Plt Count 256 (150-375) k/mm3 BMP 12/17/23 12/17/23 07:08 08:42 Sodium 138 136 L Potassium 2.8 L* 2.9 L Chloride 104 104 Carbon Dioxide 23 24 BUN 10 9 Creatinine 0.70 0.80 Glucose 79 107 Calcium 8.0 L 8.1 L Liver Function 12/17/23 Range/Units 08:42 Total Bilirubin 0.9 (0.2-1.3) mg/dL AST 28 (14-36) U/L ALT 14 (6-35) U/L Alkaline Phosphatase 72 (38-126) U/L Albumin 2.9 L (3.5-5.1) g/dL Imaging Attestation: I personally reviewed and interpreted this imaging study as follows: ( MRI of the brain) My impression: a new infarct in the left cerebellar region and a subacute infarct noted in the left parietal area old infarct noted in the right side
[2023-12-17 20:08] LABS: Hemoglobin A1C 6.6 % (<5.7)
[2023-12-17 20:16] LABS: Cholesterol 86 mg/dL (0-200); HDL Direct 30 mg/dL; Triglycerides 99 mg/dL (<150)
[2023-12-17 20:28] LABS: LDL Cholesterol Direct 30 mg/dL
[2023-12-17 20:50] LABS: Vitamin D 25 Hydroxy < 12.8 ng/mL
[2023-12-17] MEDS: ROSUVASTATIN 20 MG TABLET PO (21:00)
[2023-12-17 21:02] LABS: Glucose Point of Care 115 mg/dl (65-105)
[2023-12-18] VITALS (10 sets, daily range): BP systolic 142–155; BP diastolic 75–79; PULSE 62–83; RESP 14–18; TEMP 36.2–36.7; O2SAT 95–98; BMI 25.0
[2023-12-18 06:46] LABS: Potassium 3.7 mmol/L (3.4-5.0)
[2023-12-18 07:59] LABS: Glucose Point of Care 90 mg/dl (65-105)
[2023-12-18] MEDS: polyethylene glycoL 3350 17 GM POWD.PACK PO (08:59)
[2023-12-18] MEDS: ISOSORBIDE MONONITRATE 30 MG TAB.ER.24H PO (08:59)
[2023-12-18] MEDS: POTASSIUM CHLORIDE 20 MEQ PACKET (FOR LIQUID) 40 MEQ PO (08:59)
[2023-12-18] MEDS: LOSARTAN POTASSIUM 50 MG TABLET 100 MG PO (08:59)
[2023-12-18] MEDS: CLOPIDOGREL BISULFATE 75 MG TABLET PO (09:00)
[2023-12-18] MEDS: amLODIPine BESYLATE 10 MG TABLET PO (09:00)
[2023-12-18] MEDS: METOPROLOL SUCCINATE EXT REL 50 MG TABCR PO (09:00)
[2023-12-18] MEDS: ASPIRIN 81 MG ENTERIC TABLET PO (09:00)
--- NOTE | 2023-12-18 09:20 | PM.IMPN ---
Progress Note: A&P Assessment and Plan (1) Sepsis: Code(s): A41.9 - Sepsis, unspecified organism Status: Acute (2) Acute kidney injury: Code(s): N17.9 - Acute kidney failure, unspecified Status: Acute (3) Acute UTI: Code(s): N39.0 - Urinary tract infection, site not specified Status: Acute Plan SEPSIS - meets Sepsis criteria: HR, RR, leukocytosis 11,400 Likely resulting from UTI - lactic acid: 2.0, procalcitonin added - 30 mL/kg = 720, 1L bolus given - suspected source: UTI - started on ceftriaxone - blood cultures drawn on 12/12 - UA consistent with UTI - CXR showing no pneumonia - monitor hemodynamic stability and temp Resolved Acute encephalopathy -head CT: no intracranial hemorrhage mass or acute infarct. atrophy and chronic white matter changes, see report. Likely secondary to UTI, dehydration Neuro check Mental status improving, still not oriented x3, possible baseline due to recent stroke consult neurologist DVT Anticoagulation on hold due to recent stroke per neurologist Per rehab note, MRI done on 11/11 showed a new infarction not sure ischemic or intracranial bleeding stroke 12/14 venous Doppler Bilateral [id number] deep venous thrombosis in the right peroneal vein and left posterior tibial and peroneal veins. repeat CT head today consult neurologist regarding long-term oral anticoagulation, Neurologist recommend inferior vena cava future Consult general surgeon for evaluation and pacing inferior vena cava filter KAUSHAL Elevated BUN creatinine above baseline, upon arrival 28 over 1.2, baseline creatinine 0.8 December 09, 2023 Likely secondary to dehydration and UTI Received antibiotics Creatinine is trending down 0.8, resolved Discontinue IV fluid Hypokalemia Hypokalemia upon arrival, Replete with potassium chloride 40 mEq daily p.o. Follow-up BMP, magnesium level Corrected Elevated troponin EKG, initial: Sinus rhythm, rate 90, left axis deviation, possible anterior CT probably old, moderate T-wave abnormality consider lateral ischemia. No previous available for comparison. - CXR: Mild atelectasis at left lung base and cardiomegaly. - CT chest/abdomen/pelvis with con: small sliding hiatal hernia. - Troponin: Positive serial troponin no chest pain or shortness of breath - ASA 324 ordered and SL nitro PRN - suspect alteration is multifactorial secondary to hypoxia, UTI, and hypotension. - telemetry monitoring Follow-up echocardiogram, 1. Complete two-dimensional, color flow and Doppler transthoracic echocardiogram is performed. 2. Left ventricular chamber dimension is normal. 3. Left ventricular systolic function is normal, estimated at 60-65%. 4. There is moderate concentric increased left ventricular wall thickness. 5. The left ventricular diastolic function is grade I diastolic dysfunction. 6. E/e' 14 is mildly elevated. 7. Left atrial chamber dimension is moderately enlarged. 8. There is trace mitral valve regurgitation. 9. There is trace tricuspid valve regurgitation. 10. No pulmonary hypertension, estimated pulmonary arterial systolic pressure is 33 mmHg. 11. There is trivial pericardial effusion. consulted Cardiology, no further ischemic workup per wound care center consultant recommendation UTI (urinary tract infection): Qualifiers: Hematuria presence: without hematuria Urinary tract infection type: acute cystitis Qualified Code(s): N30.00 - Acute cystitis without hematuria Code(s): N39.0 - Urinary tract infection, site not specified Status: Acute Assessment and Plan: - UA: Cloudy, 2+ protein, trace ketones, 1+ blood, 2+ leuk esterase, 3-5 RBC, 21-50 WBC, no epithelial cells, 4+ bacteria - UC pending - no previous micro available for review - started on Ceftriaxone on 12/12 - rene exchanged on 12/12, originally placed post-CVA on 11/30 Type 2 diabetes mellitus: Qualifiers: Diabetes mellitus complication status: without complication Diabetes mellitus director long term care insulin use: without custodial use Qualified Code(s): E11.9 - Type 2 diabetes mellitus without complications Code(s): E11.9 - Type 2 diabetes mellitus without complications Status: Chronic Assessment and Plan: - hypoglycemia protocol - POC blood glucose ACHS - home medication: Hold metformin - correct regimen ordered - low dose TIDWM, based off BMI - A1C ordered HTN (hypertension): Qualifiers: Hypertension type: primary hypertension Qualified Code(s): I10 - Essential (primary) hypertension Code(s): I10 - Essential (primary) hypertension Status: Chronic Assessment and Plan: Uncontrolled hypertension, Increased globulin 10 mg daily p.o., continue metoprolol 25 mg daily p.o., increase losartan 100 mg daily p.o. Start hydralazine p.r.n. IV with parameters Subjective Date/time seen: 12/18/23 09:20 Interval history: I saw exam patient today, patient has no new issue even overnight, patient is alert, not oriented x3, unable to provide reliable history. Patient has no obvious distress. Patient denies chest pain headache. Labs reviewed, hemodynamically stable, Exam Narrative: General: In no acute distress Head: atraumatic, no encephalopathy Eyes: PERRLA, sclera clear ENT: moist mucous membranes, nasal passages clear Neck: supple, no JVD, no adenopathy, trachea midline Cardiac: Normal S1 and S2. No murmur, gallops or friction rubs, peripheral pulses intact. Respiratory: Lungs clear to auscultation, no adventitious lung sounds Gastrointestinal: soft, non-distended, non-tender, normoactive bowel sounds. : voiding without difficulty. Extremities: moves all extremities well, no edema, good ROM, strength 4/5 on right side, 5/5 strength on left side Skin: clean, dry, intact. No wounds or lesions. Neuro: Alert and oriented x2-3, cranial nerves intact, no neuro deficits. She does have some dysphagia and slurred speech. confused Psych:interactive Objective Data Vital Signs Vital Signs: Vital Signs - 24 hr 12/17/23 12:02 12/17/23 14:00 12/17/23 16:03 Temperature 98.1 F Pulse Rate 79 80 69 Respiratory Rate 14 Blood Pressure 114/60 Pulse Oximetry 96 12/17/23 21:44 12/17/23 20:00 12/18/23 00:00 Temperature 98.8 F Pulse Rate 77 77 62 Respiratory Rate 18 Blood Pressure 145/78 H Pulse Oximetry 98 12/18/23 04:00 12/18/23 06:00 12/18/23 09:00 Temperature 98.1 F Pulse Rate 67 71 73 Respiratory Rate 18 Blood Pressure 155/75 H Pulse Oximetry 95 Intake/Output Intake/Output: Intake & Output 12/16/23 12/16/23 12/17/23 12/18/23 00:59 23:59 23:59 23:59 Intake Total 0 100 Output Total 1375 1700 Balance -1375 -1600 Meds/Results Medications: Active Medications Generic Name Dose Route Start Last Admin Trade Name Freq PRN Reason Stop Dose Admin Acetaminophen 650 mg 12/13/23 21:22 Acetaminophen 325 Mg Tablet PO Q6H PRN PAIN RATED 1-3 Amlodipine Besylate 10 mg 12/15/23 09:00 12/18/23 09:00 Amlodipine Besylate 10 Mg Tablet PO 10 mg DAILY SARA Administration Aspirin 81 mg 12/14/23 09:00 12/18/23 09:00 Aspirin 81 Mg Enteric Tablet PO 81 mg DAILY SARA Administration Clopidogrel Bisulfate 75 mg 12/14/23 09:00 12/18/23 09:00 Clopidogrel Bisulfate 75 Mg Tablet PO 75 mg DAILY SARA Administration Dextrose 12.5 gm 12/13/23 15:48 Dextrose 50% 25 Gm/50 Ml Syringe IV PUSH PRN PRN Hypoglycemia Protocol Glucagon 1 mg 12/13/23 15:48 Glucagon For Inj 1 Mg Vial IM PRN PRN Hypoglycemia Protocol Glucose 15 gm 12/13/23 15:48 Glucose Oral Gel 15 Gm Of Glucse In 37.5 Gm Tube PO PRN PRN Hypoglycemia Protocol Hydralazine HCl 10 mg 12/15/23 08:43 Hydralazine Hcl 20 Mg/Ml Vial IV PUSH Q6H PRN Blood Pressure - High Sodium Chloride 1,000 mls @ 75 mls/hr 12/13/23 14:45 12/18/23 01:25 Normal Saline Iv IV CONT Not Given .[id number] [facility] Dextrose 1,000 mls @ 100 mls/hr 12/13/23 15:48 Dextrose 5% 1,000 Ml IVPB PRN PRN Hypoglycemia Protocol Insulin Aspart 2 - 5 units 12/13/23 17:00 12/18/23 09:01 Insulin Aspart (*Bkc) 100 Units/Ml SUB-Q Not Given TIDWM [facility] Protocol Isosorbide Mononitrate 30 mg 12/14/23 09:00 12/18/23 08:59 Isosorbide Mononitrate 30 Mg Tab.Er.24h PO 30 mg DAILY SARA Administration Losartan Potassium 100 mg 12/16/23 09:00 12/18/23 08:59 Losartan Potassium 50 Mg Tablet PO 100 mg DAILY SARA Administration Meclizine HCl 25 mg 12/13/23 21:22 Meclizine Hcl 25 Mg Tablet PO BID PRN Dizziness Or Vertigo Methocarbamol 750 mg 12/13/23 21:22 Methocarbamol 750 Mg Tablet PO Q8H PRN muscle spasms Metoprolol Succinate 50 mg 12/16/23 09:00 12/18/23 09:00 Metoprolol Succinate Ext Rel 50 Mg Tabcr PO 50 mg DAILY SARA Administration Ondansetron HCl 4 mg 12/13/23 21:22 Ondansetron Hcl Odt 4 Mg Tablet PO Q8H PRN Nausea And Vomiting Polyethylene Glycol 17 gm 12/17/23 13:35 12/18/23 08:59 Polyethylene Glycol 3350 17 Gm Powd.Pack PO 17 gm QAM SARA Administration Potassium Chloride 40 meq 12/15/23 09:00 12/18/23 08:59 Potassium Chloride 20 Meq Packet (For Liquid) PO 40 meq DAILY SARA Administration Rosuvastatin Calcium 20 mg 12/13/23 21:35 12/17/23 21:00 Rosuvastatin 20 Mg Tablet PO 20 mg HS SARA Administration Radiology Results: ITS Impressions Chest X-Ray 12/13/23 10:39 IMPRESSION: 1. Mild atelectasis at left lung base. 2. Cardiomegaly. Chest/Abdomen/Pelvis CT 12/13/23 14:18 IMPRESSION: 1. Small sliding hiatal hernia. Venous Doppler Study 12/15/23 14:19 IMPRESSION: 1. Bilateral [id number]-[id number] deep venous thrombosis in the right peroneal vein and left posterior tibial and peroneal veins. Head CT 12/16/23 11:55 IMPRESSION: 1. No acute intracranial process. 2. 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 3. Age-related changes including mild diffuse volume loss and mild scattered white matter hypoattenuation consistent with chronic small vessel ischemic disease. Brain MRI 12/17/23 12:09 IMPRESSION: 1. Acute infarct in left cerebellum. Susceptibility artifact in this distribution may be calcifications or blood products. 2. Infarcts involving the left parietal lobe, left insula, and left occipital lobe, likely subacute or chronic. 3. Old infarct in the right thalamus. Labs Labs: Laboratory Results - last 24 hr 12/17/23 12/17/23 12/17/23 08:42 11:57 16:34 Sodium 136 L Potassium Chloride 104 Carbon Dioxide 24 Anion Gap 8 BUN 9 Creatinine 0.80 Estim Creat Clear Calc 34 Estimated GFR > 60 Glucose 107 POC Capillary Glucose 120 H 116 H Hemoglobin A1c Calcium 8.1 L Magnesium 1.7 Total Bilirubin 0.9 AST 28 ALT 14 Alkaline Phosphatase 72 Total Protein 6.0 L Albumin 2.9 L Triglycerides Cholesterol LDL Cholesterol Direct HDL Direct Vitamin B12 Vitamin D 25-Hydroxy Folate 12/17/23 12/17/23 12/18/23 19:49 20:27 05:54 Sodium Potassium 3.7 Chloride Carbon Dioxide Anion Gap BUN Creatinine Estim Creat Clear Calc Estimated GFR Glucose POC Capillary Glucose 115 H Hemoglobin A1c 6.6 H Calcium Magnesium Total Bilirubin AST ALT Alkaline Phosphatase Total Protein Albumin Triglycerides 99 Cholesterol 86 LDL Cholesterol Direct 30 HDL Direct 30 Vitamin B12 218.0 L Vitamin D 25-Hydroxy < 12.8 Folate 7.0 12/18/23 07:57 Sodium Potassium Chloride Carbon Dioxide Anion Gap BUN Creatinine Estim Creat Clear Calc Estimated GFR Glucose POC Capillary Glucose 90 Hemoglobin A1c Calcium Magnesium Total Bilirubin AST ALT Alkaline Phosphatase Total Protein Albumin Triglycerides Cholesterol LDL Cholesterol Direct HDL Direct Vitamin B12 Vitamin D 25-Hydroxy Folate
[2023-12-18] MEDS: SODIUM CHLORIDE 0.9% IV 1,000 ML 75 ML IV CONT (11:23)
[2023-12-18 11:59] LABS: Glucose Point of Care 109 mg/dl (65-105)
--- NOTE | 2023-12-18 12:02 | PC.NURSE ---
1202 Called Brooke, who lives in [place], back and updated her and also addressed any questions or concerns. She states her sister will be up to the hospital later today.
--- NOTE | 2023-12-18 13:30 | PC.NURSE ---
Patient sleeping upon arrival to his room. Patient is pleasant and cooperative. Call light education given. Call light and bed side table moved to L side. TV turned on.
--- NOTE | 2023-12-18 15:09 | P.CONGS_ITS ---
Assessment and Plan Assessment and plan (1) DVT (deep venous thrombosis): Code(s): I82.409 - Acute embolism and thrombosis of unspecified deep veins of unspecified lower extremity Status: Acute Assessment and Plan: Patient has evidence of bilateral [id number] DVTs. She also had an acute ischemic stroke with a possible hemorrhagic component on MRI, therefore Neurology is recommending IVC filter placement and to avoid oral anticoagulation at this time. She continues to be on dual-antiplatelet therapy with Plavix and aspirin. It is controversial if anticoagulation would even be indicated with a distal DVT. There is also the option of monitoring with ultrasound and considering further intervention if there is any propagation. Placing an IVC filter is not emergent and we would recommend evaluation by vascular surgery to further evaluate her anticoagulation and possible IVC filter placement, which c ould be done as an outpatient. (2) Acute ischemic vertebrobasilar artery cerebellar stroke: Code(s): I63.29 - Cerebral infarction due to unspecified occlusion or stenosis of other precerebral arteries Status: Acute Assessment and Plan: This is the 3rd stroke the patient has had in the past 6-7 weeks. Neurology following and patient is currently on Plavix. (3) CAD (coronary artery disease): Code(s): I25.10 - Atherosclerotic heart disease of [place] coronary artery without angina pectoris Status: Acute Assessment and Plan: Recent stent in August on dual-antiplatelet therapy. Also increasing her risks for holding antiplatelets for IVC filter placement. (4) Acute UTI: Code(s): N39.0 - Urinary tract infection, site not specified Status: Acute (5) PFO (patent foramen ovale): Code(s): Q21.12 - Patent foramen ovale Status: Acute Plan I have discussed the patient's case and plan of care with Dr. Araiza. History of Present Illness Consult details Consult date: 12/18/23 Reason for consult: other (IVC filter placement) Requesting physician: Darius Obrien MD Narrative: This is an 83-year-old woman with multiple medical problems, who presented to the ER with syncope and was admitted to [facility] [place] on 12/13/2023. She was treated for UTI, sepsis, and acute encephalopathy. She had bilateral lower extremity venous Doppler that showed bilateral [id number]-[id number] DVT in the right peroneal vein and left posterior tibial and peroneal veins. She had a head CT that showed no acute intracranial process. Echocardiogram without any evidence of PFO. She then had a brain MRI yesterday that showed acute infarct in left cerebellum with susceptibility artifact in this distribution that may be calcifications or blood products, as well as infarcts involving the left parietal lobe, left insula, and left occipital lobe, likely subacute or chronic. She is currently on Plavix. Neurology was consulted and recommends avoiding anticoagulation due to a hemorrhagic component with the cerebellar stroke. They recommended IVC filter placement. Our service was then consulted for placement of the IVC filter. She is now seen in the IMU with no family at the bedside. DVTs are asymptomatic. She is lethargic and has difficulty answering even simple questions. Therefore, history is obtained by review of the electronic medical record. 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 Dysphagia as late effect of stroke HTN (hypertension) Stroke Type 2 diabetes mellitus with hyperglycemia Social History Social History Smoking status: Never smoker Second hand tobacco smoke exposure: Yes Alcohol intake: never Substance use: never Substance use type: does not use Do You Feel Safe in your Home?: Yes Lack of Transportation: No Lack of Food: Never True Current Housing: I Have Housing Concerned About Future Housing: No Difficulty Paying Gas/Electric Bills: No Difficulty Paying for Meds: No Currently Unemployed: No Education: High School Diploma/GED Difficulty w/ Childcare or Family Care: No Living arrangements: with family Gender identity (if verbalized by the patient): Female Sexual Orientation (if Verbalized by the Patient): Straight or Heterosexual Spiritual care concerns: No Meds Home Medications and Allergies Home Medications Medication Instructions Recorded Confirmed Type aspirin 81 mg tablet,delayed 81 mg PO DAILY 11/14/23 12/13/23 History release clopidogrel 75 mg tablet 75 mg PO DAILY 11/14/23 12/13/23 History losartan 50 mg tablet 50 mg PO DAILY 11/14/23 12/13/23 History meclizine 25 mg tablet 25 mg PO BID PRN Dizziness Or 11/14/23 12/13/23 History Vertigo metformin 500 mg tablet 500 mg PO BIDWM 11/14/23 12/13/23 History methocarbamol 750 mg tablet 750 mg PO Q8H PRN muscle spasms 11/14/23 12/13/23 History metoprolol succinate 25 mg 25 mg PO DAILY 11/14/23 12/13/23 History tablet,extended release 24 hr ondansetron 4 mg disintegrating 4 mg PO Q8H PRN Nausea And Vomiting 11/14/23 12/13/23 History tablet acetaminophen 325 mg tablet 650 mg PO Q6H PRN Pain 11/16/23 12/13/23 History amlodipine 5 mg tablet 5 mg PO DAILY 12/13/23 12/13/23 History nystatin 100,000 unit/mL oral 5 ml buccal QID 12/13/23 12/13/23 History suspension rosuvastatin 20 mg tablet 20 mg PO HS 12/13/23 12/13/23 History isosorbide mononitrate 30 mg 30 mg PO DAILY 12/14/23 12/14/23 History tablet,extended release 24 hr Allergies Allergy/AdvReac Type Severity Reaction Status Date / Time No Known Allergies Allergy Verified 12/08/23 18:26 Vital Signs Vital Signs - 24 hr 12/17/23 16:03 12/17/23 21:44 12/17/23 20:00 Temperature 98.8 F Pulse Rate 69 77 77 Respiratory Rate 18 Blood Pressure 145/78 H Pulse Oximetry 98 12/18/23 00:00 12/18/23 04:00 12/18/23 06:00 Temperature 98.1 F Pulse Rate 62 67 71 Respiratory Rate 18 Blood Pressure 155/75 H Pulse Oximetry 95 12/18/23 09:00 12/18/23 12:00 12/18/23 08:00 Temperature Pulse Rate 73 70 67 Respiratory Rate Blood Pressure Pulse Oximetry Exam Const: General: no acute distress Nutritional Appearance: average body habitus Orientation/consciousness: oriented to person, No oriented to place, No oriented to time and lethargic HENMT: Head: normocephalic and atraumatic Ears: hearing grossly normal bilaterally Mouth: Yes moist mucous membranes Eyes: General: appearance normal, both eyes and all related structures Pupils: Equal, round and reactive pupils present Neck: Neck: normal visual inspection and full ROM Resp: Effort & Inspection: no respiratory distress Auscultation: clear to auscultation bilaterally Cardio: Rate: regular rate Rhythm: regular rhythm Heart sounds: S1 normal heart sound present and S2 normal heart sound present Peripheral pulses: Peripheral pulses 2+ throughout GI: Inspection: non-distended GI Palp: Yes Soft to palpation, No Tenderness to palpation present (GI), No Guarding due to palpation present (GI) and No Rebound tenderness present Auscultation: normal bowel sounds Skin: General skin exam: normal color Neuro: General: other (Right-sided weakness status post stroke) Speech: Expressive aphasia present Gait exam (Neuro): Unable to assess gait Extrem: General: normal to inspection, no calf tenderness and no edema Psych: Mental Status: mental status grossly normal Attitude: cooperative Insight: Good insight present (Psych) Judgement: Good judgement present (Psych) Results Labs 12/17/23 07:09 12/18/23 05:54 Labs: Abnormal lab results 12/17/23 12/17/23 12/17/23 Range/Units 16:34 19:49 20:27 POC Capillary Glucose 116 H 115 H (65-105) mg/dl Hemoglobin A1c 6.6 H (<5.7) % Vitamin B12 218.0 L (239-931) pg/mL 12/18/23 Range/Units 11:48 POC Capillary Glucose 109 H (65-105) mg/dl Hemoglobin A1c (<5.7) % Vitamin B12 (239-931) pg/mL Diabetes panel 12/17/23 12/18/23 Range/Units 19:49 05:54 Potassium 3.7 (3.4-5.0) mmol/L Hemoglobin A1c 6.6 H (<5.7) % Triglycerides 99 (<150) mg/dL Pituitary panel 12/18/23 Range/Units 05:54 Potassium 3.7 (3.4-5.0) mmol/L Adrenal panel 12/18/23 Range/Units 05:54 Potassium 3.7 (3.4-5.0) mmol/L All other labs normal. Imaging Additional studies: ITS Impressions Head CT 12/13/23 10:38 Impression: No intracranial hemorrhage, mass, or acute infarct. Atrophy and chronic white matter changes, as above. Chest X-Ray 12/13/23 10:39 IMPRESSION: 1. Mild atelectasis at left lung base. 2. Cardiomegaly. Chest/Abdomen/Pelvis CT 12/13/23 14:18 IMPRESSION: 1. Small sliding hiatal hernia. Venous Doppler Study 12/15/23 14:19 IMPRESSION: 1. Bilateral [id number] deep venous thrombosis in the right peroneal vein and left posterior tibial and peroneal veins. Head CT 12/16/23 11:55 IMPRESSION: 1. No acute intracranial process. 2. 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 3. Age-related changes including mild diffuse volume loss and mild scattered white matter hypoattenuation consistent with chronic small vessel ischemic disease. Brain MRI 12/17/23 12:09 IMPRESSION: 1. Acute infarct in left cerebellum. Susceptibility artifact in this distribution may be calcifications or blood products. 2. Infarcts involving the left parietal lobe, left insula, and left occipital lobe, likely subacute or chronic. 3. Old infarct in the right thalamus.
[2023-12-18 16:49] LABS: Glucose Point of Care 93 mg/dl (65-105)
[2023-12-18] MEDS: ROSUVASTATIN 20 MG TABLET PO (21:04)
[2023-12-19] VITALS (10 sets, daily range): BP systolic 126–154; BP diastolic 56–78; PULSE 62–88; RESP 16–18; TEMP 36.2–36.6; O2SAT 97
[2023-12-19 00:09] LABS: Glucose Point of Care 106 mg/dl (65-105)
[2023-12-19 07:36] LABS: Glucose Point of Care 87 mg/dl (65-105)
[2023-12-19] MEDS: LOSARTAN POTASSIUM 50 MG TABLET 100 MG PO (08:43)
[2023-12-19] MEDS: METOPROLOL SUCCINATE EXT REL 50 MG TABCR PO (08:43)
[2023-12-19] MEDS: POTASSIUM CHLORIDE 20 MEQ PACKET (FOR LIQUID) 40 MEQ PO (08:44)
[2023-12-19] MEDS: ASPIRIN 81 MG ENTERIC TABLET PO (08:44)
[2023-12-19] MEDS: ISOSORBIDE MONONITRATE 30 MG TAB.ER.24H PO (08:44)
[2023-12-19] MEDS: CLOPIDOGREL BISULFATE 75 MG TABLET PO (08:44)
[2023-12-19] MEDS: amLODIPine BESYLATE 10 MG TABLET PO (08:44)
[2023-12-19] MEDS: polyethylene glycoL 3350 17 GM POWD.PACK PO (08:44)
--- NOTE | 2023-12-19 09:41 | P.PNIM_ITS ---
Progress Note: A&P Assessment and Plan (1) Sepsis: Code(s): A41.9 - Sepsis, unspecified organism Status: Acute (2) Acute kidney injury: Code(s): N17.9 - Acute kidney failure, unspecified Status: Acute (3) Acute UTI: Code(s): N39.0 - Urinary tract infection, site not specified Status: Acute Plan SEPSIS - meets Sepsis criteria: HR, RR, leukocytosis 11,400 Likely resulting from UTI - lactic acid: 2.0, procalcitonin added - 30 mL/kg = 720, 1L bolus given - suspected source: UTI - started on ceftriaxone - blood cultures drawn on 12/12 - UA consistent with UTI - CXR showing no pneumonia - monitor hemodynamic stability and temp Resolved Acute encephalopathy -head CT: no intracranial hemorrhage mass or acute infarct. atrophy and chronic white matter changes, see report. Likely secondary to UTI, dehydration Neuro check Mental status improving, still not oriented x3, possible baseline due to recent stroke consult neurologist DVT Anticoagulation on hold due to recent stroke per neurologist Per rehab note, MRI done on 11/11 showed a new infarction not sure ischemic or intracranial bleeding stroke 12/14 venous Doppler Bilateral [id number] deep venous thrombosis in the right peroneal vein and left posterior tibial and peroneal veins. repeat CT head today consult neurologist regarding long-term oral anticoagulation, Neurologist recommend inferior vena cava future Consult general surgeon for evaluation and pacing inferior vena cava filter -notes reviewed: Patient has evidence of bilateral chyih-tmo-frig DVTs. She also had an acute ischemic stroke with a possible hemorrhagic component on MRI, therefore Neurology is recommending IVC filter placement and to avoid oral anticoagulation at this time. She continues to be on dual-antiplatelet therapy with Plavix and aspirin. It is controversial if anticoagulation would even be indicated with a distal DVT. There is also the option of monitoring with ultrasound and considering further intervention if there is any propagation. Placing an IVC filter is not emergent and we would recommend evaluation by vascular surgery to further evaluate her anticoagulation and possible IVC filter placement, which could be done as an outpatient. -will order PT/OT- and anticipate discharge tomorrow KAUSHAL Elevated BUN creatinine above baseline, upon arrival 28 over 1.2, baseline creatinine 0.8 December 09, 2023 Likely secondary to dehydration and UTI Received antibiotics Creatinine is trending down 0.8, resolved Discontinue IV fluid Hypokalemia Hypokalemia upon arrival, Replete with potassium chloride 40 mEq daily p.o. Follow-up BMP, magnesium level Corrected Elevated troponin EKG, initial: Sinus rhythm, rate 90, left axis deviation, possible anterior VT probably old, moderate T-wave abnormality consider lateral ischemia. No previous available for comparison. - CXR: Mild atelectasis at left lung base and cardiomegaly. - CT chest/abdomen/pelvis with con: small sliding hiatal hernia. - Troponin: Positive serial troponin no chest pain or shortness of breath - ASA 324 ordered and SL nitro PRN - suspect alteration is multifactorial secondary to hypoxia, UTI, and hypotension. - telemetry monitoring Follow-up echocardiogram, 1. Complete two-dimensional, color flow and Doppler transthoracic echocardiogram is performed. 2. Left ventricular chamber dimension is normal. 3. Left ventricular systolic function is normal, estimated at 60-65%. 4. There is moderate concentric increased left ventricular wall thickness. 5. The left ventricular diastolic function is grade I diastolic dysfunction. 6. E/e' 14 is mildly elevated. 7. Left atrial chamber dimension is moderately enlarged. 8. There is trace mitral valve regurgitation. 9. There is trace tricuspid valve regurgitation. 10. No pulmonary hypertension, estimated pulmonary arterial systolic pressure is 33 mmHg. 11. There is trivial pericardial effusion. consulted Cardiology, no further ischemic workup per pediatric ophthalmologist recommendation UTI (urinary tract infection): Qualifiers: Hematuria presence: without hematuria Urinary tract infection type: acute cystitis Qualified Code(s): N30.00 - Acute cystitis without hematuria Code(s): N39.0 - Urinary tract infection, site not specified Status: Acute Assessment and Plan: - UA: Cloudy, 2+ protein, trace ketones, 1+ blood, 2+ leuk esterase, 3-5 RBC, 21-50 WBC, no epithelial cells, 4+ bacteria - UC pending - no previous micro available for review - started on Ceftriaxone on 12/12 - rene exchanged on 12/12, originally placed post-CVA on 11/30 Type 2 diabetes mellitus: Qualifiers: Diabetes mellitus complication status: without complication Diabetes mellitus terminal make up operator insulin use: without fdc use Qualified Code(s): E11.9 - Type 2 diabetes mellitus without complications Code(s): E11.9 - Type 2 diabetes mellitus without complications Status: Chronic Assessment and Plan: - hypoglycemia protocol - POC blood glucose ACHS - home medication: Hold metformin - correct regimen ordered - low dose TIDWM, based off BMI - A1C ordered HTN (hypertension): Qualifiers: Hypertension type: primary hypertension Qualified Code(s): I10 - Essential (primary) hypertension Code(s): I10 - Essential (primary) hypertension Status: Chronic Assessment and Plan: Uncontrolled hypertension, Increased globulin 10 mg daily p.o., continue metoprolol 25 mg daily p.o., increase losartan 100 mg daily p.o. Start hydralazine p.r.n. IV with parameters Time Spent With Patient Time with patient: Greater than 35 minutes Subjective Date/time seen: 12/19/23 09:41 Interval history: Assuming care. Pt is seen and examined- patient has no new issue even overnight, resting with eyes closed, unable to provide reliable history. Patient has no obvious distress. daughter at the bedside- updtaed. will work with with pt/ot- anticipate dischargee tomorrow. ok to change diet to minced if pt would eat more, add diet suppliment. Review of Systems Review of Systems: All systems reviewed & are unremarkable except as noted in HPI and below Constitutional: Constitutional: Reports as per HPI and Reports no additional constitutional complaints Eyes: Eyes: Reports as per HPI and Reports no additional eye complaints ENT: Reports system reviewed and no additional complaints, except as documented and Reports as per HPI Cardiovascular: Cardiovascular: Reports as per HPI and Reports no additional cardiovascular complaints Respiratory: Respiratory: Reports as per HPI and Reports no additional r espiratory complaints Gastrointestinal: Gastrointestinal: Reports as per HPI and Reports no additional gastrointestinal complaints Genitourinary: Genitourinary: Reports no additional female genitourinary complaints and Reports as per HPI Musculoskeletal: Musculoskeletal: Reports no additional musculoskeletal complaints and Reports as per HPI Integumentary/Breasts: Skin/Breast: Reports system reviewed and no additional complaints, except as docu and Reports as per HPI Neurologic: Reports system reviewed and no additional complaints, except as documented and Reports as per HPI Psychiatric: Psychiatric: Reports no additional psychiatric complaints and Reports as per HPI Exam Narrative: General: In no acute distress, resting in bed Head: atraumatic, no encephalopathy Eyes: PERRLA, sclera clear ENT: moist mucous membranes, nasal passages clear Neck: supple, no JVD, no adenopathy, trachea midline Cardiac: Normal S1 and S2. No murmur, gallops or friction rubs, peripheral pulses intact. Respiratory: Lungs clear to auscultation, no adventitious lung sounds Gastrointestinal: soft, non-distended, non-tender, normoactive bowel sounds. : voiding without difficulty. Extremities: moves all extremities well, no edema, good ROM, strength 4/5 on right side, 5/5 strength on left side Skin: clean, dry, intact. No wounds or lesions. Neuro: Alert and oriented x2-3, cranial nerves intact, no neuro deficits. She does have some dysphagia and slurred speech. confused Psych:interactive Const: General: comfortable and no acute distress Other: , female, elderly, mildly ill-appearing HENMT: Face/Nose/Sinus: Normal nares present Mouth: Yes dry mucous membranes Eyes: General: appearance normal, both eyes and all related structures S clera: sclerae normal Pupils: Equal, round and reactive pupils present EOM: EOMs intact bilaterally Resp: Effort & Inspection: normal respiratory effort Auscultation: clear to auscultation bilaterally Cardio: Rate: regular rate Rhythm: regular rhythm Other: S1-S2 present without murmur, rub, ectopy GI: Other: Abdomen soft, nondistended, nontender. Normoactive bowel sounds in all quadrants. Urinary Catheter: Urinary Catheter: patent and draining Skin: General skin exam: normal color and no rashes or lesions noted Wounds: no wounds Neuro: Cranial nerves: Yes Equal, round and reactive pupils present Other: Patient with spontaneous eye opening. Regards. Able to nod yes and no to simple questions. Extrem: General: normal to inspection Psych: Other: Fair to poor insight and judgment are present, pleasant. Objective Data Vital Signs Vital Signs: Vital Signs - 24 hr 12/18/23 12:00 12/18/23 14:00 12/18/23 16:00 Temperature 97.1 F L Pulse Rate 70 72 83 Respiratory Rate 14 Blood Pressure 145/79 H Pulse Oximetry 97 12/18/23 20:00 12/18/23 22:00 12/19/23 00:00 Temperature 97.6 F Pulse Rate 67 78 80 Respiratory Rate 16 Blood Pressure 142/79 H Pulse Oximetry 98 12/19/23 06:00 12/19/23 04:00 Temperature 97.9 F Pulse Rate 70 75 Respiratory Rate 18 Blood Pressure 154/78 H Pulse Oximetry 97 Intake/Output Intake/Output: Intake & Output 12/16/23 12/17/23 12/18/23 12/19/23 23:59 23:59 23:59 23:59 Intake Total 1000 220 0 Output Total 1375 2900 1000 Balance -375 -7150 -1000 Meds/Results Medications: Active Medications Generic Name Dose Route Start Last Admin Trade Name Freq PRN Reason Stop Dose Admin Acetaminophen 650 mg 12/13/23 21:22 Acetaminophen 325 Mg Tablet PO Q6H PRN PAIN RATED 1-3 Amlodipine Besylate 10 mg 12/15/23 09:00 12/19/23 08:44 Amlodipine Besylate 10 Mg Tablet PO 10 mg DAILY SARA Administration Aspirin 81 mg 12/14/23 09:00 12/19/23 08:44 Aspirin 81 Mg Enteric Tablet PO 81 mg DAILY SARA Administration Clopidogrel Bisulfate 75 mg 12/14/23 09:00 12/19/23 08:44 Clopidogrel Bisulfate 75 Mg Tablet PO 75 mg DAILY SARA Administration Dextrose 12.5 gm 12/13/23 15:48 Dextrose 50% 25 Gm/50 Ml Syringe IV PUSH PRN PRN Hypoglycemia Protocol Glucagon 1 mg 12/13/23 15:48 Glucagon For Inj 1 Mg Vial IM PRN PRN Hypoglycemia Protocol Glucose 15 gm 12/13/23 15:48 Glucose Oral Gel 15 Gm Of Glucse In 37.5 Gm Tube PO PRN PRN Hypoglycemia Protocol Hydralazine HCl 10 mg 12/15/23 08:43 Hydralazine Hcl 20 Mg/Ml Vial IV PUSH Q6H PRN Blood Pressure - High Sodium Chloride 1,000 mls @ 75 mls/hr 12/13/23 14:45 12/18/23 11:23 Normal Saline Iv IV CONT 75 mls/hr .[id number] SARA Administration Dextrose 1,000 mls @ 100 mls/hr 12/13/23 15:48 Dextrose 5% 1,000 Ml IVPB PRN PRN Hypoglycemia Protocol Insulin Aspart 2 - 5 units 12/13/23 17:00 12/19/23 08:41 Insulin Aspart (*Bkc) 100 Units/Ml SUB-Q Not Given TIDWM SARA Protocol Isosorbide Mononitrate 30 mg 12/14/23 09:00 12/19/23 08:44 Isosorbide Mononitrate 30 Mg Tab.Er.24h PO 30 mg DAILY SARA Administration Losartan Potassium 100 mg 12/16/23 09:00 12/19/23 08:43 Losartan Potassium 50 Mg Tablet PO 100 mg DAILY SARA Administration Meclizine HCl 25 mg 12/13/23 21:22 Meclizine Hcl 25 Mg Tablet PO BID PRN Dizziness Or Vertigo Methocarbamol 750 mg 12/13/23 21:22 Methocarbamol 750 Mg Tablet PO Q8H PRN muscle spasms Metoprolol Succinate 50 mg 12/16/23 09:00 12/19/23 08:43 Metoprolol Succinate Ext Rel 50 Mg Tabcr PO 50 mg DAILY SARA Administration Ondansetron HCl 4 mg 12/13/23 21:22 Ondansetron Hcl Odt 4 Mg Tablet PO Q8H PRN Nausea And Vomiting Polyethylene Glycol 17 gm 12/17/23 13:35 12/19/23 08:44 Polyethylene Glycol 3350 17 Gm Powd.Pack PO 17 gm QAM SARA Administration Potassium Chloride 40 meq 12/15/23 09:00 12/19/23 08:44 Potassium Chloride 20 Meq Packet (For Liquid) PO 40 meq DAILY SARA Administration Rosuvastatin Calcium 20 mg 12/13/23 21:35 12/18/23 21:04 Rosuvastatin 20 Mg Tablet PO 20 mg HS SARA Administration Radiology Results: ITS Impressions Chest X-Ray 12/13/23 10:39 IMPRESSION: 1. Mild atelectasis at left lung base. 2. Cardiomegaly. Chest/Abdomen/Pelvis CT 12/13/23 14:18 IMPRESSION: 1. Small sliding hiatal hernia. Venous Doppler Study 12/15/23 14:19 IMPRESSION: 1. Bilateral [id number]-ldm-yirr deep venous thrombosis in the right peroneal vein and left posterior tibial and peroneal veins. Head CT 12/16/23 11:55 IMPRESSION: 1. No acute intracranial process. 2. 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 3. Age-related changes including mild diffuse volume loss and mild scattered white matter hypoattenuation consistent with chronic small vessel ischemic disease. Brain MRI 12/17/23 12:09 IMPRESSION: 1. Acute infarct in left cerebellum. Susceptibility artifact in this distribution may be calcifications or blood products. 2. Infarcts involving the left parietal lobe, left insula, and left occipital lobe, likely subacute or chronic. 3. Old infarct in the right thalamus. Labs Labs: Laboratory Results - last 24 hr 12/18/23 12/18/23 12/18/23 11:48 16:40 21:35 POC Capillary Glucose 109 H 93 106 H 12/19/23 07:34 POC Capillary Glucose 87 Quality VTE Prophylaxis VTE prophylaxis: mechanical ordered
--- NOTE | 2023-12-19 11:17 | P.PNGS_ITS ---
Progress Note: A&P Assessment and Plan (1) DVT (deep venous thrombosis): Code(s): I82.409 - Acute embolism and thrombosis of unspecified deep veins of unspecified lower extremity Status: Acute Assessment and Plan: edwardo peroneal vein DVTs, given med issues including multiple strokes in last few mos, would recommend conservative mgmt c repeat U/S in 2 wks, ok to return to rehab, would recommend vascular surgery f/u as outpt, this was d/w family in detail, will s/o, call c ?s, issues (2) Acute ischemic vertebrobasilar artery cerebellar stroke: Code(s): I63.29 - Cerebral infarction due to unspecified occlusion or stenosis of other precerebral arteries Status: Acute Assessment and Plan: mgmt per neurology Subjective Subjective Date/Time Seen: 12/19/23 11:17 Interval history: no acute issues, d/w family, wanting to return to rehab Review of Systems Review of Systems: All systems reviewed & are unremarkable except as noted in HPI and below Exam Const: General: cooperative, comfortable, no acute distress and ill appearing Resp: Auscultation: clear to auscultation bilaterally Cardio: Rate: regular rate Rhythm: regular rhythm GI: Inspection: normal to inspection Extrem: Other: no calf pain, swelling Objective Data Vital Signs Vital Signs: Vital Signs - 24 hr 12/18/23 12:00 12/18/23 14:00 12/18/23 16:00 Temperature 36.2 C L Pulse Rate 70 72 83 Respiratory Rate 14 Blood Pressure 145/79 H Pulse Oximetry 97 12/18/23 20:00 12/18/23 22:00 12/19/23 00:00 Temperature 36.4 C Pulse Rate 67 78 80 Respiratory Rate 16 Blood Pressure 142/79 H Pulse Oximetry 98 12/19/23 06:00 12/19/23 04:00 12/19/23 08:02 Temperature 36.6 C Pulse Rate 70 75 68 Respiratory Rate 18 Blood Pressure 154/78 H Pulse Oximetry 97 Intake/Output Intake/Output: Intake & Output 12/16/23 12/17/23 12/18/23 12/19/23 23:59 23:59 23:59 23:59 Intake Total 1000 220 120 Output Total 1375 2900 1000 Balance -193 -3346 -747 Meds/Results Medications: Active Medications Generic Name Dose Route Start Last Admin Trade Name Chrisq PRN Reason Stop Dose Admin Acetaminophen 650 mg 12/13/23 21:22 Acetaminophen 325 Mg Tablet PO Q6H PRN PAIN RATED 1-3 Amlodipine Besylate 10 mg 12/15/23 09:00 12/19/23 08:44 Amlodipine Besylate 10 Mg Tablet PO 10 mg DAILY SARA Administration Aspirin 81 mg 12/14/23 09:00 12/19/23 08:44 Aspirin 81 Mg Enteric Tablet PO 81 mg DAILY SARA Administration Clopidogrel Bisulfate 75 mg 12/14/23 09:00 12/19/23 08:44 Clopidogrel Bisulfate 75 Mg Tablet PO 75 mg DAILY SARA Administration Dextrose 12.5 gm 12/13/23 15:48 Dextrose 50% 25 Gm/50 Ml Syringe IV PUSH PRN PRN Hypoglycemia Protocol Glucagon 1 mg 12/13/23 15:48 Glucagon For Inj 1 Mg Vial IM PRN PRN Hypoglycemia Protocol Glucose 15 gm 12/13/23 15:48 Glucose Oral Gel 15 Gm Of Glucse In 37.5 Gm Tube PO PRN PRN Hypoglycemia Protocol Hydralazine HCl 10 mg 12/15/23 08:43 Hydralazine Hcl 20 Mg/Ml Vial IV PUSH Q6H PRN Blood Pressure - High Sodium Chloride 1,000 mls @ 75 mls/hr 12/13/23 14:45 12/18/23 11:23 Normal Saline Iv IV CONT 75 mls/hr .[id number] SARA Administration Dextrose 1,000 mls @ 100 mls/hr 12/13/23 15:48 Dextrose 5% 1,000 Ml IVPB PRN PRN Hypoglycemia Protocol Insulin Aspart 2 - 5 units 12/13/23 17:00 12/19/23 08:41 Insulin Aspart (*Bkc) 100 Units/Ml SUB-Q Not Given TIDWM [facility] Protocol Isosorbide Mononitrate 30 mg 12/14/23 09:00 12/19/23 08:44 Isosorbide Mononitrate 30 Mg Tab.Er.24h PO 30 mg DAILY SARA Administration Losartan Potassium 100 mg 12/16/23 09:00 12/19/23 08:43 Losartan Potassium 50 Mg Tablet PO 100 mg DAILY SARA Administration Meclizine HCl 25 mg 12/13/23 21:22 Meclizine Hcl 25 Mg Tablet PO BID PRN Dizziness Or Vertigo Methocarbamol 750 mg 12/13/23 21:22 Methocarbamol 750 Mg Tablet PO Q8H PRN muscle spasms Metoprolol Succinate 50 mg 12/16/23 09:00 12/19/23 08:43 Metoprolol Succinate Ext Rel 50 Mg Tabcr PO 50 mg DAILY SARA Administration Ondansetron HCl 4 mg 12/13/23 21:22 Ondansetron Hcl Odt 4 Mg Tablet PO Q8H PRN Nausea And Vomiting Polyethylene Glycol 17 gm 12/17/23 13:35 12/19/23 08:44 Polyethylene Glycol 3350 17 Gm Powd.Pack PO 17 gm QAM SARA Administration Potassium Chloride 40 meq 12/15/23 09:00 12/19/23 08:44 Potassium Chloride 20 Meq Packet (For Liquid) PO 40 meq DAILY SARA Administration Rosuvastatin Calcium 20 mg 12/13/23 21:35 12/18/23 21:04 Rosuvastatin 20 Mg Tablet PO 20 mg HS SARA Administration Radiology Results: ITS Impressions Chest X-Ray 12/13/23 10:39 IMPRESSION: 1. Mild atelectasis at left lung base. 2. Cardiomegaly. Chest/Abdomen/Pelvis CT 12/13/23 14:18 IMPRESSION: 1. Small sliding hiatal hernia. Venous Doppler Study 12/15/23 14:19 IMPRESSION: 1. Bilateral [id number] deep venous thrombosis in the right peroneal vein and left posterior tibial and peroneal veins. Head CT 12/16/23 11:55 IMPRESSION: 1. No acute intracranial process. 2. 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 3. Age-related changes including mild diffuse volume loss and mild scattered white matter hypoattenuation consistent with chronic small vessel ischemic disease. Brain MRI 12/17/23 12:09 IMPRESSION: 1. Acute infarct in left cerebellum. Susceptibility artifact in this distribution may be calcifications or blood products. 2. Infarcts involving the left parietal lobe, left insula, and left occipital lobe, likely subacute or chronic. 3. Old infarct in the right thalamus. Labs Labs: Laboratory Results - last 24 hr 12/18/23 12/18/23 12/18/23 11:48 16:40 21:35 POC Capillary Glucose 109 H 93 106 H 12/19/23 07:34 POC Capillary Glucose 87
[2023-12-19 11:54] LABS: Glucose Point of Care 109 mg/dl (65-105)
[2023-12-19] MEDS: SODIUM CHLORIDE 0.9% IV 1,000 ML 75 ML IV CONT (15:21)
[2023-12-19 16:36] LABS: Glucose Point of Care 78 mg/dl (65-105)
[2023-12-19] MEDS: ROSUVASTATIN 20 MG TABLET PO (20:25)
[2023-12-19 22:51] LABS: Glucose Point of Care 103 mg/dl (65-105)
[2023-12-20] VITALS (9 sets, daily range): BP systolic 125–131; BP diastolic 68–73; PULSE 62–90; RESP 13–16; TEMP 35.9–36.1; O2SAT 97–99
[2023-12-20] MEDS: SODIUM CHLORIDE 0.9% IV 1,000 ML 75 ML IV CONT ×2 (04:40→21:26)
[2023-12-20 06:14] LABS: Glucose Point of Care 89 mg/dl (65-105)
[2023-12-20 06:58] LABS: Potassium 3.5 mmol/L (3.4-5.0)
[2023-12-20 08:11] LABS: Glucose Point of Care 90 mg/dl (65-105)
[2023-12-20] MEDS: amLODIPine BESYLATE 10 MG TABLET PO (08:33)
[2023-12-20] MEDS: ASPIRIN 81 MG ENTERIC TABLET PO (08:33)
[2023-12-20] MEDS: CLOPIDOGREL BISULFATE 75 MG TABLET PO (08:33)
[2023-12-20] MEDS: POTASSIUM CHLORIDE 20 MEQ PACKET (FOR LIQUID) 40 MEQ PO (08:34)
[2023-12-20] MEDS: METOPROLOL SUCCINATE EXT REL 50 MG TABCR PO (08:34)
[2023-12-20] MEDS: polyethylene glycoL 3350 17 GM POWD.PACK PO (08:34)
[2023-12-20] MEDS: LOSARTAN POTASSIUM 50 MG TABLET 100 MG PO (08:34)
[2023-12-20] MEDS: ISOSORBIDE MONONITRATE 30 MG TAB.ER.24H PO (08:34)
--- NOTE | 2023-12-20 11:12 | PCNFU ---
Nutrition Follow-Up Complete: Inadequate energy intake related to appetite as evidenced by charted intake and nursing report Goal:PO intake 50% or greater of meals and supplements Pt current nutrition is Pureed Diabetic consistent carb, Ensure compact TID. Nutrition recommendation: Encourage po intake as much as possible Last recorded weight is 58.8 kg. Bowel Motility: No BM recorded at this time Labs Reviewed: Glu:109 Meds Noted:novolog, KCL Skin: no skin issues noted Additional Notes: Pt continues on a pureed diabetic diet, intake remains poor at 0-25% of meals. Pt asleep during assessment. Encourage po intake as much as possible, supplements TID. Monitor intake, wt, labs. Follow up in 5 days.
[2023-12-20 11:30] LABS: Glucose Point of Care 125 mg/dl (65-105)
--- NOTE | 2023-12-20 12:01 | PCPTNOTE ---
attempted PT evaluation, pt would not open her eyes to look at therapist, did respond once with a head nod but refused to respond to other questions and turned away from PT to go back to sleep, pt educated on the importance of participating in physical therapy, will follow
--- NOTE | 2023-12-20 16:13 | PM.IMPN ---
Progress Note: A&P Assessment and Plan (1) Sepsis: Code(s): A41.9 - Sepsis, unspecified organism Status: Acute (2) Acute kidney injury: Code(s): N17.9 - Acute kidney failure, unspecified Status: Acute (3) Acute UTI: Code(s): N39.0 - Urinary tract infection, site not specified Status: Acute Plan SEPSIS - meets Sepsis criteria: HR, RR, leukocytosis 11,400 Likely resulting from UTI - lactic acid: 2.0, procalcitonin added - 30 mL/kg = 720, 1L bolus given - suspected source: UTI - started on ceftriaxone - blood cultures drawn on 12/12 - UA consistent with UTI - CXR showing no pneumonia - monitor hemodynamic stability and temp Resolved Acute encephalopathy -head CT: no intracranial hemorrhage mass or acute infarct. atrophy and chronic white matter changes, see report. Likely secondary to UTI, dehydration Neuro check Mental status improving, still not oriented x3, possible baseline due to recent stroke consult neurologist DVT Anticoagulation on hold due to recent stroke per neurologist Per rehab note, MRI done on 11/11 showed a new infarction not sure ischemic or intracranial bleeding stroke 12/14 venous Doppler Bilateral [id number] deep venous thrombosis in the right peroneal vein and left posterior tibial and peroneal veins. repeat CT head today consult neurologist regarding long-term oral anticoagulation, Neurologist recommend inferior vena cava future Consult general surgeon for evaluation and pacing inferior vena cava filter -notes reviewed: Patient has evidence of bilateral [id number] DVTs. She also had an acute ischemic stroke with a possible hemorrhagic component on MRI, therefore Neurology is recommending IVC filter placement and to avoid oral anticoagulation at this time. She continues to be on dual-antiplatelet therapy with Plavix and aspirin. It is controversial if anticoagulation would even be indicated with a distal DVT. There is also the option of monitoring with ultrasound and considering further intervention if there is any propagation. Placing an IVC filter is not emergent and we would recommend evaluation by vascular surgery to further evaluate her anticoagulation and possible IVC filter placement, which could be done as an outpatient. -will order PT/OT- and anticipate discharge tomorrow KAUSHAL Elevated BUN creatinine above baseline, upon arrival 28 over 1.2, baseline creatinine 0.8 December 09, 2023 Likely secondary to dehydration and UTI Received antibiotics Creatinine is trending down 0.8, resolved Discontinue IV fluid Hypokalemia Hypokalemia upon arrival, Replete with potassium chloride 40 mEq daily p.o. Follow-up BMP, magnesium level Corrected Elevated troponin EKG, initial: Sinus rhythm, rate 90, left axis deviation, possible anterior NM probably old, moderate T-wave abnormality consider lateral ischemia. No previous available for comparison. - CXR: Mild atelectasis at left lung base and cardiomegaly. - CT chest/abdomen/pelvis with con: small sliding hiatal hernia. - Troponin: Positive serial troponin no chest pain or shortness of breath - ASA 324 ordered and SL nitro PRN - suspect alteration is multifactorial secondary to hypoxia, UTI, and hypotension. - telemetry monitoring Follow-up echocardiogram, 1. Complete two-dimensional, color flow and Doppler transthoracic echocardiogram is performed. 2. Left ventricular chamber dimension is normal. 3. Left ventricular systolic function is normal, estimated at 60-65%. 4. There is moderate concentric increased left ventricular wall thickness. 5. The left ventricular diastolic function is grade I diastolic dysfunction. 6. E/e' 14 is mildly elevated. 7. Left atrial chamber dimension is moderately enlarged. 8. There is trace mitral valve regurgitation. 9. There is trace tricuspid valve regurgitation. 10. No pulmonary hypertension, estimated pulmonary arterial systolic pressure is 33 mmHg. 11. There is trivial pericardial effusion. consulted Cardiology, no further ischemic workup per manufacturing applications engineer recommendation UTI (urinary tract infection): Qualifiers: Hematuria presence: without hematuria Urinary tract infection type: acute cystitis Qualified Code(s): N30.00 - Acute cystitis without hematuria Code(s): N39.0 - Urinary tract infection, site not specified Status: Acute Assessment and Plan: - UA: Cloudy, 2+ protein, trace ketones, 1+ blood, 2+ leuk esterase, 3-5 RBC, 21-50 WBC, no epithelial cells, 4+ bacteria - UC pending - no previous micro available for review - started on Ceftriaxone on 12/12 - rene exchanged on 12/12, originally placed post-CVA on 11/30 completed tx Type 2 diabetes mellitus: Qualifiers: Diabetes mellitus complication status: without complication Diabetes mellitus [facility] insulin use: without intermediate manager use Qualified Code(s): E11.9 - Type 2 diabetes mellitus without complications Code(s): E11.9 - Type 2 diabetes mellitus without complications Status: Chronic Assessment and Plan: - hypoglycemia protocol - POC blood glucose ACHS - home medication: Hold metformin - correct regimen ordered - low dose TIDWM, based off BMI - A1C ordered HTN (hypertension): Qualifiers: Hypertension type: primary hypertension Qualified Code(s): I10 - Essential (primary) hypertension Code(s): I10 - Essential (primary) hypertension Status: Chronic Assessment and Plan: Uncontrolled hypertension, Increased globulin 10 mg daily p.o., continue metoprolol 25 mg daily p.o., increase losartan 100 mg daily p.o. Start hydralazine p.r.n. IV with parameters Time Spent With Patient Time with patient: Greater than 35 minutes Subjective Date/time seen: 12/20/23 16:13 Interval history: Pt is seen and examined- patient has no new issue even overnight, resting. PT/OT is ordered. Once eval is completed- anticipate discharge. denies pain, n/v Review of Systems Review of Systems: All systems reviewed & are unremarkable except as noted in HPI and below ROS unobtainable: Yes unobtainable due to mental status Constitutional: Constitutional: Reports as per HPI and Reports no additional constitutional complaints Eyes: Eyes: Reports as per HPI and Reports no additional eye complaints ENT: Reports system reviewed and no additional complaints, except as documented and Reports as per HPI Cardiovascular: Cardiovascular: Reports as per HPI and Reports no additional cardiovascular complaints Respiratory: Respiratory: Reports as per HPI and Reports no additional respiratory complaints Gastrointestinal: Gastrointestinal: Reports as per HPI and Reports no additional gastrointestinal complaints Genitourinary: Genitourinary: Reports no additional female genitourinary complaints and Reports as per HPI Musculoskeletal: Musculoskeletal: Reports no additional musculoskeletal complaints and Reports as per HPI Integumentary/Breasts: Skin/Breast: Reports system reviewed and no additional complaints, except as docu and Reports as per HPI Neurologic: Reports system reviewed and no additional complaints, except as documented and Reports as per HPI Psychiatric: Psychiatric: Reports no additional psychiatric complaints and Reports as per HPI Exam Narrative: General: In no acute distress, resting in bed Head: atraumatic, no encephalopathy Eyes: PERRLA, sclera clear ENT: moist mucous membranes, nasal passages clear Neck: supple, no JVD, no adenopathy, trachea midline Cardiac: Normal S1 and S2. No murmur, gallops or friction rubs, peripheral pulses intact. Respiratory: Lungs clear to auscultation, no adventitious lung sounds Gastrointestinal: soft, non-distended, non-tender, normoactive bowel sounds. : voiding without difficulty. Extremities: moves all extremities well, no edema, good ROM, strength 4/5 on right side, 5/5 strength on left side Skin: clean, dry, intact. No wounds or lesions. Neuro: Alert and oriented x2-3, cranial nerves intact, no neuro deficits. She does have some dysphagia and slurred speech. confused Psych:interactive Const: General: comfortable and no acute distress Other: , female, elderly, mildly ill-appearing HENMT: Face/Nose/Sinus: Normal nares present Mouth: Yes dry mucous membranes Eyes: General: appearance normal, both eyes and all related structures Sclera: sclerae normal Pupils: Equal, round and reactive pupils present EOM: EOMs intact bilaterally Resp: Effort & Inspection: normal respiratory effort Auscultation: clear to auscultation bilaterally Cardio: Rate: regular rate Rhythm: regular rhythm Other: S1-S2 present without murmur, rub, ectopy GI: Other: Abdomen soft, nondistended, nontender. Normoactive bowel sounds in all quadrants. Urinary Catheter: Urinary Catheter: patent and draining Skin: General skin exam: normal color and no rashes or lesions noted Wounds: no wounds Neuro: Cranial nerves: Yes Equal, round and reactive pupils present Other: Patient with spontaneous eye opening. Regards. Able to nod yes and no to simple questions. Extrem: General: normal to inspection Psych: Other: Fair to poor insight and judgment are present, pleasant. Objective Data Vital Signs Vital Signs: Vital Signs - 24 hr 12/19/23 22:00 12/19/23 20:00 12/20/23 00:00 Temperature 97.7 F Pulse Rate 88 71 72 Respiratory Rate 18 Blood Pressure 135/56 L Pulse Oximetry 97 Oxygen Delivery 12/20/23 04:00 12/19/23 21:37 12/20/23 08:34 Temperature Pulse Rate 90 74 Respiratory Rate Blood Pressure Pulse Oximetry 97 Oxygen Delivery Room Air 12/20/23 08:00 12/20/23 08:00 12/20/23 12:00 Temperature Pulse Rate 75 76 Respiratory Rate Blood Pressure Pulse Oximetry 97 Oxygen Delivery Room Air 12/20/23 13:53 12/20/23 13:57 12/20/23 16:00 Temperature 96.7 F L Pulse Rate 73 62 Respiratory Rate 16 Blood Pressure 125/73 Pulse Oximetry 97 Oxygen Delivery Room Air Intake/Output Intake/Output: Intake & Output 12/17/23 12/18/23 12/19/23 12/20/23 23:59 23:59 23:59 23:59 Intake Total 1182 045 1346 1318.8 Output Total 1375 2900 1750 600 Iaysnmi -499 -2122 -961 718.8 Meds/Results Medications: Active Medications Generic Name Dose Route Start Last Admin Trade Name Freq PRN Reason Stop Dose Admin Acetaminophen 650 mg 12/13/23 21:22 Acetaminophen 325 Mg Tablet PO Q6H PRN PAIN RATED 1-3 Amlodipine Besylate 10 mg 12/15/23 09:00 12/20/23 08:33 Amlodipine Besylate 10 Mg Tablet PO 10 mg DAILY SARA Administration Aspirin 81 mg 12/14/23 09:00 12/20/23 08:33 Aspirin 81 Mg Enteric Tablet PO 81 mg DAILY SARA Administration Clopidogrel Bisulfate 75 mg 12/14/23 09:00 12/20/23 08:33 Clopidogrel Bisulfate 75 Mg Tablet PO 75 mg DAILY SARA Administration Dextrose 12.5 gm 12/13/23 15:48 Dextrose 50% 25 Gm/50 Ml Syringe IV PUSH PRN PRN Hypoglycemia Protocol Glucagon 1 mg 12/13/23 15:48 Glucagon For Inj 1 Mg Vial IM PRN PRN Hypoglycemia Protocol Glucose 15 gm 12/13/23 15:48 Glucose Oral Gel 15 Gm Of Glucse In 37.5 Gm Tube PO PRN PRN Hypoglycemia Protocol Hydralazine HCl 10 mg 12/15/23 08:43 Hydralazine Hcl 20 Mg/Ml Vial IV PUSH Q6H PRN Blood Pressure - High Sodium Chloride 1,000 mls @ 75 mls/hr 12/13/23 14:45 12/20/23 04:40 Normal Saline Iv IV CONT 75 mls/hr .[id number] SARA Administration Dextrose 1,000 mls @ 100 mls/hr 12/13/23 15:48 Dextrose 5% 1,000 Ml IVPB PRN PRN Hypoglycemia Protocol Insulin Aspart 2 - 5 units 12/13/23 17:00 12/20/23 11:43 Insulin Aspart (*Bkc) 100 Units/Ml SUB-Q Not Given TIDWM SARA Protocol Isosorbide Mononitrate 30 mg 12/14/23 09:00 12/20/23 08:34 Isosorbide Mononitrate 30 Mg Tab.Er.24h PO 30 mg DAILY SARA Administration Losartan Potassium 100 mg 12/16/23 09:00 12/20/23 08:34 Losartan Potassium 50 Mg Tablet PO 100 mg DAILY SARA Administration Meclizine HCl 25 mg 12/13/23 21:22 Meclizine Hcl 25 Mg Tablet PO BID PRN Dizziness Or Vertigo Methocarbamol 750 mg 12/13/23 21:22 Methocarbamol 750 Mg Tablet PO Q8H PRN muscle spasms Metoprolol Succinate 50 mg 12/16/23 09:00 12/20/23 08:34 Metoprolol Succinate Ext Rel 50 Mg Tabcr PO 50 mg DAILY SARA Administration Ondansetron HCl 4 mg 12/13/23 21:22 Ondansetron Hcl Odt 4 Mg Tablet PO Q8H PRN Nausea And Vomiting Polyethylene Glycol 17 gm 12/17/23 13:35 12/20/23 08:34 Polyethylene Glycol 3350 17 Gm Powd.Pack PO 17 gm QAM SARA Administration Potassium Chloride 40 meq 12/15/23 09:00 12/20/23 08:34 Potassium Chloride 20 Meq Packet (For Liquid) PO 40 meq DAILY SARA Administration Rosuvastatin Calcium 20 mg 12/13/23 21:35 12/19/23 20:25 Rosuvastatin 20 Mg Tablet PO 20 mg HS SARA Administration Radiology Results: ITS Impressions Chest X-Ray 12/13/23 10:39 IMPRESSION: 1. Mild atelectasis at left lung base. 2. Cardiomegaly. Chest/Abdomen/Pelvis CT 12/13/23 14:18 IMPRESSION: 1. Small sliding hiatal hernia. Venous Doppler Study 12/15/23 14:19 IMPRESSION: 1. Bilateral [id number] deep venous thrombosis in the right peroneal vein and left posterior tibial and peroneal veins. Head CT 12/16/23 11:55 IMPRESSION: 1. No acute intracranial process. 2. 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 3. Age-related changes including mild diffuse volume loss and mild scattered white matter hypoattenuation consistent with chronic small vessel ischemic disease. Brain MRI 12/17/23 12:09 IMPRESSION: 1. Acute infarct in left cerebellum. Susceptibility artifact in this distribution may be calcifications or blood products. 2. Infarcts involving the left parietal lobe, left insula, and left occipital lobe, likely subacute or chronic. 3. Old infarct in the right thalamus. Labs Labs: Laboratory Results - last 24 hr 12/19/23 12/19/23 12/20/23 16:34 22:47 05:57 Potassium 3.5 POC Capillary Glucose 78 103 12/20/23 12/20/23 12/20/23 06:12 07:55 11:22 Potassium POC Capillary Glucose 89 90 125 H Quality VTE Prophylaxis VTE prophylaxis: mechanical ordered
[2023-12-20 16:24] LABS: Glucose Point of Care 131 mg/dl (65-105)
[2023-12-20 16:42] LABS: Hematocrit 29.9 % (37.0-47.0); Mean Corpuscular HGB Conc 33.4 g/dl (32-36); Mean Corpuscular Hemoglobin 30.7 pg (26-34); Mean Corpuscular Volume 91.7 fl (80-100); Mean Platelet Volume 10.1 fl (7.4-10.4); Platelet Count Result 264 k/mm3 (150-375); Red Blood Count 3.26 M/mm3 (4.2-5.4); Red Cell Distribution Width 12.7 % (11.5-14.5); White Blood Count 6.2 K/mm3 (4.5-10.0)
[2023-12-20 16:55] LABS: Anion Gap 10 mmol/L (4-12); Blood Urea Nitrogen 12 mg/dL (7-17); Calcium 8.5 mg/dL (8.4-10.2); Carbon Dioxide 20 mmol/L (22-30); Chloride 104 mmol/L (98-107); Estimated CRCL calculation 44 ml/min; Estimated Glomerular Filt Rate > 60; Glucose 124 mg/dL (65-110); Potassium 3.7 mmol/L (3.4-5.0); Sodium 134 mmol/L (137-145)
[2023-12-20 19:55] LABS: Glucose Point of Care 116 mg/dl (65-105)
[2023-12-20] MEDS: ROSUVASTATIN 20 MG TABLET PO (21:26)
[2023-12-20 23:52] LABS: Glucose Point of Care 103 mg/dl (65-105)
[2023-12-21] VITALS (10 sets, daily range): BP systolic 110–154; BP diastolic 72–78; PULSE 66–81; RESP 13–16; TEMP 36.2–36.3; O2SAT 95–100
[2023-12-21 07:36] LABS: Glucose Point of Care 79 mg/dl (65-105)
[2023-12-21] MEDS: METOPROLOL SUCCINATE EXT REL 50 MG TABCR PO (08:21)
[2023-12-21] MEDS: amLODIPine BESYLATE 10 MG TABLET PO (08:21)
[2023-12-21] MEDS: ASPIRIN 81 MG ENTERIC TABLET PO (08:21)
[2023-12-21] MEDS: ISOSORBIDE MONONITRATE 30 MG TAB.ER.24H PO (08:21)
[2023-12-21] MEDS: LOSARTAN POTASSIUM 50 MG TABLET 100 MG PO (08:21)
[2023-12-21] MEDS: POTASSIUM CHLORIDE 20 MEQ PACKET (FOR LIQUID) 40 MEQ PO (08:21)
[2023-12-21] MEDS: polyethylene glycoL 3350 17 GM POWD.PACK PO (08:21)
[2023-12-21] MEDS: CLOPIDOGREL BISULFATE 75 MG TABLET PO (08:21)
[2023-12-21] MEDS: SODIUM CHLORIDE 0.9% IV 1,000 ML 75 ML IV CONT ×2 (08:51→22:32)
[2023-12-21 11:40] LABS: Glucose Point of Care 174 mg/dl (65-105)
--- NOTE | 2023-12-21 14:59 | PM.IMPN ---
Progress Note: A&P Assessment and Plan (1) Sepsis: Code(s): A41.9 - Sepsis, unspecified organism Status: Acute (2) Acute kidney injury: Code(s): N17.9 - Acute kidney failure, unspecified Status: Acute (3) Acute UTI: Code(s): N39.0 - Urinary tract infection, site not specified Status: Acute Plan SEPSIS - meets Sepsis criteria: HR, RR, leukocytosis 11,400 Likely resulting from UTI - lactic acid: 2.0, procalcitonin added - 30 mL/kg = 720, 1L bolus given - suspected source: UTI - started on ceftriaxone - blood cultures drawn on 12/12 - UA consistent with UTI - CXR showing no pneumonia - monitor hemodynamic stability and temp Resolved Acute encephalopathy -head CT: no intracranial hemorrhage mass or acute infarct. atrophy and chronic white matter changes, see report. Likely secondary to UTI, dehydration Neuro check Mental status improving, still not oriented x3, possible baseline due to recent stroke consult neurologist DVT Anticoagulation on hold due to recent stroke per neurologist Per rehab note, MRI done on 11/11 showed a new infarction not sure ischemic or intracranial bleeding stroke 12/14 venous Doppler Bilateral [id number] deep venous thrombosis in the right peroneal vein and left posterior tibial and peroneal veins. repeat CT head today consult neurologist regarding long-term oral anticoagulation, Neurologist recommend inferior vena cava future Consult general surgeon for evaluation and pacing inferior vena cava filter -notes reviewed: Patient has evidence of bilateral [id number] DVTs. She also had an acute ischemic stroke with a possible hemorrhagic component on MRI, therefore Neurology is recommending IVC filter placement and to avoid oral anticoagulation at this time. She continues to be on dual-antiplatelet therapy with Plavix and aspirin. It is controversial if anticoagulation would even be indicated with a distal DVT. There is also the option of monitoring with ultrasound and considering further intervention if there is any propagation. Placing an IVC filter is not emergent and we would recommend evaluation by vascular surgery to further evaluate her anticoagulation and possible IVC filter placement, which could be done as an outpatient. -will order PT/OT- and anticipate discharge tomorrow/in few days- pending placement KAUSHAL Elevated BUN creatinine above baseline, upon arrival 28 over 1.2, baseline creatinine 0.8 December 09, 2023 Likely secondary to dehydration and UTI Received antibiotics Creatinine is trending down 0.8, resolved Discontinue IV fluid Hypokalemia Hypokalemia upon arrival, Replete with potassium chloride 40 mEq daily p.o. Follow-up BMP, magnesium level Corrected Elevated troponin EKG, initial: Sinus rhythm, rate 90, left axis deviation, possible anterior [place] probably old, moderate T-wave abnormality consider lateral ischemia. No previous available for comparison. - CXR: Mild atelectasis at left lung base and cardiomegaly. - CT chest/abdomen/pelvis with con: small sliding hiatal hernia. - Troponin: Positive serial troponin no chest pain or shortness of breath - ASA 324 ordered and SL nitro PRN - suspect alteration is multifactorial secondary to hypoxia, UTI, and hypotension. - telemetry monitoring Follow-up echocardiogram, 1. Complete two-dimensional, color flow and Doppler transthoracic echocardiogram is performed. 2. Left ventricular chamber dimension is normal. 3. Left ventricular systolic function is normal, estimated at 60-65%. 4. There is moderate concentric increased left ventricular wall thickness. 5. The left ventricular diastolic function is grade I diastolic dysfunction. 6. E/e' 14 is mildly elevated. 7. Left atrial chamber dimension is moderately enlarged. 8. There is trace mitral valve regurgitation. 9. There is trace tricuspid valve regurgitation. 10. No pulmonary hypertension, estimated pulmonary arterial systolic pressure is 33 mmHg. 11. There is trivial pericardial effusion. consulted Cardiology, no further ischemic workup per manager of broadcast content recommendation UTI (urinary tract infection): Qualifiers: Hematuria presence: without hematuria Urinary tract infection type: acute cystitis Qualified Code(s): N30.00 - Acute cystitis without hematuria Code(s): N39.0 - Urinary tract infection, site not specified Status: Acute Assessment and Plan: - UA: Cloudy, 2+ protein, trace ketones, 1+ blood, 2+ leuk esterase, 3-5 RBC, 21-50 WBC, no epithelial cells, 4+ bacteria - UC pending - no previous micro available for review - started on Ceftriaxone on 12/12 - rene exchanged on 12/12, originally placed post-CVA on 11/30 completed tx Type 2 diabetes mellitus: Qualifiers: Diabetes mellitus complication status: without complication Diabetes mellitus manager long term care insulin use: without alf use Qualified Code(s): E11.9 - Type 2 diabetes mellitus without complications Code(s): E11.9 - Type 2 diabetes mellitus without complications Status: Chronic Assessment and Plan: - hypoglycemia protocol - POC blood glucose ACHS - home medication: Hold metformin - correct regimen ordered - low dose TIDWM, based off BMI - A1C ordered HTN (hypertension): Qualifiers: Hypertension type: primary hypertension Qualified Code(s): I10 - Essential (primary) hypertension Code(s): I10 - Essential (primary) hypertension Status: Chronic Assessment and Plan: Uncontrolled hypertension, Increased globulin 10 mg daily p.o., continue metoprolol 25 mg daily p.o., increase losartan 100 mg daily p.o. Start hydralazine p.r.n. IV with parameters Subjective Date/time seen: 12/21/23 14:59 Interval history: seen and examined- worked with pt/ot- but got very tired. was able to get up to the chair for meals. working with care coordination fopr placement Review of Systems Review of Systems: All systems reviewed & are unremarkable except as noted in HPI and below ROS unobtainable: Yes unobtainable due to mental status Constitutional: Constitutional: Reports as per HPI and Reports no additional constitutional complaints Eyes: Eyes: Reports as per HPI and Reports no additional eye complaints ENT: Reports system reviewed and no additional complaints, except as documented and Reports as per HPI Cardiovascular: Cardiovascular: Reports as per HPI and Reports no additional cardiovascular complaints Respiratory: Respiratory: Reports as per HPI and Reports no additional respiratory complaints Gastrointestinal: Gastrointestinal: Reports as per HPI and Reports no additional gastrointestinal complaints Genitourinary: Genitourinary: Reports no additional female genitourinary complaints and Reports as per HPI Musculoskeletal: Musculoskeletal: Reports no additional musculoskeletal complaints and Reports as per HPI Integumentary/Breasts: Skin/Breast: Reports system reviewed and no additional complaints, except as docu and Reports as per HPI Neurologic: Reports system reviewed and no additional complaints, except as documented and Reports as per HPI Psychiatric: Psychiatric: Reports no additional psychiatric complaints and Reports as per HPI Exam Narrative: General: In no acute distress, resting in bed Head: atraumatic, no encephalopathy Eyes: PERRLA, sclera clear ENT: moist mucous membranes, nasal passages clear Neck: supple, no JVD, no adenopathy, trachea midline Cardiac: Normal S1 and S2. No murmur, gallops or friction rubs, peripheral pulses intact. Respiratory: Lungs clear to auscultation, no adventitious lung sounds Gastrointestinal: soft, non-distended, non-tender, normoactive bowel sounds. : voiding without difficulty. Extremities: moves all extremities well, no edema, good ROM, strength 4/5 on right side, 5/5 strength on left side Skin: clean, dry, intact. No wounds or lesions. Neuro: Alert and oriented x2-3, cranial nerves intact, no neuro deficits. She does have some dysphagia and slurred speech. confused Psych:interactive Const: General: comfortable and no acute distress Other: , female, elderly, mildly ill-appearing HENMT: Face/Nose/Sinus: Normal nares present Mouth: Yes dry mucous membranes Eyes: General: appearance normal, both eyes and all related structures Sclera: sclerae normal Pupils: Equal, round and reactive pupils present EOM: EOMs intact bilaterally Resp: Effort & Inspection: normal respiratory effort Auscultation: clear to auscultation bilaterally Cardio: Rate: regular rate Rhythm: regular rhythm Other: S1-S2 present without murmur, rub, ectopy GI: Other: Abdomen soft, nondistended, nontender. Normoactive bowel sounds in all quadrants. Urinary Catheter: Urinary Catheter: patent and draining Skin: General skin exam: normal color and no rashes or lesions noted Wounds: no wounds Neuro: Cranial nerves: Yes Equal, round and reactive pupils present Other: Patient with spontaneous eye opening. Regards. Able to nod yes and no to simple questions. Extrem: General: normal to inspection Psych: Other: Fair to poor insight and judgment are present, pleasant. Objective Data Vital Signs Vital Signs: Vital Signs - 24 hr 12/20/23 16:00 12/20/23 20:53 12/20/23 20:00 Temperature 96.9 F L Pulse Rate 62 75 67 Respiratory Rate 13 Blood Pressure 131/68 Pulse Oximetry 99 Oxygen Delivery 12/21/23 00:00 12/21/23 04:00 12/21/23 05:36 Temperature 97.1 F L Pulse Rate 79 76 78 Respiratory Rate 13 Blood Pressure 154/72 H Pulse Oximetry 95 Oxygen Delivery 12/21/23 08:21 12/21/23 08:00 12/21/23 08:00 Temperature Pulse Rate 70 81 Respiratory Rate Blood Pressure Pulse Oximetry 95 Oxygen Delivery Room Air 12/21/23 10:35 12/21/23 12:00 12/21/23 13:55 Temperature 97.4 F L Pulse Rate 76 66 Respiratory Rate 16 Blood Pressure 110/74 Pulse Oximetry 100 Oxygen Delivery Room Air Intake/Output Intake/Output: Intake & Output 12/18/23 12/19/23 12/20/23 12/21/23 23:59 23:59 23:59 23:59 Intake Total 220 1140 2468.8 1386.3 Output Total 2900 1750 1300 1300 Balance -2680 -610 1168.8 86.3 Meds/Results Medications: Active Medications Generic Name Dose Route Start Last Admin Trade Name Freq PRN Reason Stop Dose Admin Acetaminophen 650 mg 12/13/23 21:22 Acetaminophen 325 Mg Tablet PO Q6H PRN PAIN RATED 1-3 Amlodipine Besylate 10 mg 12/15/23 09:00 12/21/23 08:21 Amlodipine Besylate 10 Mg Tablet PO 10 mg DAILY SARA Administration Aspirin 81 mg 12/14/23 09:00 12/21/23 08:21 Aspirin 81 Mg Enteric Tablet PO 81 mg DAILY SARA Administration Clopidogrel Bisulfate 75 mg 12/14/23 09:00 12/21/23 08:21 Clopidogrel Bisulfate 75 Mg Tablet PO 75 mg DAILY SARA Administration Dextrose 12.5 gm 12/13/23 15:48 Dextrose 50% 25 Gm/50 Ml Syringe IV PUSH PRN PRN Hypoglycemia Protocol Glucagon 1 mg 12/13/23 15:48 Glucagon For Inj 1 Mg Vial IM PRN PRN Hypoglycemia Protocol Glucose 15 gm 12/13/23 15:48 Glucose Oral Gel 15 Gm Of Glucse In 37.5 Gm Tube PO PRN PRN Hypoglycemia Protocol Hydralazine HCl 10 mg 12/15/23 08:43 Hydralazine Hcl 20 Mg/Ml Vial IV PUSH Q6H PRN Blood Pressure - High Sodium Chloride 1,000 mls @ 75 mls/hr 12/13/23 14:45 12/21/23 08:51 Normal Saline Iv IV CONT 75 mls/hr .[id number] SARA Administration Dextrose 1,000 mls @ 100 mls/hr 12/13/23 15:48 Dextrose 5% 1,000 Ml IVPB PRN PRN Hypoglycemia Protocol Insulin Aspart 2 - 5 units 12/13/23 17:00 12/21/23 14:27 Insulin Aspart (*Bkc) 100 Units/Ml SUB-Q Not Given TIDWM SARA Protocol Isosorbide Mononitrate 30 mg 12/14/23 09:00 12/21/23 08:21 Isosorbide Mononitrate 30 Mg Tab.Er.24h PO 30 mg DAILY SARA Administration Losartan Potassium 100 mg 12/16/23 09:00 12/21/23 08:21 Losartan Potassium 50 Mg Tablet PO 100 mg DAILY SARA Administration Meclizine HCl 25 mg 12/13/23 21:22 Meclizine Hcl 25 Mg Tablet PO BID PRN Dizziness Or Vertigo Methocarbamol 750 mg 12/13/23 21:22 Methocarbamol 750 Mg Tablet PO Q8H PRN muscle spasms Metoprolol Succinate 50 mg 12/16/23 09:00 12/21/23 08:21 Metoprolol Succinate Ext Rel 50 Mg Tabcr PO 50 mg DAILY SARA Administration Ondansetron HCl 4 mg 12/13/23 21:22 Ondansetron Hcl Odt 4 Mg Tablet PO Q8H PRN Nausea And Vomiting Polyethylene Glycol 17 gm 12/17/23 13:35 12/21/23 08:21 Polyethylene Glycol 3350 17 Gm Powd.Pack PO 17 gm QAM SARA Administration Potassium Chloride 40 meq 12/15/23 09:00 12/21/23 08:21 Potassium Chloride 20 Meq Packet (For Liquid) PO 40 meq DAILY SARA Administration Rosuvastatin Calcium 20 mg 12/13/23 21:35 12/20/23 21:26 Rosuvastatin 20 Mg Tablet PO 20 mg HS SARA Administration Radiology Results: ITS Impressions Chest X-Ray 12/13/23 10:39 IMPRESSION: 1. Mild atelectasis at left lung base. 2. Cardiomegaly. Chest/Abdomen/Pelvis CT 12/13/23 14:18 IMPRESSION: 1. Small sliding hiatal hernia. Venous Doppler Study 12/15/23 14:19 IMPRESSION: 1. Bilateral [id number] deep venous thrombosis in the right peroneal vein and left posterior tibial and peroneal veins. Head CT 12/16/23 11:55 IMPRESSION: 1. No acute intracranial process. 2. 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 3. Age-related changes including mild diffuse volume loss and mild scattered white matter hypoattenuation consistent with chronic small vessel ischemic disease. Brain MRI 12/17/23 12:09 IMPRESSION: 1. Acute infarct in left cerebellum. Susceptibility artifact in this distribution may be calcifications or blood products. 2. Infarcts involving the left parietal lobe, left insula, and left occipital lobe, likely subacute or chronic. 3. Old infarct in the right thalamus. Labs Labs: Laboratory Results - last 24 hr 12/20/23 12/20/23 12/20/23 16:19 16:29 19:50 WBC 6.2 RBC 3.26 L Hgb 10.0 L Hct 29.9 L MCV 91.7 MCH 30.7 MCHC 33.4 RDW 12.7 Plt Count 264 MPV 10.1 Sodium 134 L Potassium 3.7 Chloride 104 Carbon Dioxide 20 L Anion Gap 10 BUN 12 Creatinine 0.60 L Estim Creat Clear Calc 44 Estimated GFR > 60 Glucose 124 H POC Capillary Glucose 131 H 116 H Calcium 8.5 12/20/23 12/21/23 12/21/23 23:48 07:33 11:36 WBC RBC Hgb Hct MCV MCH MCHC RDW Plt Count MPV Sodium Potassium Chloride Carbon Dioxide Anion Gap BUN Creatinine Estim Creat Clear Calc Estimated GFR Glucose POC Capillary Glucose 103 79 174 H Calcium Quality VTE Prophylaxis VTE prophylaxis: mechanical ordered
[2023-12-21 17:07] LABS: Glucose Point of Care 143 mg/dl (65-105)
[2023-12-21] MEDS: ROSUVASTATIN 20 MG TABLET PO (20:48)
[2023-12-21 20:56] LABS: Glucose Point of Care 114 mg/dl (65-105)
[2023-12-22] VITALS (10 sets, daily range): BP systolic 121–159; BP diastolic 69–73; PULSE 67–81; RESP 16–18; TEMP 36.2–36.7; O2SAT 97–100
[2023-12-22 07:02] LABS: Potassium 3.2 mmol/L (3.4-5.0)
[2023-12-22 07:26] LABS: Glucose Point of Care 71 mg/dl (65-105)
[2023-12-22 08:03] LABS: Glucose Point of Care 107 mg/dl (65-105)
[2023-12-22] MEDS: polyethylene glycoL 3350 17 GM POWD.PACK PO (08:50)
[2023-12-22] MEDS: POTASSIUM CHLORIDE 20 MEQ PACKET (FOR LIQUID) 40 MEQ PO (08:50)
[2023-12-22] MEDS: CLOPIDOGREL BISULFATE 75 MG TABLET PO (08:52)
[2023-12-22] MEDS: METOPROLOL SUCCINATE EXT REL 50 MG TABCR PO (08:52)
[2023-12-22] MEDS: amLODIPine BESYLATE 10 MG TABLET PO (08:52)
[2023-12-22] MEDS: ISOSORBIDE MONONITRATE 30 MG TAB.ER.24H PO (08:53)
[2023-12-22] MEDS: LOSARTAN POTASSIUM 50 MG TABLET 100 MG PO (08:53)
[2023-12-22] MEDS: ASPIRIN 81 MG ENTERIC TABLET PO (08:53)
--- NOTE | 2023-12-22 09:06 | PC.NURSE ---
On 12/22/23, the student, [Hebert Díaz], provided care and completed [facility] documentation on this patient. I have reviewed the student's documentation and agree with the findings.
--- NOTE | 2023-12-22 09:21 | PM.IMPN ---
Progress Note: A&P Assessment and Plan (1) Sepsis: Code(s): A41.9 - Sepsis, unspecified organism Status: Acute (2) Acute kidney injury: Code(s): N17.9 - Acute kidney failure, unspecified Status: Acute (3) Acute UTI: Code(s): N39.0 - Urinary tract infection, site not specified Status: Acute Plan SEPSIS - meets Sepsis criteria: HR, RR, leukocytosis 11,400 Likely resulting from UTI - lactic acid: 2.0, procalcitonin added - 30 mL/kg = 720, 1L bolus given - suspected source: UTI - started on ceftriaxone - blood cultures drawn on 12/12 - UA consistent with UTI - CXR showing no pneumonia - monitor hemodynamic stability and temp Resolved Acute encephalopathy -head CT: no intracranial hemorrhage mass or acute infarct. atrophy and chronic white matter changes, see report. 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 repeat CT head today consult neurologist regarding long-term oral anticoagulation, Neurologist recommend inferior vena cava future Consult general surgeon for evaluation and pacing inferior vena cava filter -notes reviewed: Patient has evidence of bilateral [id number] DVTs. She also had an acute ischemic stroke with a possible hemorrhagic component on MRI, therefore Neurology is recommending IVC filter placement and to avoid oral anticoagulation at this time. She continues to be on dual-antiplatelet therapy with Plavix and aspirin. It is controversial if anticoagulation would even be indicated with a distal DVT. There is also the option of monitoring with ultrasound and considering further intervention if there is any propagation. Placing an IVC filter is not emergent and we would recommend evaluation by vascular surgery to further evaluate her anticoagulation and possible IVC filter placement, which could be done as an outpatient. -will order PT/OT- and anticipate discharge tomorrow/in few days- pending placement KAUSHAL Elevated BUN creatinine above baseline, upon arrival 28 over 1.2, baseline creatinine 0.8 December 09, 2023 Likely secondary to dehydration and UTI Received antibiotics Creatinine is trending down 0.8, resolved Discontinue IV fluid Hypokalemia Hypokalemia upon arrival, Replete with potassium chloride 40 mEq daily p.o. Follow-up BMP, magnesium level Corrected Elevated troponin EKG, initial: Sinus rhythm, rate 90, left axis deviation, possible anterior OK probably old, moderate T-wave abnormality consider lateral ischemia. No previous available for comparison. - CXR: Mild atelectasis at left lung base and cardiomegaly. - CT chest/abdomen/pelvis with con: small sliding hiatal hernia. - Troponin: Positive serial troponin no chest pain or shortness of breath - ASA 324 ordered and SL nitro PRN - suspect alteration is multifactorial secondary to hypoxia, UTI, and hypotension. - telemetry monitoring Follow-up echocardiogram, 1. Complete two-dimensional, color flow and Doppler transthoracic echocardiogram is performed. 2. Left ventricular chamber dimension is normal. 3. Left ventricular systolic function is normal, estimated at 60-65%. 4. There is moderate concentric increased left ventricular wall thickness. 5. The left ventricular diastolic function is grade I diastolic dysfunction. 6. E/e' 14 is mildly elevated. 7. Left atrial chamber dimension is moderately enlarged. 8. There is trace mitral valve regurgitation. 9. There is trace tricuspid valve regurgitation. 10. No pulmonary hypertension, estimated pulmonary arterial systolic pressure is 33 mmHg. 11. There is trivial pericardial effusion. consulted Cardiology, no further ischemic workup per youth manager recommendation UTI (urinary tract infection): Qualifiers: Hematuria presence: without hematuria Urinary tract infection type: acute cystitis Qualified Code(s): N30.00 - Acute cystitis without hematuria Code(s): N39.0 - Urinary tract infection, site not specified Status: Acute Assessment and Plan: - UA: Cloudy, 2+ protein, trace ketones, 1+ blood, 2+ leuk esterase, 3-5 RBC, 21-50 WBC, no epithelial cells, 4+ bacteria - UC pending - no previous micro available for review - started on Ceftriaxone on 12/12 - rene exchanged on 12/12, originally placed post-CVA on 11/30 completed tx Type 2 diabetes mellitus: Qualifiers: Diabetes mellitus complication status: without complication Diabetes mellitus community development planner insulin use: without retirement use Qualified Code(s): E11.9 - Type 2 diabetes mellitus without complications Code(s): E11.9 - Type 2 diabetes mellitus without complications Status: Chronic Assessment and Plan: - hypoglycemia protocol - POC blood glucose ACHS - home medication: Hold metformin - correct regimen ordered - low dose TIDWM, based off BMI - A1C ordered HTN (hypertension): Qualifiers: Hypertension type: primary hypertension Qualified Code(s): I10 - Essential (primary) hypertension Code(s): I10 - Essential (primary) hypertension Status: Chronic Assessment and Plan: Uncontrolled hypertension, Increased globulin 10 mg daily p.o., continue metoprolol 25 mg daily p.o., increase losartan 100 mg daily p.o. Start hydralazine p.r.n. IV with parameters Subjective Date/time seen: 12/22/23 09:21 Interval history: seen and examined-placement pending. Will prob ened to go to SNF as acute rehab might be too much for pt. acute care rehab will not accept pt until she has a BM. will order miralax, colase and suppository. BM is not charted but pt abd i s soft and she reports no issues passing gas well. she is unsure when she had bm. Review of Systems Review of Systems: All systems reviewed & are unremarkable except as noted in HPI and below ROS unobtainable: Yes unobtainable due to mental status Constitutional: Constitutional: Reports as per HPI and Reports no additional constitutional complaints Eyes: Eyes: Reports as per HPI and Reports no additional eye complaints ENT: Reports system reviewed and no additional complaints, except as documented and Reports as per HPI Cardiovascular: Cardiovascular: Reports as per HPI and Reports no additional cardiovascular complaints Respiratory: Respiratory: Reports as per HPI and Reports no additional respiratory complaints Gastrointestinal: Gastrointestinal: Reports as per HPI and Reports no additional gastrointestinal complaints Genitourinary: Genitourinary: Reports no additional female genitourinary complaints and Reports as per HPI Musculoskeletal: Musculoskeletal: Reports no additional musculoskeletal complaints and Reports as per HPI Integumentary/Breasts: Skin/Breast: Reports system reviewed and no additional complaints, except as docu and Reports as per HPI Neurologic: Reports system reviewed and no additional complaints, except as documented and Reports as per HPI Psychiatric: Psychiatric: Reports no additional psychiatric complaints and Reports as per HPI Exam Narrative: General: In no acute distress, resting in bed Head: atraumatic, no encephalopathy Eyes: PERRLA, sclera clear ENT: moist mucous membranes, nasal passages clear Neck: supple, no JVD, no adenopathy, trachea midline Cardiac: Normal S1 and S2. No murmur, gallops or friction rubs, peripheral pulses intact. Respiratory: Lungs clear to auscultation, no adventitious lung sounds Gastrointestinal: soft, non-distended, non-tender, normoactive bowel sounds. : voiding without difficulty. Extremities: moves all extremities well, no edema, good ROM, strength 4/5 on right side, 5/5 strength on left side Skin: clean, dry, intact. No wounds or lesions. Neuro: Alert and oriented x2-3, cranial nerves intact, no neuro deficits. She does have some dysphagia and slurred speech. confused Psych:interactive Const: General: comfortable and no acute distress Other: , female, elderly, mildly ill-appearing HENMT: Face/Nose/Sinus: Normal nares present Mouth: Yes dry mucous membranes Eyes: General: appearance normal, both eyes and all related structures Sclera: sclerae normal Pupils: Equal, round and reactive pupils present EOM: EOMs intact bilaterally Resp: Effort & Inspection: normal respiratory effort Auscultation: clear to auscultation bilaterally Cardio: Rate: regular rate Rhythm: regular rhythm Other: S1-S2 present without murmur, rub, ectopy GI: Other: Abdomen soft, nondistended, nontender. Normoactive bowel sounds in all quadrants. Urinary Catheter: Urinary Catheter: patent and draining Skin: General skin exam: normal color and no rashes or lesions noted Wounds: no wounds Neuro: Cranial nerves: Yes Equal, round and reactive pupils present Other: Patient with spontaneous eye opening. Regards. Able to nod yes and no to simple questions. Extrem: General: normal to inspection Psych: Other: Fair to poor insight and judgment are present, pleasant. Objective Data Vital Signs Vital Signs: Vital Signs - 24 hr 12/21/23 10:35 12/21/23 12:00 12/21/23 13:55 Temperature 97.4 F L Pulse Rate 76 66 Respiratory Rate 16 Blood Pressure 110/74 Pulse Oximetry 100 Oxygen Delivery Room Air Fraction of Inspired Oxygen 12/21/23 16:00 12/21/23 21:10 12/21/23 20:00 Temperature 97.1 F L Pulse Rate 66 70 70 Respiratory Rate 16 16 Blood Pressure 142/78 H Pulse Oximetry 99 99 Oxygen Delivery Room Air Fraction of Inspired Oxygen 21 12/21/23 20:00 12/22/23 00:00 12/22/23 04:00 Temperature Pulse Rate 74 80 75 Respiratory Rate Blood Pressure Pulse Oximetry Oxygen Delivery Fraction of Inspired Oxygen 12/22/23 05:45 12/22/23 08:52 Temperature 98.0 F Pulse Rate 71 72 Respiratory Rate 18 Blood Pressure 159/69 H Pulse Oximetry 100 Oxygen Delivery Fraction of Inspired Oxygen Intake/Output Intake/Output: Intake & Output 12/19/23 12/20/23 12/21/23 12/22/23 23:59 23:59 23:59 23:59 Intake Total 1140 2468.8 2386.3 210 Output Total 1750 1300 2250 1250 Balance -610 1168.8 136.3 -1040 Meds/Results Medications: Active Medications Generic Name Dose Route Start Last Admin Trade Name Freq PRN Reason Stop Dose Admin Acetaminophen 650 mg 12/13/23 21:22 Acetaminophen 325 Mg Tablet PO Q6H PRN PAIN RATED 1-3 Amlodipine Besylate 10 mg 12/15/23 09:00 12/22/23 08:52 Amlodipine Besylate 10 Mg Tablet PO 10 mg DAILY SARA Administration Aspirin 81 mg 12/14/23 09:00 12/22/23 08:53 Aspirin 81 Mg Enteric Tablet PO 81 mg DAILY SARA Administration Clopidogrel Bisulfate 75 mg 12/14/23 09:00 12/22/23 08:52 Clopidogrel Bisulfate 75 Mg Tablet PO 75 mg DAILY SARA Administration Dextrose 12.5 gm 12/13/23 15:48 Dextrose 50% 25 Gm/50 Ml Syringe IV PUSH PRN PRN Hypoglycemia Protocol Glucagon 1 mg 12/13/23 15:48 Glucagon For Inj 1 Mg Vial IM PRN PRN Hypoglycemia Protocol Glucose 15 gm 12/13/23 15:48 Glucose Oral Gel 15 Gm Of Glucse In 37.5 Gm Tube PO PRN PRN Hypoglycemia Protocol Hydralazine HCl 10 mg 12/15/23 08:43 Hydralazine Hcl 20 Mg/Ml Vial IV PUSH Q6H PRN Blood Pressure - High Sodium Chloride 1,000 mls @ 75 mls/hr 12/13/23 14:45 12/21/23 22:32 Normal Saline Iv IV CONT 75 mls/hr .[id number] SARA Administration Dextrose 1,000 mls @ 100 mls/hr 12/13/23 15:48 Dextrose 5% 1,000 Ml IVPB PRN PRN Hypoglycemia Protocol Insulin Aspart 2 - 5 units 12/13/23 17:00 12/22/23 08:55 Insulin Aspart (*Bkc) 100 Units/Ml SUB-Q Not Given TIDWM [facility] Protocol Isosorbide Mononitrate 30 mg 12/14/23 09:00 12/22/23 08:53 Isosorbide Mononitrate 30 Mg Tab.Er.24h PO 30 mg DAILY SARA Administration Losartan Potassium 100 mg 12/16/23 09:00 12/22/23 08:53 Losartan Potassium 50 Mg Tablet PO 100 mg DAILY SARA Administration Meclizine HCl 25 mg 12/13/23 21:22 Meclizine Hcl 25 Mg Tablet PO BID PRN Dizziness Or Vertigo Methocarbamol 750 mg 12/13/23 21:22 Methocarbamol 750 Mg Tablet PO Q8H PRN muscle spasms Metoprolol Succinate 50 mg 12/16/23 09:00 12/22/23 08:52 Metoprolol Succinate Ext Rel 50 Mg Tabcr PO 50 mg DAILY SARA Administration Ondansetron HCl 4 mg 12/13/23 21:22 Ondansetron Hcl Odt 4 Mg Tablet PO Q8H PRN Nausea And Vomiting Polyethylene Glycol 17 gm 12/17/23 13:35 12/22/23 08:50 Polyethylene Glycol 3350 17 Gm Powd.Pack PO 17 gm QAM SARA Administration Potassium Chloride 40 meq 12/15/23 09:00 12/22/23 08:50 Potassium Chloride 20 Meq Packet (For Liquid) PO 40 meq DAILY SARA Administration Rosuvastatin Calcium 20 mg 12/13/23 21:35 12/21/23 20:48 Rosuvastatin 20 Mg Tablet PO 20 mg HS SARA Administration Radiology Results: ITS Impressions Chest X-Ray 12/13/23 10:39 IMPRESSION: 1. Mild atelectasis at left lung base. 2. Cardiomegaly. Chest/Abdomen/Pelvis CT 12/13/23 14:18 IMPRESSION: 1. Small sliding hiatal hernia. Venous Doppler Study 12/15/23 14:19 IMPRESSION: 1. Bilateral [id number] deep venous thrombosis in the right peroneal vein and left posterior tibial and peroneal veins. Head CT 12/16/23 11:55 IMPRESSION: 1. No acute intracranial process. 2. 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 3. Age-related changes including mild diffuse volume loss and mild scattered white matter hypoattenuation consistent with chronic small vessel ischemic disease. Brain MRI 12/17/23 12:09 IMPRESSION: 1. Acute infarct in left cerebellum. Susceptibility artifact in this distribution may be calcifications or blood products. 2. Infarcts involving the left parietal lobe, left insula, and left occipital lobe, likely subacute or chronic. 3. Old infarct in the right thalamus. Labs Labs: Laboratory Results - last 24 hr 12/21/23 12/21/23 12/21/23 11:36 17:00 20:29 Potassium POC Capillary Glucose 174 H 143 H 114 H 12/22/23 12/22/23 12/22/23 06:10 07:22 07:59 Potassium 3.2 L POC Capillary Glucose 71 107 H Quality VTE Prophylaxis VTE prophylaxis: mechanical ordered
[2023-12-22] MEDS: KCL 20 MEQ/SW 100 ML 100 ML 50 MEQ IVPB (10:40)
[2023-12-22 11:47] LABS: Glucose Point of Care 149 mg/dl (65-105)
[2023-12-22] MEDS: SODIUM CHLORIDE 0.9% IV 1,000 ML 75 ML IV CONT (15:00)
--- NOTE | 2023-12-22 15:53 | PC.NURSE ---
On 12/22/23, the B2B SALES EXECUTIVE, Michelle, provided care and [facility] on this [facility]. I have reviewed the [employer] SALES EXECUTIVE's documentation and agree with the findings.
[2023-12-22 17:17] LABS: Glucose Point of Care 126 mg/dl (65-105)
[2023-12-22 20:29] LABS: Glucose Point of Care 138 mg/dl (65-105)
[2023-12-22] MEDS: DOCUSATE SODIUM 100 MG CAPSULE PO (21:54)
[2023-12-22] MEDS: ROSUVASTATIN 20 MG TABLET PO (21:54)
[2023-12-23] VITALS (7 sets, daily range): BP systolic 124–145; BP diastolic 72–77; PULSE 56–96; RESP 18–20; TEMP 35.9–36.9; O2SAT 95–97
[2023-12-23] MEDS: SODIUM CHLORIDE 0.9% IV 1,000 ML 75 ML IV CONT (03:12)
[2023-12-23] MEDS: BISACODYL 10 MG SUPPOSITORY RECTAL (05:20)
[2023-12-23 07:44] LABS: Glucose Point of Care 110 mg/dl (65-105)
[2023-12-23] MEDS: CLOPIDOGREL BISULFATE 75 MG TABLET PO (08:03)
[2023-12-23] MEDS: amLODIPine BESYLATE 10 MG TABLET PO (08:03)
[2023-12-23] MEDS: METOPROLOL SUCCINATE EXT REL 50 MG TABCR PO (08:04)
[2023-12-23] MEDS: ASPIRIN 81 MG ENTERIC TABLET PO (08:04)
[2023-12-23] MEDS: ISOSORBIDE MONONITRATE 30 MG TAB.ER.24H PO (08:04)
[2023-12-23] MEDS: polyethylene glycoL 3350 17 GM POWD.PACK PO (08:04)
[2023-12-23] MEDS: POTASSIUM CHLORIDE 20 MEQ PACKET (FOR LIQUID) 40 MEQ PO (08:04)
[2023-12-23] MEDS: LOSARTAN POTASSIUM 50 MG TABLET 100 MG PO (08:04)
[2023-12-23] MEDS: DOCUSATE SODIUM 100 MG CAPSULE PO (08:04)
--- NOTE | 2023-12-23 09:04 | PM.IMPN ---
Progress Note: A&P Assessment and Plan (1) Sepsis: Code(s): A41.9 - Sepsis, unspecified organism Status: Acute (2) Acute kidney injury: Code(s): N17.9 - Acute kidney failure, unspecified Status: Acute (3) Acute UTI: Code(s): N39.0 - Urinary tract infection, site not specified Status: Acute Plan SEPSIS - meets Sepsis criteria: HR, RR, leukocytosis 11,400 Likely resulting from UTI - lactic acid: 2.0, procalcitonin added - 30 mL/kg = 720, 1L bolus given - suspected source: UTI - started on ceftriaxone - blood cultures drawn on 12/12 - UA consistent with UTI - CXR showing no pneumonia - monitor hemodynamic stability and temp Resolved Acute encephalopathy -head CT: no intracranial hemorrhage mass or acute infarct. atrophy and chronic white matter changes, see report. Likely secondary to UTI, dehydration Neuro check Mental status improving, still not oriented x3, possible baseline due to recent stroke neurologist consulted resolved- pt is alert now DVT Anticoagulation on hold due to recent stroke per neurologist Per rehab note, MRI done on 11/11 showed a new infarction not sure ischemic or intracranial bleeding stroke 12/14 venous Doppler Bilateral [id number] deep venous thrombosis in the right peroneal vein and left posterior tibial and peroneal veins. repeat CT head today consult neurologist regarding long-term oral anticoagulation, Neurologist recommend inferior vena cava future Consult general surgeon for evaluation and pacing inferior vena cava filter -notes reviewed: Patient has evidence of bilateral [id number] DVTs. She also had an acute ischemic stroke with a possible hemorrhagic component on MRI, therefore Neurology is recommending IVC filter placement and to avoid oral anticoagulation at this time. She continues to be on dual-antiplatelet therapy with Plavix and aspirin. It is controversial if anticoagulation would even be indicated with a distal DVT. There is also the option of monitoring with ultrasound and considering further intervention if there is any propagation. Placing an IVC filter is not emergent and we would recommend evaluation by vascular surgery to further evaluate her anticoagulation and possible IVC filter placement, which could be done as an outpatient. -will order PT/OT- and anticipate discharge tomorrow/in few days- pending placement KAUSHAL Elevated BUN creatinine above baseline, upon arrival 28 over 1.2, baseline creatinine 0.8 December 09, 2023 Likely secondary to dehydration and UTI Received antibiotics Creatinine is trending down 0.8, resolved Discontinue IV fluid Hypokalemia Hypokalemia upon arrival, Replete with potassium chloride 40 mEq daily p.o. Follow-up BMP, magnesium level Corrected-trend Elevated troponin EKG, initial: Sinus rhythm, rate 90, left axis deviation, possible anterior CT probably old, moderate T-wave abnormality consider lateral ischemia. No previous available for comparison. - CXR: Mild atelectasis at left lung base and cardiomegaly. - CT chest/abdomen/pelvis with con: small sliding hiatal hernia. - Troponin: Positive serial troponin no chest pain or shortness of breath - ASA 324 ordered and SL nitro PRN - suspect alteration is multifactorial secondary to hypoxia, UTI, and hypotension. - telemetry monitoring Follow-up echocardiogram, 1. Complete two-dimensional, color flow and Doppler transthoracic echocardiogram is performed. 2. Left ventricular chamber dimension is normal. 3. Left ventricular systolic function is normal, estimated at 60-65%. 4. There is moderate concentric increased left ventricular wall thickness. 5. The left ventricular diastolic function is grade I diastolic dysfunction. 6. E/e' 14 is mildly elevated. 7. Left atrial chamber dimension is moderately enlarged. 8. There is trace mitral valve regurgitation. 9. There is trace tricuspid valve regurgitation. 10. No pulmonary hypertension, estimated pulmonary arterial systolic pressure is 33 mmHg. 11. There is trivial pericardial effusion. consulted Cardiology, no further ischemic workup per flat knitter recommendation UTI (urinary tract infection): Qualifiers: Hematuria presence: without hematuria Urinary tract infection type: acute cystitis Qualified Code(s): N30.00 - Acute cystitis without hematuria Code(s): N39.0 - Urinary tract infection, site not specified Status: Acute Assessment and Plan: - UA: Cloudy, 2+ protein, trace ketones, 1+ blood, 2+ leuk esterase, 3-5 RBC, 21-50 WBC, no epithelial cells, 4+ bacteria - UC pending - no previous micro available for review - started on Ceftriaxone on 12/12 - rene exchanged on 12/12, originally placed post-CVA on 11/30 completed tx Type 2 diabetes mellitus: Qualifiers: Diabetes mellitus complication status: without complication Diabetes mellitus joint terminal attack controller insulin use: without joint terminal attack controller use Qualified Code(s): E11.9 - Type 2 diabetes mellitus without complications Code(s): E11.9 - Type 2 diabetes mellitus without complications Status: Chronic Assessment and Plan: - hypoglycemia protocol - POC blood glucose ACHS - home medication: Hold metformin - correct regimen ordered - low dose TIDWM, based off BMI - A1C ordered HTN (hypertension): Qualifiers: Hypertension type: primary hypertension Qualified Code(s): I10 - Essential (primary) hypertension Code(s): I10 - Essential (primary) hypertension Status: Chronic Assessment and Plan: Uncontrolled hypertension, Increased globulin 10 mg daily p.o., continue metoprolol 25 mg daily p.o., increase losartan 100 mg daily p.o. Start hydralazine p.r.n. IV with parameters Time Spent With Patient Time with patient: Greater than 35 minutes Subjective Date/time seen: 12/23/23 09:04 Interval history: seen and examined-placement pending. acute care rehab will not accept pt until she has a BM. Suppository was given this am at 5. Review of Systems Review of Systems: All systems reviewed & are unremarkable except as noted in HPI and below ROS unobtainable: Yes unobtainable due to mental status Constitutional: Constitutional: Reports as per HPI and Reports no additional constitutional complaints Eyes: Eyes: Reports as per HPI and Reports no additional eye complaints ENT: Reports system reviewed and no additional complaints, except as documented and Reports as per HPI Cardiovascular: Cardiovascular: Reports as per HPI and Reports no additional cardiovascular complaints Respiratory: Respiratory: Reports as per HPI and Reports no additional respiratory complaints Gastrointestinal: Gastrointestinal: Reports as per HPI and Reports no additional gastrointestinal complaints Genitourinary: Genitourinary: Reports no additional female genitourinary complaints and Reports as per HPI Musculoskeletal: Musculoskeletal: Reports no additional musculoskeletal complaints and Reports as per HPI Integumentary/Breasts: Skin/Breast: Reports system reviewed and no additional complaints, except as docu and Reports as per HPI Neurologic: Reports system reviewed and no additional complaints, except as documented and Reports as per HPI Psychiatric: Psychiatric: Reports no additional psychiatric complaints and Reports as per HPI Exam Narrative: General: In no acute distress, resting in bed, denies any pain Head: atraumatic, no encephalopathy Eyes: PERRLA, sclera clear ENT: moist mucous membranes, nasal passages clear Neck: supple, no JVD, no adenopathy, trachea midline Cardiac: Normal S1 and S2. No murmur, gallops or friction rubs, peripheral pulses intact. Respiratory: Lungs clear to auscultation, no adventitious lung sounds Gastrointestinal: soft, non-distended, non-tender, normoactive bowel sounds. : voiding without difficulty. Extremities: moves all extremities well, no edema, good ROM, strength 4/5 on right side, 5/5 strength on left side Skin: clean, dry, intact. No wounds or lesions. Neuro: Alert and oriented x2-3, cranial nerves intact, no neuro deficits. She does have some dysphagia and slurred speech. confused Psych:interactive Const: General: comfortable and no acute distress Other: , female, elderly, mildly ill-appearing HENMT: Face/Nose/Sinus: Normal nares present Mouth: Yes dry mucous membranes Eyes: General: appearance normal, both eyes and all related structures Sclera: sclerae normal Pupils: Equal, round and reactive pupils present EOM: EOMs intact bilaterally Resp: Effort & Inspection: normal respiratory effort Auscultation: clear to auscultation bilaterally Cardio: Rate: regular rate Rhythm: regular rhythm Other: S1-S2 present without murmur, rub, ectopy GI: Other: Abdomen soft, nondistended, nontender. Normoactive bowel sounds in all quadrants. Urinary Catheter: Urinary Catheter: patent and draining Skin: General skin exam: normal color and no rashes or lesions noted Wounds: no wounds Neuro: Cranial nerves: Yes Equal, round and reactive pupils present Other: Patient with spontaneous eye opening. Regards. Able to nod yes and no to simple questions. Extrem: General: normal to inspection Psych: Other: Fair to poor insight and judgment are present, pleasant. Objective Data Vital Signs Vital Signs: Vital Signs - 24 hr 12/22/23 12:00 12/22/23 14:00 12/22/23 21:16 Temperature 98.0 F 97.1 F L Pulse Rate 73 72 74 Respiratory Rate 16 18 Blood Pressure 121/73 138/72 Pulse Oximetry 97 98 12/22/23 21:55 12/23/23 00:00 12/23/23 04:00 Temperature Pulse Rate 67 56 L 81 Respiratory Rate Blood Pressure Pulse Oximetry 12/23/23 05:10 12/22/23 16:00 Temperature 98.4 F Pulse Rate 94 68 Respiratory Rate 20 Blood Pressure 145/72 H Pulse Oximetry 95 Intake/Output Intake/Output: Intake & Output 12/20/23 12/21/23 12/22/23 12/23/23 23:59 23:59 23:59 23:59 Intake Total 2468.8 2386.3 1610 1215 Output Total 1300 2250 1650 1650 Balance 1168.8 136.3 -40 -435 Meds/Results Medications: Active Medications Generic Name Dose Route Start Last Admin Trade Name Freq PRN Reason Stop Dose Admin Acetaminophen 650 mg 12/13/23 21:22 Acetaminophen 325 Mg Tablet PO Q6H PRN PAIN RATED 1-3 Amlodipine Besylate 10 mg 12/15/23 09:00 12/23/23 08:03 Amlodipine Besylate 10 Mg Tablet PO 10 mg DAILY SARA Administration Aspirin 81 mg 12/14/23 09:00 12/23/23 08:04 Aspirin 81 Mg Enteric Tablet PO 81 mg DAILY SARA Administration Clopidogrel Bisulfate 75 mg 12/14/23 09:00 12/23/23 08:03 Clopidogrel Bisulfate 75 Mg Tablet PO 75 mg DAILY SARA Administration Dextrose 12.5 gm 12/13/23 15:48 Dextrose 50% 25 Gm/50 Ml Syringe IV PUSH PRN PRN Hypoglycemia Protocol Docusate Sodium 100 mg 12/22/23 21:00 12/23/23 08:04 Docusate Sodium 100 Mg Capsule PO 100 mg Q12HR SARA Administration Glucagon 1 mg 12/13/23 15:48 Glucagon For Inj 1 Mg Vial IM PRN PRN Hypoglycemia Protocol Glucose 15 gm 12/13/23 15:48 Glucose Oral Gel 15 Gm Of Glucse In 37.5 Gm Tube PO PRN PRN Hypoglycemia Protocol Hydralazine HCl 10 mg 12/15/23 08:43 Hydralazine Hcl 20 Mg/Ml Vial IV PUSH Q6H PRN Blood Pressure - High Sodium Chloride 1,000 mls @ 75 mls/hr 12/13/23 14:45 12/23/23 03:12 Normal Saline Iv IV CONT 75 mls/hr .[id number] SARA Administration Dextrose 1,000 mls @ 100 mls/hr 12/13/23 15:48 Dextrose 5% 1,000 Ml IVPB PRN PRN Hypoglycemia Protocol Insulin Aspart 2 - 5 units 12/13/23 17:00 12/22/23 17:15 Insulin Aspart (*Bkc) 100 Units/Ml SUB-Q Not Given TIDWM SARA Protocol Isosorbide Mononitrate 30 mg 12/14/23 09:00 12/23/23 08:04 Isosorbide Mononitrate 30 Mg Tab.Er.24h PO 30 mg DAILY SARA Administration Losartan Potassium 100 mg 12/16/23 09:00 12/23/23 08:04 Losartan Potassium 50 Mg Tablet PO 100 mg DAILY SARA Administration Meclizine HCl 25 mg 12/13/23 21:22 Meclizine Hcl 25 Mg Tablet PO BID PRN Dizziness Or Vertigo Methocarbamol 750 mg 12/13/23 21:22 Methocarbamol 750 Mg Tablet PO Q8H PRN muscle spasms Metoprolol Succinate 50 mg 12/16/23 09:00 12/23/23 08:04 Metoprolol Succinate Ext Rel 50 Mg Tabcr PO 50 mg DAILY SARA Administration Ondansetron HCl 4 mg 12/13/23 21:22 Ondansetron Hcl Odt 4 Mg Tablet PO Q8H PRN Nausea And Vomiting Polyethylene Glycol 17 gm 12/17/23 13:35 12/23/23 08:04 Polyethylene Glycol 3350 17 Gm Powd.Pack PO 17 gm QAM SARA Administration Potassium Chloride 40 meq 12/15/23 09:00 12/23/23 08:04 Potassium Chloride 20 Meq Packet (For Liquid) PO 40 meq DAILY SARA Administration Rosuvastatin Calcium 20 mg 12/13/23 21:35 12/22/23 21:54 Rosuvastatin 20 Mg Tablet PO 20 mg HS SARA Administration Radiology Results: ITS Impressions Chest X-Ray 12/13/23 10:39 IMPRESSION: 1. Mild atelectasis at left lung base. 2. Cardiomegaly. Chest/Abdomen/Pelvis CT 12/13/23 14:18 IMPRESSION: 1. Small sliding hiatal hernia. Venous Doppler Study 12/15/23 14:19 IMPRESSION: 1. Bilateral girhh-eeo-hzqk deep venous thrombosis in the right peroneal vein and left posterior tibial and peroneal veins. Head CT 12/16/23 11:55 IMPRESSION: 1. No acute intracranial process. 2. 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 3. Age-related changes including mild diffuse volume loss and mild scattered white matter hypoattenuation consistent with chronic small vessel ischemic disease. Brain MRI 12/17/23 12:09 IMPRESSION: 1. Acute infarct in left cerebellum. Susceptibility artifact in this distribution may be calcifications or blood products. 2. Infarcts involving the left parietal lobe, left insula, and left occipital lobe, likely subacute or chronic. 3. Old infarct in the right thalamus. Labs Labs: Laboratory Results - last 24 hr 12/22/23 12/22/23 12/22/23 11:40 17:14 19:50 POC Capillary Glucose 149 H 126 H 138 H 12/23/23 07:41 POC Capillary Glucose 110 H
[2023-12-23 09:24] LABS: Hematocrit 32.8 % (37.0-47.0); Hemoglobin 11.2 g/dL (12.0-15.0); Mean Corpuscular HGB Conc 34.1 g/dl (32-36); Mean Corpuscular Hemoglobin 30.9 pg (26-34); Mean Corpuscular Volume 90.6 fl (80-100); Mean Platelet Volume 10.1 fl (7.4-10.4); Platelet Count Result 306 k/mm3 (150-375); Red Blood Count 3.62 M/mm3 (4.2-5.4); Red Cell Distribution Width 12.8 % (11.5-14.5); White Blood Count 7.6 K/mm3 (4.5-10.0)
[2023-12-23 09:38] LABS: Anion Gap 7 mmol/L (4-12); Blood Urea Nitrogen 4 mg/dL (7-17); Calcium 8.9 mg/dL (8.4-10.2); Carbon Dioxide 23 mmol/L (22-30); Chloride 103 mmol/L (98-107); Estimated CRCL calculation 44 ml/min; Estimated Glomerular Filt Rate > 60; Glucose 112 mg/dL (65-110); Potassium 3.2 mmol/L (3.4-5.0); Sodium 133 mmol/L (137-145)
--- NOTE | 2023-12-23 11:30 | PC.NURSE ---
patient had Large BM, reported to Provider.
[2023-12-23 12:00] LABS: Glucose Point of Care 114 mg/dl (65-105)
--- NOTE | 2023-12-23 14:25 | PM.DS ---
DS: Admitting Diagnosis Discharge Date 12/22 Admitting Diagnosis weakness, stroke DS: Discharge Diagnosis Discharge Diagnosis (1) Sepsis: Code(s): A41.9 - Sepsis, unspecified organism Status: Acute (2) Acute kidney injury: Code(s): N17.9 - Acute kidney failure, unspecified Status: Acute (3) Acute UTI: Code(s): N39.0 - Urinary tract infection, site not specified Status: Acute DS: Summary Hospital Course Hospital Course: This is an 83-year-old woman with multiple medical problems, who presented to the ER with syncope and was admitted to [place] on 12/13/2023. She was treated for UTI, sepsis, and acute encephalopathy. She had bilateral lower extremity venous Doppler that showed bilateral eawdv-znv-[id number] DVT in the right peroneal vein and left posterior tibial and peroneal veins. She had a head CT that showed no acute intracranial process. Echocardiogram without any evidence of PFO. She then had a brain MRI yesterday that showed acute infarct in left cerebellum with susceptibility artifact in this distribution that may be calcifications or blood products, as well as infarcts involving the left parietal lobe, left insula, and left occipital lobe, likely subacute or chronic. She is currently on Plavix. Neurology was consulted and recommends avoiding anticoagulation due to a hemorrhagic component with the cerebellar stroke. They recommended IVC filter placement. Surgery was then consulted for placement of the IVC filter. Given med issues including multiple strokes in last few months, surgery recommended conservative mgmt c repeat U/S in 2 wks, ok to return to rehab, would recommend vascular surgery f/u as outpt and decide whether IVC filter is needed. # sepsis -suspected source- UTI - blood cultures negative -was started on ceftriaxone rene exchanged on 12/12, originally placed post-CVA on 11/30 completed tx # melissa Elevated BUN creatinine above baseline, upon arrival 28 over 1.2, baseline creatinine 0.8 December 09, 2023 Likely secondary to dehydration and UTI Creatinine is trending down 0.8 - resolved # hypokalemia - replaced- resolved # Elevated troponin EKG, initial: Sinus rhythm, rate 90, left axis deviation, possible anterior NM probably old, moderate T-wave abnormality consider lateral ischemia. No previous available for comparison. - CXR: Mild atelectasis at left lung base and cardiomegaly. - CT chest/abdomen/pelvis with con: small sliding hiatal hernia. - Troponin: Positive serial troponin no chest pain or shortness of breath - ASA 324 ordered and SL nitro PRN - suspect alteration is multifactorial secondary to hypoxia, UTI, and hypotension. -Echocardiogram Left ventricular systolic function is normal, estimated at 60-65%. 4. There is moderate concentric increased left ventricular wall thickness. 5. The left ventricular diastolic function is grade I diastolic dysfunction. 6. E/e' 14 is mildly elevated. 7. Left atrial chamber dimension is moderately enlarged. 8. There is trace mitral valve regurgitation. 9. There is trace tricuspid valve regurgitation. 10. No pulmonary hypertension, estimated pulmonary arterial systolic pressure is 33 mmHg. 11. There is trivial pericardial effusion. consulted Cardiology, no further ischemic workup per personal development mentor recommendation Status at Discharge Functional status at discharge: uses cane/walker Overall status at discharge: patient is progressing back to baseline Time Spent with Patient Time attestation: Total time spent providing and/or coordinating discharge services: Exam Narrative: General: In no acute distress, resting in bed, denies any pain Head: atraumatic, no encephalopathy Eyes: PERRLA, sclera clear ENT: moist mucous membranes, nasal passages clear Neck: supple, no JVD, no adenopathy, trachea midline Cardiac: Normal S1 and S2. No murmur, gallops or friction rubs, peripheral pulses intact. Respiratory: Lungs clear to auscultation, no adventitious lung sounds Gastrointestinal: soft, non-distended, non-tender, normoactive bowel sounds. : voiding without difficulty. Extremities: moves all extremities well, no edema, good ROM, strength 4/5 on right side, 5/5 strength on left side Skin: clean, dry, intact. No wounds or lesions. Neuro: Alert and oriented x2-3, cranial nerves intact, no neuro deficits. She does have some dysphagia and slurred speech. confused Psych:interactive Const: General: comfortable and no acute distress Other: , female, elderly, mildly ill-appearing HENMT: Face/Nose/Sinus: Normal nares present Mouth: Yes dry mucous membranes Eyes: General: appearance normal, both eyes and all related structures Sclera: sclerae normal Pupils: Equal, round and reactive pupils present EOM: EOMs intact bilaterally Resp: Effort & Inspection: normal respiratory effort Auscultation: clear to auscultation bilaterally Cardio: Rate: regular rate Rhythm: regular rhythm Other: S1-S2 present without murmur, rub, ectopy GI: Other: Abdomen soft, nondistended, nontender. Normoactive bowel sounds in all quadrants. Urinary Catheter: Urinary Catheter: patent and draining Skin: General skin exam: normal color and no rashes or lesions noted Wounds: no wounds Neuro: Cranial nerves: Yes Equal, round and reactive pupils present Other: Patient with spontaneous eye opening. Regards. Able to nod yes and no to simple questions. Extrem: General: normal to inspection Psych: Other: Fair to poor insight and judgment are present, pleasant. DS: Data Data Completed and Pending Labs on day of discharge: Labs from last 24 hours 12/23/23 12/23/23 12/23/23 11:52 09:19 07:41 WBC 7.6 RBC 3.62 L Hgb 11.2 L Hct 32.8 L MCV 90.6 MCH 30.9 MCHC 34.1 RDW 12.8 Plt Count 306 MPV 10.1 Sodium 133 L Potassium 3.2 L Chloride 103 Carbon Dioxide 23 Anion Gap 7 BUN 4 L D Creatinine 0.60 L Estim Creat Clear Calc 44 Estimated GFR > 60 Glucose 112 H POC Capillary Glucose 114 H 110 H Calcium 8.9 12/22/23 12/22/23 19:50 17:14 WBC RBC Hgb Hct MCV MCH MCHC RDW Plt Count MPV Sodium Potassium Chloride Carbon Dioxide Anion Gap BUN Creatinine Estim Creat Clear Calc Estimated GFR Glucose POC Capillary Glucose 138 H 126 H Calcium Discharge Plan Discharge Consulting providers: Tomasz Schafer; She Guthrie; Lamont Anderson; Piotr Bhagat Discharging Clinician: Pamela Dunn Patient Disposition: [facility] Activity: june shower Diet: heart healthy Discharge Instructions: She is currently on Plavix. Continue plavix and asa. Given med issues including multiple strokes in last few months, surgery recommended conservative mgmt for DVT- repeat U/S in 2 wks, ok to return to rehab, would recommend vascular surgery f/u as outpt and decide whether IVC filter is needed. Hold eliquis until f/u with vascular is done and further recommendations are made per vascular. Patient Instructions: Clopidogrel (By mouth), Syncope (DC), Catheter-associated Urinary Tract Infection (DC) Discharge Medications: New metoprolol succinate 50 mg Tablet Extended Release 24 Hr 50 mg PO DAILY Qty: 90 0RF aspirin 81 mg capsule 81 mg PO DAILY Qty: 90 0RF Continued nystatin 100,000 unit/mL Suspension 5 ml BUCCAL QID Rx Instructions: administer 1/2 of dose in each side of the mouth amlodipine 5 mg tablet 5 mg PO DAILY rosuvastatin 20 mg tablet 20 mg PO HS isosorbide mononitrate 30 mg Tablet Extended Release 24 Hr 30 mg PO DAILY losartan 50 mg Tablet 50 mg PO DAILY metformin 500 mg Tablet 500 mg PO BIDWM clopidogrel 75 mg Tablet 75 mg PO DAILY aspirin 81 mg Tablet,Delayed Release (Dr/Ec) 81 mg PO DAILY methocarbamol 750 mg Tablet 750 mg PO Q8H PRN (Reason: muscle spasms) meclizine 25 mg Tablet 25 mg PO BID PRN (Reason: Dizziness Or Vertigo) ondansetron 4 mg Tablet,Disintegrating 4 mg PO Q8H PRN (Reason: Nausea And Vomiting) acetaminophen 325 mg Tablet 650 mg PO Q6H PRN (Reason: Pain) Discontinued metoprolol succinate 25 mg Tablet Extended Release 24 Hr 25 mg PO DAILY Other Ambulatory Orders: US venous doppler LE (Routine) Timeframe: 2 Weeks Location: Determined by Patient Ordered By: Pamela Dunn Date of admission: 12/14/23 11:26 Primary Care Provider: Tod,Aston Brambila Admitting Provider: Chema Beavers Attending physician on admission: Chema Beavers Condition: Stable Quality VTE Prophylaxis VTE prophylaxis: mechanical ordered Hospitalist MIPS Heart Failure (Exclusion) Patient has history of Heart Transplant or Left Ventricular Assistive Device?: No IF YES, STOP HERE Heart Failure (Qualifier) Patient has current or prior documentation of LVEF less than or equal to 40%, or mod/servere depressed LVSF?: No IF NO, STOP HERE
[2023-12-23 16:46] LABS: Glucose Point of Care 114 mg/dl (65-105)
--- NOTE | 2023-12-23 17:02 | PC.NURSE ---
report given by phone to receiving nurse, Jennifer BUCK, at [facility] 12/23/23 @9350.
== END 2023-12-23 17:55 | DRG 871 ==
LOC: ANHED 10:45 → ANHIMU 16:01 → ANH3MEDSUR 12-15 13:19
PROVIDERS: Emergency Medicine; Hospitalist; Internal Medicine Cardiovascular Disease; Nurse Practitioner Acute Care; Psychiatry & Neurology Neurology; Student in an Organized Health Care Education/Training Program; Admitting Provider Internal Medicine; Emergency Provider Physician Assistant; PCP Family Medicine; Visit Provider Nurse Practitioner
DX: A41.9 Sepsis, unspecified organism (principal); I63.29 Cerebral infarction due to unspecified occlusion or stenosis of other precerebral arteries; I69.351 Hemiplegia and hemiparesis following cerebral infarction affecting right dominant side; N17.9 Acute kidney failure, unspecified; N39.0 Urinary tract infection, site not specified; G93.40 Encephalopathy, unspecified; I82.453 Acute embolism and thrombosis of peroneal vein, bilateral; I82.442 Acute embolism and thrombosis of left tibial vein; Q21.12 Patent foramen ovale; I10 Essential (primary) hypertension; I69.320 Aphasia following cerebral infarction; I69.391 Dysphagia following cerebral infarction; E87.6 Hypokalemia; E86.0 Dehydration; E78.5 Hyperlipidemia, unspecified; R41.841 Cognitive communication deficit; R79.89 Other specified abnormal findings of blood chemistry; Z20.822 Contact with and (suspected) exposure to COVID-19; Z79.82 Long term (current) use of aspirin; Z79.02 Long term (current) use of antithrombotics/antiplatelets
CPT/HCPCS: 36415; 70450; 70551; 71045; 71260; 74177; 80048; 80053; 80061; 81001; 82140; 82306; 82607; 82746; 82948; 83036; 83605; 83735; 84132; 84145; 84484; 85025; 85027; 87040; 87086; 87186; 87637; 93005; 93306; 93970; 96365; 96366; 96367; 96368; 97110; 97116; 97162; 97166; 97530; 99285; A9270; G0378; J0696; J3475; J3480; J7030; J7040; Q9967

== ENCOUNTER 2024-01-03 10:59 | Day surgery (SDC) | payer MEDICARE, SELFPAY ==
[2024-01-01 15:47] VITALS: BMI 24.3
[2024-01-03] VITALS (7 sets, daily range): BP systolic 149–166; BP diastolic 73–101; PULSE 78–84; RESP 14–31; TEMP 36.8; O2SAT 94–100
--- NOTE | 2024-01-03 10:43 | SUR.PREOP ---
Called and got report from RN at [facility] prior to patient arrival. No questions at this time. Spoke with Braden (son) and he will be with with patient.
[2024-01-03 11:32] LABS: Glucose Point of Care 127 mg/dl (65-105)
[2024-01-03] MEDS: LACTATED RINGERS 1,000 ML 150 ML IV CONT (11:43)
[2024-01-03] MEDS: ceFAZolin 1 GM/NS 50 ML 1 GM/50 ML BAG IVPB (11:44)
--- NOTE | 2024-01-03 11:47 | HP_ITS ---
This report was moved to the correct visit on 01/14/2024. The original report was signed by Mando Foy MD on 01/03/24 1147. H&P: HPI History of Present Illness Date/Time: 01/03/24 11:45 Chief Complaint: Dysphagia Narrative: this patient has had multiple strokes and since then her swallowing ability has been deteriorating significantly to the point that she cannot have a normal feeding schedule. 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 Dysphagia as late effect of stroke HTN (hypertension) Protein calorie malnutrition Stroke Type 2 diabetes mellitus with hyperglycemia Social History Social History Smoking status: Never smoker Second hand tobacco smoke exposure: Yes Alcohol intake: never Substance use: never Substance use type: does not use Do You Feel Safe in your Home?: Yes Lack of Transportation: No Lack of Food: Never True Current Housing: I Have Housing Concerned About Future Housing: No Difficulty Paying Gas/Electric Bills: No Difficulty Paying for Meds: No Currently Unemployed: No Education: High School Diploma/GED Difficulty w/ Childcare or Family Care: No Living arrangements: other Additional living arrangements comments: [facility] Gender identity (if verbalized by the patient): Female Sexual Orientation (if Verbalized by the Patient): Straight or Heterosexual Spiritual care concerns: No Meds Home Medications and Allergies Home Medications Medication Instructions Recorded Confirmed Type aspirin 81 mg tablet,delayed 81 mg PO DAILY 11/14/23 01/01/24 History release clopidogrel 75 mg tablet 75 mg PO DAILY 11/14/23 01/01/24 History metformin 500 mg tablet 500 mg PO BIDWM 11/14/23 01/01/24 History ondansetron 4 mg disintegrating 4 mg PO Q8H PRN Nausea And Vomiting 11/14/23 01/01/24 History tablet acetaminophen 325 mg tablet 650 mg PO Q6H PRN Pain 11/16/23 01/01/24 History atorvastatin 40 mg tablet 40 mg PO HS 01/01/24 01/01/24 History bisacodyl 10 mg rectal suppository 10 mg RECTAL DAILY PRN Constipation 01/01/24 01/01/24 History hydralazine 25 mg tablet 25 mg PO QID PRN Hypertension 01/01/24 01/01/24 History isosorbide dinitrate 10 mg tablet 10 mg PO BID 01/01/24 01/01/24 History losartan 25 mg tablet 25 mg PO DAILY 01/01/24 01/01/24 History magnesium oxide 400 mg PO DAILY 01/01/24 01/01/24 History meclizine 12.5 mg tablet 12.5 mg PO TID PRN Dizziness Or 01/01/24 01/01/24 History Vertigo metoprolol tartrate 25 mg tablet 25 mg PO BID 01/01/24 01/01/24 History Allergies Allergy/AdvReac Type Severity Reaction Status Date / Time No Known Allergies Allergy Verified 12/08/23 18:26 Exam Resp: Effort & Inspection: normal respiratory effort Auscultation: clear to auscultation bilaterally Cardio: Rate: regular rate Rhythm: regular rhythm GI: Inspection: normal to inspection GI Palp: No No hepatosplenomegaly present Auscultation: normal bowel sounds Rectal Exam: deferred Skin: General skin exam: normal color Psych: Appearance: grossly normal Mental Status: mental status grossly normal Assessment and Plan Assessment and plan (1) Dysphagia: Code(s): R13.10 - Dysphagia, unspecified Status: Acute Assessment and Plan: The patient is deemed a good candidate for the procedure. Consent signed. prophylactic antibiotics given (Ancef). Will proceed. This report may have been done utilizing a voice recognition system. Attempts have been made to correct errors. However, there may be uncorrected grammatical, spelling, and recognition errors present. Report Initialized date/time: Mando Foy MD 01/03/24 / 1146 Electronically signed by: Mando Foy MD 01/03/241146 [facility]
--- NOTE | 2024-01-03 11:49 | P.PNAN_ITS ---
Anes - Initial Pre Proc Eval Procedure: Operation Date: 01/03/24 12:30 Proposed Procedures p Percutaneous Endoscopic Gastrostomy - Mando Foy MD Date/Time: 01/03/24 11:49 Surgeon: Mando Foy MD Pre Op Diagnosis: malnutrition/stroke/dysphagia Patient Data Age: 83 Gender: F Height: 1.52 m Weight: 56.4 kg Allergies Allergy/AdvReac Type Severity Reaction Status Date / Time No Known Allergies Allergy Verified 01/03/24 11:51 Home Medications Medication Instructions Recorded Confirmed Type aspirin 81 mg tablet,delayed 81 mg PO DAILY 11/14/23 01/01/24 History release clopidogrel 75 mg tablet 75 mg PO DAILY 11/14/23 01/01/24 History metformin 500 mg tablet 500 mg PO BIDWM 11/14/23 01/01/24 History ondansetron 4 mg disintegrating 4 mg PO Q8H PRN Nausea And Vomiting 11/14/23 01/01/24 History tablet acetaminophen 325 mg tablet 650 mg PO Q6H PRN Pain 11/16/23 01/01/24 History atorvastatin 40 mg tablet 40 mg PO HS 01/01/24 01/01/24 History bisacodyl 10 mg rectal suppository 10 mg RECTAL DAILY PRN Constipation 01/01/24 01/01/24 History hydralazine 25 mg tablet 25 mg PO QID PRN Hypertension 01/01/24 01/01/24 History isosorbide dinitrate 10 mg tablet 10 mg PO BID 01/01/24 01/01/24 History losartan 25 mg tablet 25 mg PO DAILY 01/01/24 01/01/24 History magnesium oxide 400 mg PO DAILY 01/01/24 01/01/24 History meclizine 12.5 mg tablet 12.5 mg PO TID PRN Dizziness Or 01/01/24 01/01/24 History Vertigo metoprolol tartrate 25 mg tablet 25 mg PO BID 01/01/24 01/01/24 History Patient hx anesthesia problems: none Family hx anesthesia problems: none Results Review: All pre-operative results and documents have been reviewed as part of the pre- operative evaluation. 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 Dysphagia as late effect of stroke HTN (hypertension) Protein calorie malnutrition Stroke Type 2 diabetes mellitus with hyperglycemia Social History Social History Smoking status: Never smoker Second hand tobacco smoke exposure: Yes Alcohol intake: never Substance use: never Substance use type: does not use Do You Feel Safe in your Home?: Yes Lack of Transportation: No Lack of Food: Never True Current Housing: I Have Housing Concerned About Future Housing: No Difficulty Paying Gas/Electric Bills: No Difficulty Paying for Meds: No Currently Unemployed: No Education: High School Diploma/GED Difficulty w/ Childcare or Family Care: No Living arrangements: other Additional living arrangements comments: [facility] Gender identity (if verbalized by the patient): Female Sexual Orientation (if Verbalized by the Patient): Straight or Heterosexual Spiritual care concerns: No Anes - Eval Final PreProcedure Day of Procedure 01/03/24 11:49 Patient weight: normal Heart: regular rate and rhythm Lungs: clear to auscultation Airway: Mallampati scale class II Neurological: lethargic and hemiparesis Last oral intake: >/= 8 hours ASA classification: IV Emergent: no Anesthetic plan: proceed Anesthesia type and monitoring: general GIVS and standard monitoring Results Review: All pre-operative results and documents have been reviewed as part of the pre- operative evaluation. All notes reviewed from NH and appreciated. Discussed w pt and her two sons at bedside. Pt is critically ill and mostly unresponsive for PEG. Family wishes to proceed w procedure and sedation at this time. Informed Consent: The patient's anesthetic plan and its attendant risks and benefits were discussed with the patient/family/POA. Questions were solicited and answers provided to the satisfaction of the patient/family/POA.
[2024-01-03] MEDS: BENZOCAINE (*SP) 60 ML SPRAY CAN (HURRICAINE) 1 SPRAY MUCOUS MEM (12:04)
--- NOTE | 2024-01-03 12:49 | SUR.PHASEII ---
report given to celestina at rehab facility at [id number]
--- NOTE | 2024-01-03 13:10 | SUR.OPER ---
pt nauseous jaylene notified and orders for zofran 4mg iv push given
[2024-01-03] MEDS: ONDANSETRON INJ 4 MG/2 ML VIAL IV PUSH (13:18)
== END 2024-01-03 14:18 ==
PROVIDERS: PCP Family Medicine; Visit Provider Internal Medicine Gastroenterology
PROC: 0DH63UZ Insertion of Feeding Device into Stomach, Percutaneous Approach (ICD-10-PCS; CPT 43246; principal; 2024-01-03 12:30)
DX: I69.391 Dysphagia following cerebral infarction (principal); R13.19 Other dysphagia; K44.9 Diaphragmatic hernia without obstruction or gangrene; I10 Essential (primary) hypertension; E11.65 Type 2 diabetes mellitus with hyperglycemia; E46 Unspecified protein-calorie malnutrition; Z68.24 Body mass index [BMI] 24.0-24.9, adult; R41.841 Cognitive communication deficit; Z79.82 Long term (current) use of aspirin; Z79.02 Long term (current) use of antithrombotics/antiplatelets; Z79.84 Long term (current) use of oral hypoglycemic drugs
CPT/HCPCS: 43246; 82948; J0690; J2003; J2405; J2704; J7120

== ENCOUNTER 2024-01-03 16:48 | Emergency (ER) | payer MEDICARE, SELFPAY ==
[2024-01-03] VITALS (9 sets, daily range): BP systolic 124–150; BP diastolic 58–74; PULSE 87–95; RESP 15–24; TEMP 36.7; O2SAT 95–96
--- NOTE | ~2024-01-03 | CT_ITS ---
EXAMINATION: CT soft tissue neck w con DATE: 01/03/2024 20:03 INDICATION: Right mandibular swelling. TECHNIQUE: Computed tomography (CT) of the neck was performed with 75 mL Omnipaque-350 intravenous co ntrast. Automated exposure control and iterative reconstruction technique were employed. The dose-nancy gth product was 436.87 mGy-cm. COMPARISON: chest CT 12/13/23 FINDINGS: There is mild scarring at the lung apices. There are likely changes of ocular lens replacem ent surgeries. Right parotid gland is enlarged with surrounding fat stranding, consistent with paroti ditis. There is no sialolith. There are no pathologically enlarged lymph nodes. There is an 8 mm nodu le in left thyroid lobe, likely not clinically significant. There are bilateral acute pulmonary embol i including a saddle embolus in the main pulmonary artery. There is plaque in the proximal internal c arotid arteries with less than 50% stenosis relative to normal distal artery lumen diameters. There i s mild mucosal thickening in the ethmoid sinuses. The mastoid air cells are normal. There is moderate cervical spondylosis. There is a sclerotic lesion in C7 vertebral body, likely benign. IMPRESSION: 1. Acute pulmonary emboli. I called this result to Shawna Martinez. 2. Right-sided parotiditis. Reviewed, dictated and finalized at location A. PER AND RECEIVING
--- NOTE | ~2024-01-03 | CT_ITS ---
EXAMINATION: CTA chest PE protocol DATE: 01/03/2024 21:10 INDICATION: Acute pulmonary emboli. TECHNIQUE: Computed tomography angiography (CTA) of the chest was performed with 100 mL Omnipaque-350 intravenous contrast timed to evaluate the pulmonary arteries. Coronal maximum intensity projection 3D-reconstructions were created by the technologist. Automated exposure control and iterative reconst ruction technique were employed. The dose-length product was 433.96 mGy-cm. COMPARISON: Chest CT 12/13/2023 FINDINGS: The lungs demonstrate mild atelectasis. No pleural effusion. Cardiomegaly is noted. No lincoln cardial effusion. There are acute pulmonary emboli in all lobes. There is a saddle embolus in main pu lmonary artery. There is a small sliding hiatal hernia. There is cortical thinning of the kidneys. A gastrostomy tube is noted. There is mild thoracic spondylosis. There is a sclerotic lesion in C7 vert ebral body, probably benign. There is severe lumbar spondylosis. IMPRESSION: 1. Acute pulmonary emboli. 2. Cardiomegaly without change from 12/13/2023. No right heart strain. Reviewed, dictated and finalized at location A. RPROOFER
[2024-01-03] MEDS: SODIUM CHLORIDE 0.9% IV 1,000 ML 999 ML IV CONT ×2 (18:07→23:10)
--- NOTE | 2024-01-03 18:13 | ED_ITS ---
HPI - General Adult General Chief complaint: Skin/Abscess/Foreign Body <Shawna Martinez PA-C - Last Filed: 01/04/24 02:20> Stated complaint: R sided facial swelling <FRANCISCO Rosa Last Filed: 01/04/24 02:20> Time Seen by Provider: 01/03/24 16:58 <FRANCISCO Rosa Last Filed: 01/04/24 02:20> Source: patient and family <FRANCISCO Rosa Last Filed: 01/04/24 02:20> Mode of arrival: EMS <FRANCISCO Rosa Last Filed: 01/04/24 02:20> Limitations: language barrier and clinical condition <FRANCISCO Rosa Last Filed: 01/04/24 02:20> History of Present Illness HPI narrative: Patient is an 83-year-old female, with past medical history of CVA with residual dysarthria/dysphagia, who presents to the ED via EMS with report of R sided facial swelling. Daughter at bedside assisted in providing information. Reports patient has had multiple strokes since October. Has had decreased intake over the last 2 weeks and a PEG tube was placed today for parental nutrition. Daughter reports the rehab facility then noticed swelling along patient's R sided lower jaw today. She was then sent here for further evaluation. Patient denies difficulty breathing, itching/rash, difficulty opening mouth, ear pain. Denies fevers. <FRANCISCO Rosa Last Filed: 01/04/24 02:20> Related Data Home medications: Home Medications Medication Instructions Recorded Confirmed aspirin 81 mg tablet,delayed 81 mg PO DAILY 11/14/23 01/03/24 release clopidogrel 75 mg tablet 75 mg PO DAILY 11/14/23 01/03/24 metformin 500 mg tablet 500 mg PO BIDWM 11/14/23 01/03/24 ondansetron 4 mg disintegrating 4 mg PO Q8H PRN Nausea And Vomiting 11/14/23 01/03/24 tablet acetaminophen 325 mg tablet 650 mg PO Q6H PRN Pain 11/16/23 01/03/24 atorvastatin 40 mg tablet 40 mg PO HS 01/01/24 01/03/24 bisacodyl 10 mg rectal suppository 10 mg RECTAL DAILY PRN Constipation 01/01/24 01/03/24 hydralazine 25 mg tablet 25 mg PO QID PRN Hypertension 01/01/24 01/03/24 isosorbide dinitrate 10 mg tablet 10 mg PO BID 01/01/24 01/03/24 losartan 25 mg tablet 25 mg PO DAILY 01/01/24 01/03/24 magnesium oxide 400 mg PO DAILY 01/01/24 01/03/24 meclizine 12.5 mg tablet 12.5 mg PO TID PRN Dizziness Or 01/01/24 01/03/24 Vertigo metoprolol tartrate 25 mg tablet 25 mg PO BID 01/01/24 01/03/24 <Shawna Martinez PA-C - Last Filed: 01/04/24 02:20> Allergies/adverse reactions: Allergies Allergy/AdvReac Type Severity Reaction Status Date / Time No Known Allergies Allergy Verified 01/03/24 11:51 <Shawna Martinez PA-C - Last Filed: 01/04/24 02:20> Review of Systems Review of Systems: All systems reviewed & are unremarkable except as noted in HPI. 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 communication deficit Dysphagia as late effect of stroke HTN (hypertension) Protein calorie malnutrition Stroke Type 2 diabetes mellitus with hyperglycemia <Shawna Martinez PA-C - Last Filed: 01/04/24 02:20> Social History Social History: Social History Smoking status: Never smoker Second hand tobacco smoke exposure: Yes Alcohol intake: never Substance use: never Substance use type: does not use Do You Feel Safe in your Home?: Yes Lack of Transportation: No Lack of Food: Never True Current Housing: I Have Housing Concerned About Future Housing: No Difficulty Paying Gas/Electric Bills: No Difficulty Paying for Meds: No Currently Unemployed: No Education: High School Diploma/GED Difficulty w/ Childcare or Family Care: No Living arrangements: other Additional living arrangements comments: REH[facility] Gender identity (if verbalized by the patient): Female Sexual Orientation (if Verbalized by the Patient): Straight or Heterosexual Spiritual care concerns: No <Shawna Martinez PA-C - Last Filed: 01/04/24 02:20> Exam Narrative: GENERAL: Elderly, somewhat frail, non-toxic, in no acute distress. HEAD: Normocephalic, atraumatic. ENT: Moderate amount of swelling/induration to R lateral inferior mandibular region extending towards inferior R ear. Minimal erythema present. Focal tenderness to palpation. Inner mouth w/o lesions or drainage or dental abnormalities. No trismus or stridor. MMs are very dry. Inner ear is fairly unremarkable. No TM perforation, erythema, bulging. No cerumen impaction. RESPIRATORY: Airway patent, respirations nonlabored. Clear to auscultation bilaterally, no rales, rhonchi, wheezing. CARDIOVASCULAR: Regular rate and rhythm without murmurs, rubs, or gallops. MUSCULOSKELETAL: No gross deformities. SKIN: Warm, dry, normal color. NEURO: Alert, dysarthric speech, consistent with previous CVAs. Able to answer yes/no questions and follow commands. No ataxic movements. PSYCHIATRIC: Appropriate mood and affect. Normal interaction. <Shawna Martinez PA-C - Last Filed: 01/04/24 02:20> Course TILE INSTALLER/PA Physician Supervision This visit was performed by both a physician and an APC. I performed all aspects of the MDM as documented. <Juan Harrington MD - Last Filed: 01/04/24 04:23> Vital Signs Vital signs: Vital Signs Temperature 98.1 F 01/03/24 16:53 Pulse Rate 95 01/03/24 16:53 Respiratory Rate 20 01/03/24 16:53 Blood Pressure 124/63 01/03/24 16:53 Pulse Oximetry 96 01/03/24 16:53 Oxygen Delivery Room Air 01/03/24 16:53 Temperature 98.1 F 01/03/24 16:53 Pulse Rate 86 01/04/24 00:42 Respiratory Rate 19 01/04/24 00:42 Blood Pressure 152/56 H 01/04/24 00:42 Pulse Oximetry 96 01/04/24 00:42 Oxygen Delivery Room Air 01/03/24 16:53 <Shawna Martinez PA-C - Last Filed: 01/04/24 02:20> Vital Signs Temperature 98.1 F 01/03/24 16:53 Pulse Rate 95 01/03/24 16:53 Respiratory Rate 20 01/03/24 16:53 Blood Pressure 124/63 01/03/24 16:53 Pulse Oximetry 96 01/03/24 16:53 Oxygen Delivery Room Air 01/03/24 16:53 Temperature 98.1 F 01/03/24 16:53 Pulse Rate 86 01/04/24 00:42 Respiratory Rate 19 01/04/24 00:42 Blood Pressure 152/56 H 01/04/24 00:42 Pulse Oximetry 96 01/04/24 00:42 Oxygen Delivery Room Air 01/03/24 16:53 <Juan Harrington MD - Last Filed: 01/04/24 04:23> Medical Decision Making MDM Narrative Medical decision making narrative: Patient presented to ED with swelling to right lateral jaw, noticed today by rehab facility. Vital signs are stable upon arrival. Patient is afebrile here. Cbc with blood cell count of 12.1. Chronic mild anemia, consistent with previous records. Sodium slightly low at 133. Fluids ongoing. Otherwise stable electrolytes, stable kidney function. Inflammatory markers are mildly elevated. CT of soft tissue neck was obtained and showing R sided parotitis. Consistent with exam and clinical picture. Given that patient has been in an out of hospital/rehabilitation centers recently, will treat aggressively with vancomycin and Zosyn for possible hospital-acquired infection. Blood cultures were obtained. Lactic acid within normal limits at 1.1. Incidentally on CT of neck, bilateral PEs with saddle PE were found. CTA of chest confirming this, no evidence of right heart strain. EKG with nonspecific ST changes. Troponin is 0.012. BNP is elevated to 2250. Patient does not appear acutely fluid overloaded. Discussed PE finding with patient's daughter. She reports patient was recently diagnosed with DVTs of her lower extremities, but was unable to receive anticoagulation due to recent CVA. Extensive investigation into recent records/hospitalizations, venous Doppler US on 12/14 showed edwardo DVT. There was a hemorrhagic component noted on MRI of her recent cerebellar infarct (dated 12/16). At that time, there was no evidence of PE and neurology recommended against anticoagulation due to hemorrhagic possibility. There was discussion of patient receiving an IVC filter however this was felt to be appropriate for outpatient follow-up with vascular surgery. Given patient now with bilateral PE with saddle PE, will discuss with vascular surgery more emergent placement of IVC filter to prevent further propagation of clot burden. I had a long discussion with patient's daughter about goals of life/therapy. Daughter does understand that an IVC filter would be somewhat a temporizing measure and will not treat the clots that are already present in her lungs. Discuss life-threatening possibility of treating with anticoagulation and causing further intracranial bleeding versus potential life-threatening possibility of foregoing ivc/anticoagulation and clot burden increases to the point of causing hemodynamic instability. At this time, patient is hemodynamically stable and daughter does wish to proceed with attempting IVC. Discussed case with Dr. Brando Field, hospitalist at [facility], accepted patient for transfer/admission, however prolonged wait for bed. Will try [facility] to see if faster. Discussed case with Dr. Nick Carrero, [facility], accepted patient for transfer/admission. Patient received bed. Daughter in agreement with plan and transfer. All questions answered. ALS transport w/o issue. <Shawna Martinez PA-C - Last Filed: 01/04/24 02:20> Medical Records Medical records reviewed: Yes I reviewed the external patient's medical records. <Shawna Martinez PA-C - Last Filed: 01/04/24 02:20> Vital Signs Vital Signs: Vital Signs Temperature 98.1 F 01/03/24 16:53 Pulse Rate 95 01/03/24 16:53 Respiratory Rate 20 01/03/24 16:53 Blood Pressure 124/63 01/03/24 16:53 Pulse Oximetry 96 01/03/24 16:53 Oxygen Delivery Room Air 01/03/24 16:53 Temperature 98.1 F 01/03/24 16:53 Pulse Rate 86 01/04/24 00:42 Respiratory Rate 19 01/04/24 00:42 Blood Pressure 152/56 H 01/04/24 00:42 Pulse Oximetry 96 01/04/24 00:42 Oxygen Delivery Room Air 01/03/24 16:53 <Shawna Martinez PA-C - Last Filed: 01/04/24 02:20> Vital Signs Temperature 98.1 F 01/03/24 16:53 Pulse Rate 95 01/03/24 16:53 Respiratory Rate 20 01/03/24 16:53 Blood Pressure 124/63 01/03/24 16:53 Pulse Oximetry 96 01/03/24 16:53 Oxygen Delivery Room Air 01/03/24 16:53 Temperature 98.1 F 01/03/24 16:53 Pulse Rate 86 01/04/24 00:42 Respiratory Rate 19 01/04/24 00:42 Blood Pressure 152/56 H 01/04/24 00:42 Pulse Oximetry 96 01/04/24 00:42 Oxygen Delivery Room Air 01/03/24 16:53 <Juan Harrington MD - Last Filed: 01/04/24 04:23> Lab Data Lab results reviewed: Yes I reviewed the patient's lab results. <Shawna Martinez PA-C - Last Filed: 01/04/24 02:20> Result diagrams: 01/03/24 17:29 01/03/24 17:29 <Shawna Martinez PA-C - Last Filed: 01/04/24 02:20> Labs: Lab Results 01/03/24 01/03/24 01/03/24 Range/Units 17:29 19:46 20:30 WBC 12.1 H (4.5-10.0) K/mm3 RBC 3.61 L (4.2-5.4) M/mm3 Hgb 10.8 L (12.0-15.0) g/dL Hct 33.6 L (37.0-47.0) % MCV 93.1 (80-100) fl MCH 29.9 (26-34) pg MCHC 32.1 (32-36) g/dl RDW 12.8 (11.5-14.5) % Plt Count 312 (150-375) k/mm3 MPV 10.9 H (7.4-10.4) fl Immature Gran % (Auto) 0.4 (0-0.5) % Neut % (Auto) 80.9 H (45.5-73.1) % Lymph % (Auto) 11.5 L (18.3-44.2) % Casey % (Auto) 6.2 (2.6-8.5) % Eos % (Auto) 0.5 (0-4.4) % Baso % (Auto) 0.5 (0.2-1.2) % Lymph # (Auto) 1.40 (0.9-3.2) K/mm3 Casey # (Auto) 0.8 H (0.1-0.6) K/mm3 Eos # (Auto) 0.1 (0-0.3) K/mm3 Baso # (Auto) 0.1 (0.0-0.1) K/mm3 Abs Immat Gran (auto) 0.05 H (0.00-0.031) K/mm3 Absolute Neuts (auto) 9.8 H (1.3-6.7) K/mm3 Absolute Nucleated RBC 0.000 (0.0-0.012) K/mm3 Nucleated RBC % 0.0 (0.0-0.2) % ESR 74 H (0-20) mm/hr PT 14.8 H (11.1-14.7) Seconds INR 1.1 APTT 31.2 (22.3-36.8) Seconds Sodium 133 L (137-145) mmol/L Potassium 4.2 (3.4-5.0) mmol/L Chloride 97 L (98-107) mmol/L Carbon Dioxide 28 (22-30) mmol/L Anion Gap 8 (4-12) mmol/L BUN 22 H (7-17) mg/dL Creatinine 0.60 L (0.7-1.0) mg/dL Estim Creat Clear Calc Not Reportable Estimated GFR > 60 (59 - ) Glucose 118 H (65-110) mg/dL Lactic Acid 1.1 (0.7-2.0) mmol/L Calcium 9.0 (8.4-10.2) mg/dL Total Bilirubin 1.2 (0.2-1.3) mg/dL AST 21 (14-36) U/L ALT 10 (6-35) U/L Alkaline Phosphatase 89 (38-126) U/L Troponin I 0.012 (0.000-0.034) ng/mL C-Reactive Protein 6.7 H (<1.0) mg/dL NT-Pro-B Natriuret Pep 2250 H (19.9-100) pg/mL Total Protein 6.0 L (6.3-8.2) g/dL Albumin 3.2 L (3.5-5.1) g/dL <Shawna Martinez PA-C - Last Filed: 01/04/24 02:20> Lab Results 01/03/24 01/03/24 01/03/24 Range/Units 17:29 19:46 20:30 WBC 12.1 H (4.5-10.0) K/mm3 RBC 3.61 L (4.2-5.4) M/mm3 Hgb 10.8 L (12.0-15.0) g/dL Hct 33.6 L (37.0-47.0) % MCV 93.1 (80-100) fl MCH 29.9 (26-34) pg MCHC 32.1 (32-36) g/dl RDW 12.8 (11.5-14.5) % Plt Count 312 (150-375) k/mm3 MPV 10.9 H (7.4-10.4) fl Immature Gran % (Auto) 0.4 (0-0.5) % Neut % (Auto) 80.9 H (45.5-73.1) % Lymph % (Auto) 11.5 L (18.3-44.2) % Casey % (Auto) 6.2 (2.6-8.5) % Eos % (Auto) 0.5 (0-4.4) % Baso % (Auto) 0.5 (0.2-1.2) % Lymph # (Auto) 1.40 (0.9-3.2) K/mm3 Casey # (Auto) 0.8 H (0.1-0.6) K/mm3 Eos # (Auto) 0.1 (0-0.3) K/mm3 Baso # (Auto) 0.1 (0.0-0.1) K/mm3 Abs Immat Gran (auto) 0.05 H (0.00-0.031) K/mm3 Absolute Neuts (auto) 9.8 H (1.3-6.7) K/mm3 Absolute Nucleated RBC 0.000 (0.0-0.012) K/mm3 Nucleated RBC % 0.0 (0.0-0.2) % ESR 74 H (0-20) mm/hr PT 14.8 H (11.1-14.7) Seconds INR 1.1 APTT 31.2 (22.3-36.8) Seconds Sodium 133 L (137-145) mmol/L Potassium 4.2 (3.4-5.0) mmol/L Chloride 97 L (98-107) mmol/L Carbon Dioxide 28 (22-30) mmol/L Anion Gap 8 (4-12) mmol/L BUN 22 H (7-17) mg/dL Creatinine 0.60 L (0.7-1.0) mg/dL Estim Creat Clear Calc Not Reportable Estimated GFR > 60 (59 - ) Glucose 118 H (65-110) mg/dL Lactic Acid 1.1 (0.7-2.0) mmol/L Calcium 9.0 (8.4-10.2) mg/dL Total Bilirubin 1.2 (0.2-1.3) mg/dL AST 21 (14-36) U/L ALT 10 (6-35) U/L Alkaline Phosphatase 89 (38-126) U/L Troponin I 0.012 (0.000-0.034) ng/mL C-Reactive Protein 6.7 H (<1.0) mg/dL NT-Pro-B Natriuret Pep 2250 H (19.9-100) pg/mL Total Protein 6.0 L (6.3-8.2) g/dL Albumin 3.2 L (3.5-5.1) g/dL <Jaun Harrington MD - Last Filed: 01/04/24 04:23> Imaging Data Attestation: I personally reviewed and interpreted this imaging study as follows: <Shawna Martinez PA-C - Last Filed: 01/04/24 02:20> Radiologist's impression: ITS Impressions Soft Tissue Neck CT 01/03/24 20:04 IMPRESSION: 1. Acute pulmonary emboli. I called this result to Shawna Martinez. 2. Right-sided parotiditis. Chest CTA 01/03/24 21:11 IMPRESSION: 1. Acute pulmonary emboli. 2. Cardiomegaly without change from 12/13/2023. No right heart strain. <FRANCISCO Rosa Last Filed: 01/04/24 02:20> ECG Data EKG #1: Attestation: I personally reviewed and interpreted this ECG as follows: <FRANCISCO Rosa Last Filed: 01/04/24 02:20> ECG completion date: 01/03/24 <FRANCISCO Rosa Last Filed: 01/04/24 02:20> ECG completion time: 20:36 <FRANCISCO Rosa Last Filed: 01/04/24 02:20> EKG Interpretation: normal rate (90), sinus rhythm and non-specific ST changes <FRANCISCO Rosa Last Filed: 01/04/24 02:20> Discharge Plan Discharge Clinical Impression: Bilateral pulmonary embolism, History of cerebellar stroke, Acute parotitis Acute saddle pulmonary embolism Qualifiers: Acute cor pulmonale presence: without acute cor pulmonale Qualified Code(s): I26.92 - Saddle embolus of pulmonary artery without acute cor pulmonale <FRANCISCO Rosa Last Filed: 01/04/24 02:20> Patient Disposition: Acute Care Hospital <FRANCISCO Rosa Last Filed: 01/04/24 02:20> Condition: Guarded Prognosis <FRANCISCO Rosa Last Filed: 01/04/24 02:20> Prescriptions: No Action isosorbide dinitrate 10 mg tablet 10 mg PO BID atorvastatin 40 mg Tablet 40 mg PO HS hydralazine 25 mg Tablet 25 mg PO QID PRN (Reason: Hypertension) Rx Instructions: SBP >160 meclizine 12.5 mg tablet 12.5 mg PO TID PRN (Reason: Dizziness Or Vertigo) bisacodyl 10 mg Suppository 10 mg RECTAL DAILY PRN (Reason: Constipation) losartan 25 mg tablet 25 mg PO DAILY metoprolol tartrate 25 mg Tablet 25 mg PO BID magnesium oxide 400 mg magnesium Tablet 400 mg PO DAILY metformin 500 mg Tablet 500 mg PO BIDWM clopidogrel 75 mg Tablet 75 mg PO DAILY aspirin 81 mg Tablet,Delayed Release (Dr/Ec) 81 mg PO DAILY ondansetron 4 mg Tablet,Disintegrating 4 mg PO Q8H PRN (Reason: Nausea And Vomiting) acetaminophen 325 mg Tablet 650 mg PO Q6H PRN (Reason: Pain) <Shawna Martinez PA-C - Last Filed: 01/04/24 02:20> Follow-up/Referrals: Tod,Aston Brambila MD [Primary Care Provider] - <Shawna Martinez PA-C - Last Filed: 01/04/24 02:20>
[2024-01-03 19:15] LABS: Basophils Absolute Auto 0.1 K/mm3 (0.0-0.1); Basophils Percent Auto 0.5 % (0.2-1.2); Eosinophils Absolute Auto 0.1 K/mm3 (0-0.3); Eosinophils Percent Auto 0.5 % (0-4.4); Hematocrit 33.6 % (37.0-47.0); Hemoglobin 10.8 g/dL (12.0-15.0); Immature Granulocyte Absolute 0.05 K/mm3 (0.00-0.031); Immature Granulocyte Percent A 0.4 % (0-0.5); Lymphocytes Percent Auto 11.5 % (18.3-44.2); Mean Corpuscular HGB Conc 32.1 g/dl (32-36); Mean Corpuscular Hemoglobin 29.9 pg (26-34); Mean Corpuscular Volume 93.1 fl (80-100); Mean Platelet Volume 10.9 fl (7.4-10.4); Monocytes Absolute Auto 0.8 K/mm3 (0.1-0.6); Monocytes Percent Auto 6.2 % (2.6-8.5); Neutrophils Absolute Auto 9.8 K/mm3 (1.3-6.7); Neutrophils Percent Auto 80.9 % (45.5-73.1); Platelet Count Result 312 k/mm3 (150-375); Red Blood Count 3.61 M/mm3 (4.2-5.4); Red Cell Distribution Width 12.8 % (11.5-14.5); White Blood Count 12.1 K/mm3 (4.5-10.0)
[2024-01-03 19:30] LABS: Alanine Aminotransferase 10 U/L (6-35); Albumin Level 3.2 g/dL (3.5-5.1); Alkaline Phosphatase 89 U/L (38-126); Anion Gap 8 mmol/L (4-12); Aspartate Amino Transferase 21 U/L (14-36); Bilirubin,Total 1.2 mg/dL (0.2-1.3); Blood Urea Nitrogen 22 mg/dL (7-17); CRP 6.7 mg/dL (<1.0); Carbon Dioxide 28 mmol/L (22-30); Chloride 97 mmol/L (98-107); Estimated Glomerular Filt Rate > 60; Glucose 118 mg/dL (65-110); Potassium 4.2 mmol/L (3.4-5.0); Sodium 133 mmol/L (137-145)
--- NOTE | 2024-01-03 19:39 | PC.NURSE ---
Assumed care of pt after receiving report from CIELO Rosas. @ [id number]
[2024-01-03 19:41] LABS: Erythrocyte Sedimentation Rate 74 mm/hr (0-20)
[2024-01-03 20:04] LABS: Lactic Acid Reflex 1.1 mmol/L (0.7-2.0)
--- NOTE | 2024-01-03 20:08 | ECG_ITS ---
Test Date: 2024-01-03 20:36:42 Measurements Intervals [place] Rate: 90 P: 38 CT: 185 QRS: -35 QRSD: 94 T: 41 QT: 372 QTc: 457 Interpretive Statements SINUS RHYTHM CONSIDER ANTERIOR INFARCT, AGE INDETERMINATE INFERIOR INFARCT, AGE INDETERMINATE BORDERLINE ST-T WAVE ABNORMALITY- ANTEROLAT/HIGH LAT LEADS BASELINE ARTIFACT- I, II, III, AVR, AVL, AVF, V1-V6 ABNORMAL ECG Compared to ECG 12/13/2023 16:09:17 Possible ischemia no longer present Electronically Signed On 01-04-2024 06:42:06 STOCK ANALYST by Tomasz Schafer D.O.
[2024-01-03 21:05] LABS: INR 1.1; Prothrombin Time 14.8 Seconds (11.1-14.7)
[2024-01-03 21:06] LABS: Partial Thromboplastin Time 31.2 Seconds (22.3-36.8)
[2024-01-03 21:13] LABS: NT Pro B Type Natriuretic Pept 2250 pg/mL (19.9-100); Troponin I 0.012 ng/mL (0.000-0.034)
[2024-01-03] MEDS: PIPERACILLIN/TAZ 4.5G/NS 100ML 4.5 GM/100 ML BAG IVPB (22:07)
[2024-01-03] MEDS: [UNRECOGNIZED DRUG - REMARK] 1 EACH XX (22:37)
[2024-01-03] MEDS: VANCOMYCIN 1,500 MG/NS 500 ML 1,500 MG/500 ML BAG 250 MG IVPB (23:10)
--- NOTE | 2024-01-04 00:24 | PC.NURSE ---
Spoke with Gracie with [facility] transfer center who stated pt has been accepted to [facility] under Dr. Carrero and would most likely receive a bed later tonight.
[2024-01-04 00:42] VITALS: BP 152/56; PULSE 86; RESP 19; O2SAT 96
== END 2024-01-04 01:25 | disposition short-term general hospital (02) ==
LOC: ANHED 17:01
PROVIDERS: Emergency Provider Physician Assistant; PCP Family Medicine
DX: I26.92 Saddle embolus of pulmonary artery without acute cor pulmonale (principal); K11.21 Acute sialoadenitis; I69.391 Dysphagia following cerebral infarction; I69.322 Dysarthria following cerebral infarction; R13.10 Dysphagia, unspecified; I10 Essential (primary) hypertension; E11.9 Type 2 diabetes mellitus without complications; D64.9 Anemia, unspecified; R41.841 Cognitive communication deficit; Z93.1 Gastrostomy status; Z86.718 Personal history of other venous thrombosis and embolism; Z79.82 Long term (current) use of aspirin; Z79.84 Long term (current) use of oral hypoglycemic drugs; Z79.02 Long term (current) use of antithrombotics/antiplatelets; Z79.899 Other long term (current) drug therapy; R94.31 Abnormal electrocardiogram [ECG] [EKG]
CPT/HCPCS: 36415; 70491; 71275; 80053; 83605; 83880; 84484; 85025; 85610; 85652; 85730; 86140; 87040; 93005; 96361; 96365; 96366; 96367; 99285; J2543; J3370; J7030; Q9967